=== PATIENT | male | born 1955 | race Caucasian/White ===

== ENCOUNTER → 2017-01-23 | Outpatient (CLI) | payer BC ==
[2017-01-23 20:10] LABS: Basophils # (A) 0.1 k/uL (0-0.2); Basophils % (A) 1 %; CH 29.2; CHCM 31.8; Eosinophils # (A) 0.2 k/uL (0-0.7); Eosinophils % (A) 3 %; HCT 46.1 % (39.0-53.0); HDW 2.75; HGB 14.4 gm/dL (13.0-17.5); Hypochromasia Slight; Luc # (Auto) 0.12; Luc % (Auto) 2; Lymphocytes # (A) 1.3 k/uL (1.0-4.8); Lymphocytes % (A) 25 %; MCH 28.9 pg (25.0-35.0); MCHC 31.3 g/dL (31.0-37.0); MCV 92.4 fL (80.0-100.0); Mean Platelet Volume 8.9; Monocytes # (A) 0.3 k/uL (0-1.0); Monocytes % (A) 5 %; Neutrophils # (A) 3.3 k/uL (1.3-7.7); Neutrophils % (A) 64 %; RBC 4.99 m/uL (4.30-5.90); RDW 15.2 % (11.5-15.5); WBC 5.2 k/uL (3.8-10.6); WBC (Perox) 5.36
[2017-01-23 20:20] LABS: ALT 46 U/L (21-72); AST 63 U/L (17-59); Alkaline Phosphatase 45 U/L (38-126); Anion Gap 12 mmol/L; Blood Urea Nitrogen 22 mg/dL (9-20); Calcium 9.6 mg/dL (8.4-10.2); Carbon Dioxide 24 mmol/L (22-30); Chloride 102 mmol/L (98-107); Cholesterol 174 mg/dL (<200); Glucose 102 mg/dL (74-99); HDL Cholesterol 40 mg/dL (40-60); Non-African American GFR(MDRD) >60 (>60 ml/min/1.73 sqM); Potassium 4.2 mmol/L (3.5-5.1); Sodium 138 mmol/L (137-145); Total Bilirubin 0.8 mg/dL (0.2-1.3); Total Protein 6.3 g/dL (6.3-8.2); Triglycerides 160 mg/dL (<150)
== END ==
LOC: MMGSC 12:10
PROVIDERS: ATTEND Family Medicine
DX: Z00.00 Encounter for general adult medical examination without abnormal findings (principal); I10 Essential (primary) hypertension; Z12.5 Encounter for screening for malignant neoplasm of prostate
CPT/HCPCS: 84439; 80053; 80061; 84443; 85025; 36415; G0103

== ENCOUNTER → 2017-05-15 | Outpatient (CLI) | payer BC ==
[2017-05-15 18:44] LABS: ALT 34 U/L (21-72); AST 29 U/L (17-59); Alkaline Phosphatase 52 U/L (38-126); Anion Gap 7 mmol/L; Blood Urea Nitrogen 12 mg/dL (9-20); Calcium 9.3 mg/dL (8.4-10.2); Carbon Dioxide 29 mmol/L (22-30); Chloride 101 mmol/L (98-107); Glucose 81 mg/dL (74-99); Non-African American GFR(MDRD) >60 (>60 ml/min/1.73 sqM); Potassium 4.7 mmol/L (3.5-5.1); Sodium 137 mmol/L (137-145); Total Bilirubin 0.6 mg/dL (0.2-1.3); Total Protein 6.7 g/dL (6.3-8.2)
[2017-05-15 18:45] LABS: Anisocytosis Slight; Basophils % (A) 1 %; CH 29.2; CHCM 33.9; Eosinophils # (A) 0.2 k/uL (0-0.7); Eosinophils % (A) 5 %; HCT 48.4 % (39.0-53.0); HDW 2.49; HGB 15.8 gm/dL (13.0-17.5); Luc # (Auto) 0.11; Luc % (Auto) 2; Lymphocytes # (A) 1.6 k/uL (1.0-4.8); Lymphocytes % (A) 32 %; MCH 28.3 pg (25.0-35.0); MCHC 32.7 g/dL (31.0-37.0); MCV 86.7 fL (80.0-100.0); Mean Platelet Volume 9.5; Monocytes # (A) 0.4 k/uL (0-1.0); Monocytes % (A) 7 %; Neutrophils # (A) 2.7 k/uL (1.3-7.7); Neutrophils % (A) 53 %; RBC 5.59 m/uL (4.30-5.90); RDW 17.7 % (11.5-15.5); WBC 5.1 k/uL (3.8-10.6); WBC (Perox) 4.81
== END | disposition home or self-care (01) ==
LOC: MMGSC 12:43
PROVIDERS: ATTEND Family Medicine
DX: I48.91 Unspecified atrial fibrillation (principal)
CPT/HCPCS: 36415; 80053; 84439; 84443; 85025

== ENCOUNTER 2017-06-25 11:16 | Emergency (ER) | payer BC ==
[2017-06-25 11:27] VITALS: TEMP 97
[2017-06-25] MEDS ORDERED: SODIUM CHLORIDE 0.9% 1,000 ML IV STA ×3 (13:06→13:29)
--- NOTE | 2017-06-25 13:09 | ED ---
Weakness HPI - General Chief complaint: Weakness Stated complaint: weakness Time Seen by Provider: 06/25/17 12:03 Source: patient, family, RN notes reviewed Mode of arrival: ambulatory Limitations: no limitations, physical limitation - History of Present Illness Initial comments: This is a 61-year-old male with a history of A. fib who presents with complaints of generalized weakness 3 days of a dry cough he also states she's not been sleeping very well he also states he's been using more of his hydrocodone and normal or the past 2 months he states when he tries to cut back he says getting burning pain in his left leg which he has had a period he generally just does not feel well here for evaluation. He denies any overt fever but he states he did have hot and cold flashes the last couple days to his lower extremities. Patient does state that he was recently evaluated by his physician as a prelude to possible cardiac ablation by cardiology. He states this started he knows his lab work was normal. MD Complaint: generalized weakness - Related Data Home Medications Medication Instructions Recorded Confirmed Escitalopram [Lexapro] 20 mg PO DAILY 11/27/14 06/25/17 Multivitamins, Thera [Multivitamin] 1 tab PO DAILY 07/07/16 06/25/17 Acetaminophen Tab [Tylenol Tab] 1,000 mg PO Q6HR PRN 06/25/17 06/25/17 Apixaban [Eliquis] 5 mg PO BID 06/25/17 06/25/17 HYDROcodone/APAP 7.5-325MG [[place] 1 tab PO Q6HR PRN 06/25/17 06/25/17 7.5-325] Metoprolol Tartrate [Lopressor] 25 mg PO BID 06/25/17 06/25/17 Previous Rx's Medication Instructions Recorded Hydrocodone/Acetaminophen [[place] 1 tab PO QID #20 tab 06/25/17 Plus 7.5-325 mg Tablet] Hydrocodone/Acetaminophen [[place] 1 each PO Q6HR PRN #20 tab 06/25/17 5-325] Allergies Allergy/AdvReac Type Severity Reaction Status Date / Time No Known Allergies Allergy Verified 06/25/17 13:46 Review of Systems ROS Statement: Those systems with pertinent positive or pertinent negative responses have been documented in the HPI. ROS Other: All systems not noted in ROS Statement are negative. Past Medical History Past Medical History: Atrial Fibrillation, Hypertension Additional Past Medical History / Comment(s): Chronic back pain History of Any Multi-Drug Resistant Organisms: None Reported Past Surgical History: Appendectomy, Orthopedic Surgery Past Psychological History: No Psychological Hx Reported Smoking Status: Never smoker Past Alcohol Use History: None Reported Past Drug Use History: None Reported General Exam - General Exam Comments Initial Comments: This is a well-developed well-nourished awake alert oriented 3 male Limitations: no limitations, physical limitation General appearance: alert, in no apparent distress Head exam: Present: atraumatic, normocephalic, normal inspection Eye exam: Present: normal appearance, PERRL, EOMI. Absent: scleral icterus, conjunctival injection, periorbital swelling ENT exam: Present: mucous membranes dry Neck exam: Present: normal inspection. Absent: tenderness, meningismus, lymphadenopathy Respiratory exam: Present: normal lung sounds bilaterally. Absent: respiratory distress, wheezes, rales, rhonchi, stridor Cardiovascular Exam: Present: regular rate, normal rhythm, tachycardia, irregular rhythm. Absent: systolic murmur, diastolic murmur, rubs, gallop, clicks GI/Abdominal exam: Present: soft, normal bowel sounds. Absent: distended, tenderness, guarding, rebound, rigid Extremities exam: Present: normal inspection, full ROM, normal capillary refill. Absent: tenderness, pedal edema, joint swelling, calf tenderness Back exam: Present: normal inspection Neurological exam: Present: alert, oriented X3, CN II-XII intact Psychiatric exam: Present: normal affect, normal mood Skin exam: Present: warm, dry, intact, normal color. Absent: rash Course Vital Signs 06/25/17 06/25/17 11:23 14:18 Temperature 97.0 F L Pulse Rate 90 89 Respiratory 18 18 Rate Blood Pressure 138/93 121/66 O2 Sat by Pulse 98 98 Oximetry EKG Findings - EKG Results: EKG: interpreted by KEIKO (Atrial fibrillation rate was 93 QRS 92 QT since QTC of 370/469 st-t wave changes.) Medical Decision Making - Medical Decision Making I did discuss findings with the patient he will be discharged he will be placed on appropriate medication is a follow-up with his doctors as possible the presentation is consistent with withdrawal - Lab Data Result diagrams: 06/25/17 13:26 06/25/17 13:26 Lab Results 06/25/17 06/25/17 06/25/17 Range/Units 13:26 13:26 13:26 WBC 6.9 (3.8-10.6) k/uL RBC 4.98 (4.30-5.90) m/uL Hgb 14.9 (13.0-17.5) gm/dL Hct 44.4 (39.0-53.0) % MCV 89.2 (80.0-100.0) fL MCH 29.8 (25.0-35.0) pg MCHC 33.5 (31.0-37.0) g/dL RDW 15.6 H (11.5-15.5) % Plt Count 197 (150-450) k/uL Neutrophils % 73 % Lymphocytes % 18 % Monocytes % 4 % Eosinophils % 3 % Basophils % 1 % Neutrophils # 5.1 (1.3-7.7) k/uL Lymphocytes # 1.3 (1.0-4.8) k/uL Monocytes # 0.3 (0-1.0) k/uL Eosinophils # 0.2 (0-0.7) k/uL Basophils # 0.0 (0-0.2) k/uL Sodium 138 (137-145) mmol/L Potassium 4.2 (3.5-5.1) mmol/L Chloride 103 (98-107) mmol/L Carbon Dioxide 24 (22-30) mmol/L Anion Gap 11 mmol/L BUN 10 (9-20) mg/dL Creatinine 1.11 (0.66-1.25) mg/dL Est GFR (MDRD) Af Amer >60 (>60 ml/min/1.73 sqM) Est GFR (MDRD) Non-Af >60 (>60 ml/min/1.73 sqM) Glucose 154 H (74-99) mg/dL Calcium 9.1 (8.4-10.2) mg/dL Magnesium 1.9 (1.6-2.3) mg/dL Total Bilirubin 0.4 (0.2-1.3) mg/dL AST 25 (17-59) U/L ALT 24 (21-72) U/L Alkaline Phosphatase 75 (38-126) U/L Total Creatine Kinase 519 H (55-170) U/L CK-MB (CK-2) 1.4 (0.0-2.4) ng/mL CK-MB (CK-2) Rel Index 0.3 Total Protein 6.6 (6.3-8.2) g/dL Albumin 3.6 (3.5-5.0) g/dL TSH 0.592 (0.465-4.680) mIU/L - Radiology Data Radiology results: report reviewed (I did review the imaging and reports no acute findings.), image reviewed Disposition Clinical Impression: Medication withdrawal Disposition: HOME SELF-CARE Condition: Good Instructions: Opioid Withdrawal (ED), Opioid Dependence (ED) Prescriptions: Hydrocodone/Acetaminophen [[place] 5-325] 1 each PO Q6HR PRN #20 tab PRN Reason: Pain Hydrocodone/Acetaminophen [[place] Plus 7.5-325 mg Tablet] 1 tab PO QID #20 tab Referrals: Parisa Lee MD [Primary Care Provider] - 1-2 days
--- NOTE | 2017-06-25 13:52 | XR ---
EXAMINATION TYPE: XR chest 2V DATE OF EXAM: 06/25/2017 HISTORY: cough. REFERENCE: NONE. FINDINGS: Heart is mildly enlarged. The lungs are clear. Pleural space are clear. I suspect a hiatal hernia behind the heart. IMPRESSION: 1. CARDIOMEGALY. 2. I'M SUSPICIOUS FOR A HIATAL HERNIA BEHIND THE HEART.
[2017-06-25 14:05] LABS: Basophils % (A) 1 %; CH 29.4; CHCM 33.1; Eosinophils # (A) 0.2 k/uL (0-0.7); Eosinophils % (A) 3 %; HCT 44.4 % (39.0-53.0); HDW 2.68; HGB 14.9 gm/dL (13.0-17.5); Luc # (Auto) 0.07; Luc % (Auto) 1; Lymphocytes # (A) 1.3 k/uL (1.0-4.8); Lymphocytes % (A) 18 %; MCH 29.8 pg (25.0-35.0); MCHC 33.5 g/dL (31.0-37.0); MCV 89.2 fL (80.0-100.0); Mean Platelet Volume 8.1; Monocytes # (A) 0.3 k/uL (0-1.0); Monocytes % (A) 4 %; Neutrophils # (A) 5.1 k/uL (1.3-7.7); Neutrophils % (A) 73 %; RBC 4.98 m/uL (4.30-5.90); RDW 15.6 % (11.5-15.5); WBC 6.9 k/uL (3.8-10.6); WBC (Perox) 6.23
[2017-06-25 14:15] LABS: ALT 24 U/L (21-72); AST 25 U/L (17-59); Alkaline Phosphatase 75 U/L (38-126); Anion Gap 11 mmol/L; Blood Urea Nitrogen 10 mg/dL (9-20); Calcium 9.1 mg/dL (8.4-10.2); Carbon Dioxide 24 mmol/L (22-30); Chloride 103 mmol/L (98-107); Glucose 154 mg/dL (74-99); Magnesium 1.9 mg/dL (1.6-2.3); Non-African American GFR(MDRD) >60 (>60 ml/min/1.73 sqM); Potassium 4.2 mmol/L (3.5-5.1); Sodium 138 mmol/L (137-145); Total Bilirubin 0.4 mg/dL (0.2-1.3); Total Protein 6.6 g/dL (6.3-8.2)
[2017-06-25 14:34] LABS: Creatine Kinase MB 1.4 ng/mL (0.0-2.4)
[2017-06-25 15:24] VITALS: BP 123/65; PULSE 102; RESP 20
== END 2017-06-25 15:24 | disposition home or self-care (01) ==
LOC: EC 11:16
DX: F19.230 Other psychoactive substance dependence with withdrawal, uncomplicated (principal); R05 Cough; I48.91 Unspecified atrial fibrillation; I10 Essential (primary) hypertension; Z79.01 Long term (current) use of anticoagulants; Z79.899 Other long term (current) drug therapy
CPT/HCPCS: 36415; 71020; 80053; 82550; 82553; 83735; 84443; 85025; 87040; 93005; 96360; 96361; 99285

== ENCOUNTER 2018-06-10 17:45 | Emergency (ER) | payer BC ==
[2018-06-10] MEDS ORDERED: SODIUM CHLORIDE 0.9% 500 ML IV STA (18:23)
[2018-06-10] MEDS ORDERED: MAG HYDROX/AL HYDROX/SIMETH 30 ML, HYOSCYAMINE ELIXIR 10 ML, CIMETIDINE HCL 300 MG, LID... PO STA ×4 (18:24)
--- NOTE | 2018-06-10 18:29 | ED ---
Abdominal Pain HPI - General Chief Complaint: Abdominal Pain Stated Complaint: Abd Pain Time Seen by Provider: 06/10/18 18:14 Source: patient, RN notes reviewed Mode of arrival: ambulatory Limitations: no limitations - History of Present Illness Initial Comments: This is a 62-year-old male who presents to the emergency department with chief complaint of abdominal pain. Patient states since 8 PM last evening he has had constant, burning epigastric pain. He states that he has not eaten anything today because he has also felt nauseous. Denies fevers or chills, vomiting or diarrhea, chest pain or shortness of breath. Patient reports a history of GERD and hiatal hernia. He states he took Pepcid today with minimal relief. - Related Data Home Medications Medication Instructions Recorded Confirmed Escitalopram [Lexapro] 20 mg PO DAILY 11/27/14 06/25/17 Multivitamins, Thera [Multivitamin] 1 tab PO DAILY 07/07/16 06/25/17 Acetaminophen Tab [Tylenol Tab] 1,000 mg PO Q6HR PRN 06/25/17 06/25/17 Apixaban [Eliquis] 5 mg PO BID 06/25/17 06/25/17 Metoprolol Tartrate [Lopressor] 25 mg PO BID 06/25/17 06/25/17 Previous Rx's Medication Instructions Recorded Hydrocodone/Acetaminophen [[place] 1 tab PO QID #20 tab 06/25/17 Plus 7.5-325 mg Tablet] Hydrocodone/Acetaminophen [[place] 1 each PO Q12H PRN #20 tab 06/25/17 5-325] Omeprazole [PriLOSEC] 20 mg PO AC-BRKFST #14 cap 06/10/18 Allergies Allergy/AdvReac Type Severity Reaction Status Date / Time No Known Allergies Allergy Verified 06/10/18 17:54 Review of Systems ROS Statement: Those systems with pertinent positive or pertinent negative responses have been documented in the HPI. ROS Other: All systems not noted in ROS Statement are negative. Past Medical History Past Medical History: Atrial Fibrillation, Hypertension Additional Past Medical History / Comment(s): Chronic back pain History of Any Multi-Drug Resistant Organisms: None Reported Past Surgical History: Appendectomy, Orthopedic Surgery Past Psychological History: No Psychological Hx Reported Smoking Status: Never smoker Past Alcohol Use History: None Reported Past Drug Use History: None Reported General Exam - General Exam Comments Initial Comments: General: Awake and alert, well-developed; in no apparent distress. Sitting comfortably on ED stretcher. Does not appear acutely ill. HEENT: Head atraumatic, normocephalic. Pupils are equal, round and reactive to light. Extraocular movements intact. Oropharynx moist without erythema or exudate. Neck: Supple. Normal ROM. Cardiovascular: Regular rate and rhythm. No murmurs, rubs or gallops. Chest symmetrical. Pedal pulses are 2+ equal and palpable bilaterally. Respiratory: Lungs clear to auscultation bilaterally. No wheezes, rales or rhonchi. Normal respiratory effort with no use of accessory muscles. Abdomen: Soft, non-distended. Mild tenderness on palpation of LUQ and epigastrium with voluntary guarding. No rigidity or rebound. Normal bowel sounds in all 4 quadrants. Musculoskeletal: Normal ROM, no tenderness bilateral upper and lower extremities. Skin: [place], warm and dry without rashes or lesions. Neurological: Alert and oriented x3. CN II-XII grossly intact. Speech is fluent and answers are appropriate. No focal neuro deficits. Psychiatric: Normal mood and affect. No overt signs of depression or anxiety noted. Limitations: no limitations Course Vital Signs 06/10/18 06/10/18 06/10/18 17:51 19:32 20:14 Temperature 97.5 F L Pulse Rate 107 H 81 83 Respiratory 18 18 17 Rate Blood Pressure 131/65 128/76 134/98 O2 Sat by Pulse 98 96 96 Oximetry - Reevaluation(s) Reevaluation #1: At this time, patient is resting comfortably in bed. He reports complete resolution of his symptoms after receiving GI cocktail. Abdomen is soft and non -tender. Case discussed with attending physician, Dr. Maxwell. Patient will be sent for an abdominal x-ray at this time. 06/10/18 19:59 Medical Decision Making - Medical Decision Making This is a 62-year-old male who presents to the emergency department with chief complaint of abdominal pain. Patient reports burning epigastric pain since 8 PM last evening. CBC and CMP reveal no significant abnormalities. Patient was given a GI cocktail while in the emergency department and reports complete resolution of his symptoms. Abdomen is soft and non-tender. X-ray KUB reveals no acute abnormalities. Patient will be started on Prilosec and instructed to follow-up with his primary care provider. Vital signs are stable and patient is in no acute distress. He will be discharged home at this time. He is in agreement and voices understanding. All questions were answered. - Lab Data Result diagrams: 06/10/18 18:25 06/10/18 18:25 Lab Results 06/10/18 06/10/18 06/10/18 Range/Units 18:25 18:25 18:25 WBC 5.7 (3.8-10.6) k/uL RBC 4.98 (4.30-5.90) m/uL Hgb 14.6 (13.0-17.5) gm/dL Hct 42.7 (39.0-53.0) % MCV 85.8 (80.0-100.0) fL MCH 29.4 (25.0-35.0) pg MCHC 34.3 (31.0-37.0) g/dL RDW 14.1 (11.5-15.5) % Plt Count 166 (150-450) k/uL Neutrophils % 76 % Lymphocytes % 16 % Monocytes % 5 % Eosinophils % 2 % Basophils % 0 % Neutrophils # 4.4 (1.3-7.7) k/uL Lymphocytes # 0.9 L (1.0-4.8) k/uL Monocytes # 0.3 (0-1.0) k/uL Eosinophils # 0.1 (0-0.7) k/uL Basophils # 0.0 (0-0.2) k/uL PT 10.8 (9.0-12.0) sec INR 1.1 (<1.2) APTT 29.6 (22.0-30.0) sec Sodium 140 (137-145) mmol/L Potassium 4.9 (3.5-5.1) mmol/L Chloride 104 (98-107) mmol/L Carbon Dioxide 28 (22-30) mmol/L Anion Gap 8 mmol/L BUN 18 (9-20) mg/dL Creatinine 0.92 (0.66-1.25) mg/dL Est GFR (CKD-EPI)AfAm >90 (>60 ml/min/1.73 sqM) Est GFR (CKD-EPI)NonAf 90 (>60 ml/min/1.73 sqM) Glucose 107 H (74-99) mg/dL Calcium 9.6 (8.4-10.2) mg/dL Total Bilirubin 0.6 (0.2-1.3) mg/dL AST 47 (17-59) U/L ALT 31 (21-72) U/L Alkaline Phosphatase 72 (38-126) U/L Total Protein 6.8 (6.3-8.2) g/dL Albumin 3.7 (3.5-5.0) g/dL Amylase 62 (30-110) U/L Lipase 41 (23-300) U/L - EKG Data EKG Comments: DT: 06:44. Atrial fibrillation. Nonspecific T-wave abnormality, prolonged QT. Ventricular rate 85 bpm, QRS duration 96, QT/QTC 388/461 - Radiology Data Radiology results: report reviewed X-ray KUB findings: Bowel gas pattern is normal. There is no sign of intestinal obstruction or pneumoperitoneum. Fecal pattern is normal. There is spurring in the lumbar spine. There are no pathologic calcifications over the kidneys. Impression: Nonacute abdomen. As read by Dr. Mccormick. Disposition Clinical Impression: Dyspepsia Disposition: HOME SELF-CARE Condition: Good Instructions: Indigestion (ED) Additional Instructions: Please take medications as prescribed. Please follow up with primary care provider within 1-2 days. Return to emergency department if symptoms should worsen or any concerns arise. Prescriptions: Omeprazole [PriLOSEC] 20 mg PO AC-BRKFST #14 cap Is patient prescribed a controlled substance at d/c from ED?: No Referrals: None,Stated [Primary Care Provider] - 1-2 days Time of Disposition: 20:22
[2018-06-10 18:35] LABS: Basophils % (A) 0 %; Eosinophils # (A) 0.1 k/uL (0-0.7); Eosinophils % (A) 2 %; HCT 42.7 % (39.0-53.0); HGB 14.6 gm/dL (13.0-17.5); Lymphocytes # (A) 0.9 k/uL (1.0-4.8); Lymphocytes % (A) 16 %; MCH 29.4 pg (25.0-35.0); MCHC 34.3 g/dL (31.0-37.0); MCV 85.8 fL (80.0-100.0); Mean Platelet Volume 7.8; Monocytes # (A) 0.3 k/uL (0-1.0); Monocytes % (A) 5 %; Neutrophils # (A) 4.4 k/uL (1.3-7.7); Neutrophils % (A) 76 %; Platelet Count 166 k/uL (150-450); RBC 4.98 m/uL (4.30-5.90); RDW 14.1 % (11.5-15.5); WBC 5.7 k/uL (3.8-10.6)
[2018-06-10 18:45] LABS: ALT 31 U/L (21-72); AST 47 U/L (17-59); Albumin 3.7 g/dL (3.5-5.0); Alkaline Phosphatase 72 U/L (38-126); Amylase 62 U/L (30-110); Anion Gap 8 mmol/L; Blood Urea Nitrogen 18 mg/dL (9-20); Calcium 9.6 mg/dL (8.4-10.2); Carbon Dioxide 28 mmol/L (22-30); Chloride 104 mmol/L (98-107); Glucose 107 mg/dL (74-99); INR 1.1 (<1.2); Lipase 41 U/L (23-300); Partial Thromboplastin Time 29.6 sec (22.0-30.0); Potassium 4.9 mmol/L (3.5-5.1); Prothrombin Time 10.8 sec (9.0-12.0); Sodium 140 mmol/L (137-145); Total Bilirubin 0.6 mg/dL (0.2-1.3); Total Protein 6.8 g/dL (6.3-8.2)
[2018-06-10 20:16] VITALS: BP 134/98; PULSE 83; RESP 17
--- NOTE | 2018-06-10 20:17 | XR ---
EXAMINATION TYPE: XR KUB DATE OF EXAM: 06/10/2018 COMPARISON: NONE HISTORY: Abdominal pain TECHNIQUE: 2 views upright FINDINGS: Bowel gas pattern is normal. There is no sign of intestinal obstruction or pneumoperitoneum . Fecal pattern is normal. There is spurring in the lumbar spine. There are no pathologic calcificati ons over the kidneys. IMPRESSION: Nonacute abdomen.
[2018-06-10 20:39] VITALS: TEMP 97.3
== END 2018-06-10 20:39 | disposition home or self-care (01) ==
LOC: EC 17:45
DX: R10.13 Epigastric pain (principal); R11.0 Nausea; K21.9 Gastro-esophageal reflux disease without esophagitis; I48.91 Unspecified atrial fibrillation; I10 Essential (primary) hypertension; Z87.19 Personal history of other diseases of the digestive system; Z90.49 Acquired absence of other specified parts of digestive tract; Z79.01 Long term (current) use of anticoagulants; Z79.899 Other long term (current) drug therapy
CPT/HCPCS: 36415; 74018; 80053; 82150; 83690; 85025; 85610; 85730; 93005; 99284

== ENCOUNTER 2018-06-11 10:59 | Emergency (ER) | payer BC ==
[2018-06-11 11:06] VITALS: RESP 18
[2018-06-11] MEDS ORDERED: SODIUM CHLORIDE 0.9% 1,000 ML IV STA (12:21)
[2018-06-11] MEDS ORDERED: PANTOPRAZOLE 40 MG/10 ML VIAL IVP STA (12:21)
[2018-06-11] MEDS ORDERED: LORazepam 2 MG/ML INJ IV STA (12:24)
--- NOTE | 2018-06-11 12:26 | ED ---
General Adult HPI - General Chief complaint: Recheck/Abnormal Lab/Rx Stated complaint: Shakey Time Seen by Provider: 06/11/18 12:00 Source: patient, family, RN notes reviewed Mode of arrival: wheelchair Limitations: no limitations - History of Present Illness Initial comments: Patient is a pleasant [age]-year-old male presenting to the emergency Department with complaints of feeling restless and anxious. Patient does have a history of anxiety. Patient has had several recent change in his anxiety medicine. Patient states he was in the emergency department last night with epigastric discomfort. Patient states he received some medicine that did resolve his symptoms. Patient still has no epigastric discomfort at this time. Patient denies ever having chest discomfort. Patient states he has felt restless since he left. Patient did not have much of an appetite this morning. Patient feels like it is hard to sit still and wants to get up and pace. - Related Data Home Medications Medication Instructions Recorded Confirmed Multivitamins, Thera [Multivitamin] 1 tab PO DAILY 07/07/16 06/11/18 Acetaminophen Tab [Tylenol Tab] 1,000 mg PO Q6HR PRN 06/25/17 06/11/18 Apixaban [Eliquis] 5 mg PO BID 06/25/17 06/11/18 Metoprolol Tartrate [Lopressor] 25 mg PO BID 06/25/17 06/11/18 DULoxetine HCL [Cymbalta] 30 mg PO DAILY 06/11/18 06/11/18 Previous Rx's Medication Instructions Recorded Omeprazole [PriLOSEC] 20 mg PO AC-BRKFST #14 cap 06/10/18 Allergies Allergy/AdvReac Type Severity Reaction Status Date / Time No Known Allergies Allergy Verified 06/11/18 11:52 Review of Systems ROS Statement: Those systems with pertinent positive or pertinent negative responses have been documented in the HPI. ROS Other: All systems not noted in ROS Statement are negative. Constitutional: Denies: fever Eyes: Denies: eye pain ENT: Denies: ear pain Respiratory: Denies: cough, dyspnea Cardiovascular: Denies: chest pain Endocrine: Denies: fatigue Gastrointestinal: Denies: vomiting Genitourinary: Denies: dysuria Musculoskeletal: Denies: back pain Skin: Denies: rash Neurological: Denies: headache Psychiatric: Reports: anxiety Past Medical History Past Medical History: Atrial Fibrillation, Hypertension Additional Past Medical History / Comment(s): Chronic back pain History of Any Multi-Drug Resistant Organisms: None Reported Past Surgical History: Appendectomy, Orthopedic Surgery Past Psychological History: Anxiety Smoking Status: Never smoker Past Alcohol Use History: None Reported Past Drug Use History: None Reported General Exam Limitations: no limitations General appearance: alert, in no apparent distress Head exam: Present: atraumatic Eye exam: Present: normal appearance Neck exam: Present: normal inspection Respiratory exam: Present: normal lung sounds bilaterally Cardiovascular Exam: Present: regular rate, normal rhythm Expanded Peripheral pulses: 2+: Dorsalis Pedis (R), Dorsalis Pedis (L) GI/Abdominal exam: Present: soft, normal bowel sounds. Absent: distended, tenderness, guarding, rebound, rigid, pulsatile mass Extremities exam: Present: normal inspection. Absent: pedal edema, calf tenderness Neurological exam: Present: alert, normal gait Psychiatric exam: Present: anxious Skin exam: Present: normal color Course Vital Signs 06/11/18 06/11/18 11:02 13:28 Temperature 97.6 F Pulse Rate 89 89 Respiratory 18 18 Rate Blood Pressure 124/68 131/78 O2 Sat by Pulse 99 98 Oximetry EKG Findings - EKG Comments: EKG Findings:: A. fib with rate of 87. QRS 100. QT 278. QTC 454. Normal axis. Normal QRS. Nonspecific T waves. Medical Decision Making - Medical Decision Making Patient reexamined and symptoms have resolved. Patient and family updated on results and need for follow-up. Patient does have a psychiatrist that he can follow-up with - Lab Data Result diagrams: 06/11/18 12:56 06/11/18 12:56 Lab Results 06/11/18 06/11/18 06/11/18 Range/Units 12:56 12:56 12:56 WBC 6.6 (3.8-10.6) k/uL RBC 4.98 (4.30-5.90) m/uL Hgb 14.4 (13.0-17.5) gm/dL Hct 42.4 (39.0-53.0) % MCV 85.1 (80.0-100.0) fL MCH 28.9 (25.0-35.0) pg MCHC 33.9 (31.0-37.0) g/dL RDW 14.0 (11.5-15.5) % Plt Count 172 (150-450) k/uL Neutrophils % 76 % Lymphocytes % 17 % Monocytes % 5 % Eosinophils % 1 % Basophils % 0 % Neutrophils # 5.0 (1.3-7.7) k/uL Lymphocytes # 1.1 (1.0-4.8) k/uL Monocytes # 0.3 (0-1.0) k/uL Eosinophils # 0.1 (0-0.7) k/uL Basophils # 0.0 (0-0.2) k/uL PT (9.0-12.0) sec INR (<1.2) APTT (22.0-30.0) sec Sodium 138 (137-145) mmol/L Potassium 4.8 (3.5-5.1) mmol/L Chloride 101 (98-107) mmol/L Carbon Dioxide 28 (22-30) mmol/L Anion Gap 9 mmol/L BUN 16 (9-20) mg/dL Creatinine 0.97 (0.66-1.25) mg/dL Est GFR (CKD-EPI)AfAm >90 (>60 ml/min/1.73 sqM) Est GFR (CKD-EPI)NonAf 85 (>60 ml/min/1.73 sqM) Glucose 105 H (74-99) mg/dL Calcium 9.4 (8.4-10.2) mg/dL Total Bilirubin 0.8 (0.2-1.3) mg/dL AST 52 (17-59) U/L ALT 24 (21-72) U/L Alkaline Phosphatase 63 (38-126) U/L Total Protein 6.8 (6.3-8.2) g/dL Albumin 3.7 (3.5-5.0) g/dL Amylase 72 (30-110) U/L Lipase 75 (23-300) U/L Urine Color Yellow Urine Appearance Clear (Clear) Urine pH 6.0 (5.0-8.0) Ur Specific [place] 1.020 (1.001-1.035) Urine Protein 2+ H (Negative) Urine Glucose (UA) Negative (Negative) Urine Ketones Trace H (Negative) Urine Blood Negative (Negative) Urine Nitrite Negative (Negative) Urine Bilirubin Negative (Negative) Urine Urobilinogen <2.0 (<2.0) mg/dL Ur Leukocyte Esterase Negative (Negative) Urine WBC 1 (0-5) /hpf Urine Mucus Rare H (None) /hpf 06/11/18 Range/Units 12:56 WBC (3.8-10.6) k/uL RBC (4.30-5.90) m/uL Hgb (13.0-17.5) gm/dL Hct (39.0-53.0) % MCV (80.0-100.0) fL MCH (25.0-35.0) pg MCHC (31.0-37.0) g/dL RDW (11.5-15.5) % Plt Count (150-450) k/uL Neutrophils % % Lymphocytes % % Monocytes % % Eosinophils % % Basophils % % Neutrophils # (1.3-7.7) k/uL Lymphocytes # (1.0-4.8) k/uL Monocytes # (0-1.0) k/uL Eosinophils # (0-0.7) k/uL Basophils # (0-0.2) k/uL PT 10.9 (9.0-12.0) sec INR 1.1 (<1.2) APTT 28.3 (22.0-30.0) sec Sodium (137-145) mmol/L Potassium (3.5-5.1) mmol/L Chloride (98-107) mmol/L Carbon Dioxide (22-30) mmol/L Anion Gap mmol/L BUN (9-20) mg/dL Creatinine (0.66-1.25) mg/dL Est GFR (CKD-EPI)AfAm (>60 ml/min/1.73 sqM) Est GFR (CKD-EPI)NonAf (>60 ml/min/1.73 sqM) Glucose (74-99) mg/dL Calcium (8.4-10.2) mg/dL Total Bilirubin (0.2-1.3) mg/dL AST (17-59) U/L ALT (21-72) U/L Alkaline Phosphatase (38-126) U/L Total Protein (6.3-8.2) g/dL Albumin (3.5-5.0) g/dL Amylase (30-110) U/L Lipase (23-300) U/L Urine Color Urine Appearance (Clear) Urine pH (5.0-8.0) Ur Specific [place] (1.001-1.035) Urine Protein (Negative) Urine Glucose (UA) (Negative) Urine Ketones (Negative) Urine Blood (Negative) Urine Nitrite (Negative) Urine Bilirubin (Negative) Urine Urobilinogen (<2.0) mg/dL Ur Leukocyte Esterase (Negative) Urine WBC (0-5) /hpf Urine Mucus (None) /hpf Disposition Clinical Impression: Restlessness Disposition: HOME SELF-CARE Condition: Stable Instructions: Generalized Anxiety Disorder (ED) Additional Instructions: Please follow-up with primary care physician in the next day or 2 for recheck. Please also follow-up with your psychiatrist this week. Return for worsening or changing symptoms or other concerns. Is patient prescribed a controlled substance at d/c from ED?: No Referrals: Robbie Bradford MD [REFERRING] - 1-2 days Manolo Anne III, MD [STAFF PHYSICIAN] - 1-2 days Time of Disposition: 14:05
[2018-06-11 13:27] LABS: Basophils % (A) 0 %; Eosinophils # (A) 0.1 k/uL (0-0.7); Eosinophils % (A) 1 %; HCT 42.4 % (39.0-53.0); HGB 14.4 gm/dL (13.0-17.5); Lymphocytes # (A) 1.1 k/uL (1.0-4.8); Lymphocytes % (A) 17 %; MCH 28.9 pg (25.0-35.0); MCHC 33.9 g/dL (31.0-37.0); MCV 85.1 fL (80.0-100.0); Mean Platelet Volume 7.9; Monocytes # (A) 0.3 k/uL (0-1.0); Monocytes % (A) 5 %; Neutrophils % (A) 76 %; Platelet Count 172 k/uL (150-450); RBC 4.98 m/uL (4.30-5.90); WBC 6.6 k/uL (3.8-10.6)
[2018-06-11 13:37] LABS: Albumin 3.7 g/dL (3.5-5.0); Amylase 72 U/L (30-110); Anion Gap 9 mmol/L; Blood Urea Nitrogen 16 mg/dL (9-20); Calcium 9.4 mg/dL (8.4-10.2); Carbon Dioxide 28 mmol/L (22-30); Chloride 101 mmol/L (98-107); Glucose 105 mg/dL (74-99); Lipase 75 U/L (23-300); Sodium 138 mmol/L (137-145); Total Bilirubin 0.8 mg/dL (0.2-1.3); Total Protein 6.8 g/dL (6.3-8.2)
[2018-06-11 13:38] LABS: INR 1.1 (<1.2); Partial Thromboplastin Time 28.3 sec (22.0-30.0); Prothrombin Time 10.9 sec (9.0-12.0)
[2018-06-11 13:43] LABS: Appearance,Urine Clear (Clear); Bilirubin,Urine Negative (Negative); Blood,Urine Negative (Negative); Color,Urine Yellow; Glucose,Urine (UA) Negative (Negative); Ketones,Urine Trace (Negative); Leukocyte Esterase,Urine Negative (Negative); Mucus,Urine Rare /hpf; Nitrite,Urine Negative (Negative); Protein,Urine 2+ (Negative); Urobilinogen,Urine <2.0 mg/dL (<2.0); WBC,Urine 1 /hpf (0-5)
[2018-06-11 13:47] LABS: ALT 24 U/L (21-72); AST 52 U/L (17-59); Alkaline Phosphatase 63 U/L (38-126); Potassium 4.8 mmol/L (3.5-5.1)
[2018-06-11 14:16] VITALS: BP 144/75; PULSE 84; TEMP 97.8
== END 2018-06-11 14:14 | disposition home or self-care (01) ==
LOC: EC 10:59
DX: R45.1 Restlessness and agitation (principal); F41.9 Anxiety disorder, unspecified; I10 Essential (primary) hypertension; I48.91 Unspecified atrial fibrillation; Z79.01 Long term (current) use of anticoagulants; Z79.899 Other long term (current) drug therapy
CPT/HCPCS: 36415; 93005; 80053; 82150; 83690; 85025; 85610; 85730; 81001; 99283; 96374; 96375; 96361; J2060; C9113

== ENCOUNTER → 2019-06-26 | Outpatient (CLI) | payer BC ==
[2019-06-26 18:47] LABS: T4, Free (Free Thyroxine) 1.1 ng/dL (0.80-1.80)
== END | disposition home or self-care (01) ==
LOC: LABWHC1 12:30
PROVIDERS: ATTEND Physician Assistant
DX: I48.91 Unspecified atrial fibrillation (principal)
CPT/HCPCS: 36415; 84439; 84443; 84481

== ENCOUNTER 2021-03-16 06:06 | Day surgery (SDC) | payer BC ==
[2021-03-16] MEDS ORDERED: SODIUM CHLORIDE 0.9% 500 ML 500 ML IV ONE (06:25)
[2021-03-16 06:42] VITALS: RESP 16; TEMP 98.1
[2021-03-16] MEDS ORDERED: fentaNYL (PF) 50 MCG/ML 2 ML AMP ONE (07:10)
[2021-03-16] MEDS: BENZOCAINE SPRAY 1 CAN MUCOUS MEM ONE ×2 (07:18→07:20)
[2021-03-16] MEDS ORDERED: MIDAZOLAM 2 MG/2 ML VIAL IV ONE ×2 (07:19→07:25)
[2021-03-16] MEDS ORDERED: fentaNYL (PF) 50 MCG/ML 2 ML AMP IV ONE (07:19)
[2021-03-16] MEDS ORDERED: SODIUM CHLORIDE 0.9% 1,000 ML IV SCH (08:00)
--- NOTE | 2021-03-16 08:14 | ECHOT ---
TRANSESOPHAGEAL ECHOCARDIOGRAM PROCEDURE PERFORMED: Transesophageal echocardiogram. INDICATION: Evaluation of mitral valve and aortic valve. PROCEDURE: After explaining the procedure to the patient, its risks and the complications, his blood pressure, heart rate, O2 saturation was monitored. The throat was sprayed with Cetacaine. He received 4 mg intravenous Versed, 50 mcg intravenous fentanyl. The probe was introduced into the esophagus without difficulty. Images were obtained. Following that, the probe was removed. There was no immediate complication. Patient is returned to his room in stable condition. FINDINGS: Left atrial size is dilated. Left atrial appendage is normal. Left ventricular size and systolic function normal. There was no evidence of segmental wall motion abnormality. The aortic valve is a tricuspid valve, fibrocalcific with preserved opening. Mitral valve revealed thickening of the mitral valve leaflet with mild prolapse. The tricuspid valve is normal. Descending thoracic aorta appears to be normal. There was no pericardial effusion. Contrast bubble study revealed no evidence of shunting across the interatrial septum. Doppler pulse wave and color Doppler obtained revealed severe eccentric mitral regurgitation with severe aortic regurgitation and mild to moderate tricuspid regurgitation. There was evidence of vaqu-du-ibraw shunting through a patent foramen ovale. The right ventricular systolic pressure was less than 35 mmHg. CONCLUSION: 1. Dilated left atrium with normal appearance of the left atrial appendage. 2. Normal left ventricular size and systolic function. 3. Severe eccentric mitral regurgitation. 4. Severe aortic regurgitation. 5. Mild to moderate tricuspid regurgitation. 6. Patent foramina ovale with [id number] shunting. 7. No pericardial effusion. MMODL / IJN: [id number] /
[2021-03-16 15:43] VITALS: BP 100/68; PULSE 82
[2021-03-16] MEDS ORDERED: METOPROLOL TARTRATE 25 MG TAB PO SCH (16:00)
[2021-03-16] MEDS ORDERED: LORazepam 1 MG TAB PO SCH (21:00)
[2021-03-16] MEDS ORDERED: APIXABAN 5 MG TAB PO SCH (21:00)
[2021-03-17] MEDS ORDERED: METOPROLOL TARTRATE 50 MG TAB PO SCH (09:00)
[2021-03-17] MEDS ORDERED: MULTIVITAMINS, THERA 1 EACH TAB PO SCH (09:00)
[2021-03-17] MEDS ORDERED: DIGOXIN 125 MCG TAB PO SCH (09:00)
[2021-03-17] MEDS ORDERED: ESCITALOPRAM 20 MG TAB PO SCH (09:00)
== END 2021-03-16 09:05 | disposition home or self-care (01) ==
LOC: CATHCVL 06:06
PROVIDERS: ATTEND Internal Medicine Interventional Cardiology
DX: I08.3 Combined rheumatic disorders of mitral, aortic and tricuspid valves (principal); I48.91 Unspecified atrial fibrillation; Q21.1 Atrial septal defect; Z79.899 Other long term (current) drug therapy; Z72.0 Tobacco use; Z79.01 Long term (current) use of anticoagulants; Z79.891 Long term (current) use of opiate analgesic
CPT/HCPCS: 93312; 93320; 93325; J2250; J3010

== ENCOUNTER → 2021-04-09 | Outpatient (CLI) | payer BC ==
[2021-04-09 16:01] LABS: HGB 8.4 gm/dL (13.0-17.5); Hypochromasia Marked; MCH 25.3 pg (25.0-35.0); MCV 81.5 fL (80.0-100.0); Mean Platelet Volume 9.9; Platelet Count 229 k/uL (150-450); Poikilocytosis Slight; RBC 3.32 m/uL (4.30-5.90); RDW 15.4 % (11.5-15.5); WBC 3.4 k/uL (3.8-10.6)
[2021-04-09 16:14] LABS: African American GFR (CKD) >90 (>60 ml/min/1.73 sqM); Anion Gap 6 mmol/L; Blood Urea Nitrogen 9 mg/dL (9-20); Carbon Dioxide 30 mmol/L (22-30); Chloride 99 mmol/L (98-107); Non-African American GFR(CKD) >90 (>60 ml/min/1.73 sqM); Potassium 4.3 mmol/L (3.5-5.1); Sodium 135 mmol/L (137-145)
== END | disposition home or self-care (01) ==
LOC: LABPAT 15:02
PROVIDERS: ATTEND Internal Medicine Interventional Cardiology
DX: Z01.812 Encounter for preprocedural laboratory examination (principal); I34.0 Nonrheumatic mitral (valve) insufficiency
CPT/HCPCS: 80051; 82565; 84520; 85027

== ENCOUNTER 2021-04-14 06:29 | Day surgery (SDC) | payer BC ==
[2021-04-12 10:15] VITALS: BMI 27.0
[~2021-04-14 06:29] MED LIST: ALPRAZolam 0.25 MG TAB PO PRN; ALPRAZolam 0.5 MG TAB PO PRN; ASPIRIN 325 MG TAB PO STA; HEPARIN SODIUM,PORCINE 10,000 UNIT in SODIUM CHLORIDE 0.9% 1,000 ML IRRIGATION PRN; HEPARIN SODIUM,PORCINE 2,500 UNIT in SODIUM CHLORIDE 0.9% 250 ML IRRIGATION PRN; NITROGLYCERIN SL TABS 0.4 MG TAB SUBLINGUAL PRN; SODIUM CHLORIDE 0.9% 1,000 ML in EMPTY BAG 1 BAG IV ONE
[2021-04-14 07:18] LABS: Basophils # (A) 0.1 k/uL (0-0.2); Basophils % (A) 2 %; Eosinophils # (A) 0.2 k/uL (0-0.7); Eosinophils % (A) 4 %; HCT 28.6 % (39.0-53.0); HGB 8.8 gm/dL (13.0-17.5); Hypochromasia Marked; Lymphocytes % (A) 28 %; MCH 24.6 pg (25.0-35.0); MCHC 30.8 g/dL (31.0-37.0); MCV 79.7 fL (80.0-100.0); Mean Platelet Volume 9.9; Monocytes # (A) 0.3 k/uL (0-1.0); Monocytes % (A) 8 %; Neutrophils % (A) 54 %; Platelet Count 292 k/uL (150-450); Poikilocytosis Slight; RBC 3.58 m/uL (4.30-5.90); RDW 15.4 % (11.5-15.5); WBC 3.7 k/uL (3.8-10.6)
[2021-04-14 07:26] VITALS: RESP 16; TEMP 98.8
[2021-04-14 07:33] LABS: African American GFR (CKD) >90 (>60 ml/min/1.73 sqM); Anion Gap 8 mmol/L; Blood Urea Nitrogen 7 mg/dL (9-20); Carbon Dioxide 30 mmol/L (22-30); Chloride 99 mmol/L (98-107); Glucose 94 mg/dL (74-99); Non-African American GFR(CKD) 88 (>60 ml/min/1.73 sqM); Sodium 137 mmol/L (137-145)
[2021-04-14] MEDS ORDERED: fentaNYL (PF) 50 MCG/ML 2 ML AMP IV ONE (07:41)
[2021-04-14] MEDS ORDERED: LIDOCAINE 1% INJ 10MG/ML (20 ML MDV) SQ ONE (07:50)
[2021-04-14] MEDS: MIDAZOLAM 2 MG/2 ML VIAL IV ONE ×2 (07:51→07:58)
[2021-04-14] MEDS ORDERED: VERAPAMIL SYRINGE (5 MG/10 ML) INTRAARTER ONE (07:57)
[2021-04-14 08:19] LABS: O2 Sat Blood Gas 54.3 %
[2021-04-14] MEDS ORDERED: IOPAMIDOL-370 125ML BTL INJ ONE (08:20)
[2021-04-14 08:23] LABS: O2 Sat Blood Gas 96.2 %
[2021-04-14] MEDS ORDERED: RX INFO: IV CONTRAST WAS GIVEN 1 EACH MISC MISCELLANE PRN (08:33)
[2021-04-14] MEDS ORDERED: SODIUM CHLORIDE 0.9% 1,000 ML IV SCH (08:45)
[2021-04-14] MEDS ORDERED: ESCITALOPRAM 20 MG TAB PO SCH (09:00)
--- NOTE | 2021-04-14 11:43 | CC ---
CARDIAC CATHETERIZATION REPORT Mr. Pace is a 65-year-old male with known history of chronic persistent atrial fibrillation who has a history of aortic and mitral regurgitation, who has been complaining of progressive dyspnea. Has been evaluated and followed by Dr. Gordillo. In view of his symptoms and his findings, recommendations were made regarding cardiac catheterization. The procedure as well as the risks and the complications were discussed with the patient who is in full understanding and agreement. PROCEDURE: Patient was brought to labor mediator in a fasting after receiving fentanyl and Benadryl and achieving moderate conscious sedated state. Using Xylocaine anesthesia and Seldinger technique, a 6-Finnish sheath was introduced in the right radial artery. Subsequently, the intravenous catheter in the basilic vein was exchanged using a guidewire exchange, a 6-Finnish sheath and subsequently selective right heart catheterization was performed using Roann-Riki catheter. Multiple pressures and samples were obtained. Cardiac output by thermodilution was calculated. Following that selective right and left coronary angiography performed using 5-Finnish 3.5 bend right Casey' catheter. Multiple views including hemiaxial views were obtained. The right Casey catheter was used to cross the aortic valve and left ventricular end-diastolic pressure was calculated. Following that, a 6 a 5-Finnish tight pigtail catheter was left in the ascending aorta and MALAYSIAN aortogram was performed. Following that, catheter and sheaths were removed. Hemostasis was obtained with deployment of a TR band, and compression on the basilic vein. The patient received 4000 units of intravenous heparin as well as intra-arterial verapamil. HEMODYNAMICS: Pulmonary artery saturation 54%, right atrial saturation 52%, arterial saturation 96%. Cardiac output by thermodilution 5.8 L/minute with an index of 3.0 L/ minute per M square. Cardiac output by Ramón 6.2 L/minute with an index 3.3 L/minute per M squared. Pulmonary artery systolic pressure of 38 with a diastolic of 16 and a mean of 25 mmHg. Pulmonary capillary wedge pressure V-wave of 30 with a mean of 18 mmHg. Right ventricular systolic pressure of 40 with an end-diastolic of 6 mmHg. Right atrial v wave history of 12 with a mean of 10 mmHg. There was no gradient across the aortic valve. The left ventriclar end-diastolic pressure is 12-16 mmHg. FLUOROSCOPY: There was severe calcification involving all the coronary arteries predominantly on the LAD. LEFT MAIN: This is a large-sized vessel, bifurcating into left circumflex. Left main coronary artery has no evidence of high-grade stenosis. Left anterior descending artery: This is a large-sized vessel reaching to the apex with a wraparound apex segment giving rise to 2 diagonal branch left main this artery has mild intimal disease of 10 to 20% without any evidence of high-grade stenosis. Left circumflex: This is a large nondominant vessel giving rise to 2 obtuse marginal branch the first one is large in caliber. The left circumflex has mild intimal disease of 10 to 20% without any evidence of high-grade stenosis. RCA: This is a large dominant vessel bifurcating into PDA and posterolateral segment and branches the right coronary artery is calcified and has mild intimal disease of 20% to 30% in the mid segment without any evidence of high-grade stenosis. AORTOGRAM: Aortogram was performed in the MALAYSIAN view and revealed 3 to 4+ aortic regurgitation with a tricuspid aortic valve. CONCLUSION: 1. Calcified coronary arteries with mild triple-vessel coronary artery disease. 2. 3 to 4+ aortic regurgitation with a tricuspid aortic valve. RECOMMENDATION: In view of finding anatomy, the patient will be evaluated for the need to undergo aortic and mitral valve surgery. He has elevated V-waves in his pulmonary capillary wedge pressure consistent with mitral regurgitation. Those findings and recommendation were discussed with the patient and his family and they are in full understanding and agreement. MMODL / IJN: [id number] /
[2021-04-14 12:05] VITALS: BP 98/49
[2021-04-14 12:06] VITALS: PULSE 59
[2021-04-14] MEDS ORDERED: METOPROLOL TARTRATE 25 MG TAB PO SCH (16:00)
[2021-04-15] MEDS ORDERED: DIGOXIN 125 MCG TAB PO SCH (09:00)
[2021-04-15] MEDS ORDERED: METOPROLOL TARTRATE 50 MG TAB PO SCH (09:00)
== END 2021-04-14 12:40 | disposition home or self-care (01) ==
LOC: CATHCVL 06:29
PROVIDERS: ATTEND Internal Medicine Interventional Cardiology
DX: I25.10 Atherosclerotic heart disease of native coronary artery without angina pectoris (principal); I25.84 Coronary atherosclerosis due to calcified coronary lesion; I48.19 Other persistent atrial fibrillation; Z79.01 Long term (current) use of anticoagulants; I35.1 Nonrheumatic aortic (valve) insufficiency; Z79.899 Other long term (current) drug therapy; I34.0 Nonrheumatic mitral (valve) insufficiency; Q21.1 Atrial septal defect; F17.210 Nicotine dependence, cigarettes, uncomplicated
CPT/HCPCS: 93460; 80048; 85018; 82810; 85025; C1894; C1751; C1769; J2250; J2001; J3010; J1644; Q9967

== ENCOUNTER → 2021-12-16 | Outpatient (CLI) | payer MEDICARE ==
[2021-12-16 10:29] LABS: INR 1.1 (<1.2); Partial Thromboplastin Time 34.1 sec (22.0-30.0); Prothrombin Time 12.1 sec (9.0-12.0)
--- NOTE | 2021-12-16 12:24 | ECHOF ---
Referral Reason:Aortic Regurg Mitral Regurg A Fib Z01.818 MEASUREMENTS -------- HEIGHT: 172.7 cm WEIGHT: 74.8 kg BP: RVIDd: 3.3 cm (< 3.3) IVSd: 1.4 cm (0.6 - 1.1) LVIDd: 5.7 cm (3.9 - 5.3) LVPWd: 1.0 cm (0.6 - 1.1) IVSs: 1.7 cm LVIDs: 3.7 cm LVPWs: 1.7 cm LA Diam: 6.1 cm (2.7 - 3.8) LAESV Index (A-L): 84.83 ml/m Ao Diam: 3.8 cm (2.0 - 3.7) AV Cusp: 2.2 cm (1.5 - 2.6) LA Diam: 5.6 cm (2.7 - 3.8) MV EXCURSION: 16.462 mm (> 18.000) MV EF SLOPE: 123 mm/s (70 - 150) EPSS: 0.4 cm AV maxP.59 mmHg AV meanP.79 mmHg AR PHT: 793 ms RAP: 5.00 mmHg RVSP: 48.92 mmHg FINDINGS -------- Atrial fibrillation. This was a technically good study. The left ventricular size is normal. There is moderate concentric left ventricular hypertrophy. O verall left ventricular systolic function is low-normal with, an EF between 50 - 55 %. The right ventricle is normal in size. LA is severely dilated >40 ml/m2 The right atrial size is normal. PFO. There is mild aortic valve sclerosis. There is cwmfdltq-dd-vvtxym aortic regurgitation. Consider HARMEET if severe aortic insufficiency or severe mitral regurgitation a concern given very eccentric jets . The mitral valve leaflets are mildly thickened. Xkopvnwg-kg-zgsegk mitral regurgitation is present. Moderate tricuspid regurgitation present. There is mild pulmonary hypertension. The right ventric ular systolic pressure, as measured by Doppler, is 48.92mmHg. There is no pulmonic regurgitation present. There is no pericardial effusion. CONCLUSIONS -------- 1. The left ventricular size is normal. 2. There is moderate concentric left ventricular hypertrophy. 3. Overall left ventricular systolic function is low-normal with, an EF between 50 - 55 %. 4. The right ventricle is normal in size. 5. LA is severely dilated >40 ml/m2 6. The right atrial size is normal. 7. PFO. 8. There is mild aortic valve sclerosis. 9. There is epphbmit-uo-nvexnr aortic regurgitation. 10. Consider HARMEET if severe aortic insufficiency or severe mitral regurgitation a concern given very e ccentric jets. 11. The mitral valve leaflets are mildly thickened. 12. Smvplbav-fr-jpxwct mitral regurgitation is present. 13. Moderate tricuspid regurgitation present. 14. There is mild pulmonary hypertension. 15. The right ventricular systolic pressure, as measured by Doppler, is 48.92mmHg. 16. There is no pulmonic regurgitation present. 17. There is no pericardial effusion. HORSE WRANGLER: Yue Yu RDCS
[2021-12-16 14:31] LABS: HCT 27.9 % (39.6-50.0); HGB 8.1 g/dL (13.0-17.0); MCH 22.5 pg (27.0-32.0); MCV 77.5 fL (80.0-97.0); Mean Platelet Volume 10.4 fL (9.5-12.2); NRBC Per 100 WBC 0 /100 WBCS (0.0-0.0); Platelet Count 163 X 10*3/uL (140-440); RDW 18.9 % (11.5-14.5); WBC 3.24 X 10*3/uL (4.50-10.00)
--- NOTE | 2021-12-16 15:18 | XR ---
EXAMINATION TYPE: XR chest 2V DATE OF EXAM: 12/16/2021 COMPARISON: 10/26/2016 HISTORY: 66-year-old male [id number], presurgical testing. TECHNIQUE: Frontal and lateral views FINDINGS: Patient rotated towards the left. Heart borderline in size. Aorta and pulmonary vasculature within no rmal limits. No consolidation or pleural effusion. IMPRESSION: Borderline cardiomegaly. No acute process seen. Rotated exam.
--- NOTE | 2021-12-16 15:20 | US ---
EXAMINATION TYPE: US carotid duplex BILAT DATE OF EXAM: 12/16/2021 COMPARISON: NONE CLINICAL HISTORY: 66-year-old male OPEN HEART. TECHNIQUE: Carotid duplex ultrasound examination. Indirect Doppler criteria was utilized. FINDINGS: EXAM MEASUREMENTS: RIGHT: Peak Systolic Velocity (PSV) cm/sec ----- Right CCA: 75 ----- Right ICA: 107 ----- Right ECA: 89.5 ICA/CCA ratio: 1.4 RIGHT: End Diastole cm/sec ----- Right CCA: 12.5 ----- Right ICA: 41.6 ----- Right ECA: 0 LEFT: Peak Systolic Velocity (PSV) cm/sec ----- Left CCA: 107.6 ----- Left ICA: 97.9 ----- Left ECA: 189.6 ICA/CCA ratio: 0.9 LEFT: End Diastole cm/sec ----- Left CCA: 17.1 ----- Left ICA: 18.7 ----- Left ECA: 0 VERTEBRALS (direction of flow): Right Vertebral: Antegrade Left Vertebral: Antegrade Rhythm: Normal Waste Machine Tender notes: No significant stenosis seen IMPRESSION: No hemodynamically significant internal carotid artery stenosis on either side. Criteria for Assigning % of Stenosis / Diameter reduction (Estimation based on the indirect measurements of the internal carotid artery velocities (ICA PSV). 1. Normal (no stenosis)=ICA PSV < 125 cm/s: ratio < 2.0: ICA EDV<40 cm/s. 2. Less than 50% stenosis=ICA PSV < 125 cm/s: ratio < 2.0: ICA EDV<40 cm/s. 3. 50 to 69% stenosis=ICA PSV of 125 to 230 cm/s: ration 2.0 ? 4.0: ICA EDV 40-100 cm/s. 4. Greater than 70% stenosis to near occlusion= ICA PSV > 230 cm/s: ratio > 4.0: ICA EDV > 100 cm/s. 5. Near occlusion= ICA PSV velocities may be low or undetectable: variable ratio and ICA EDV. 6. Total occlusion=unable to detect flow.
[2021-12-16 15:38] LABS: ALT 13 U/L (10-49); AST 21 U/L (14-35); African American GFR (CKD) 108.8 (60.0-200.0); Albumin 3.8 g/dL (3.8-4.9); Albumin/Globulin Ratio 1.85 (1.60-3.17); Alkaline Phosphatase 80 U/L (41-126); BUN/Creat Ratio 16.42 Ratio (12.00-20.00); Blood Urea Nitrogen 13.1 mg/dL (9.0-27.0); Carbon Dioxide 27.4 mmol/L (20.0-27.5); Chloride 101 mmol/L (96-109); Globulin 2.1 g/dL (1.6-3.3); Glucose 89 mg/dL (70-110); LDL Cholesterol,Calculated 51.3 mg/dL (0.0-131.0); Magnesium 1.9 mg/dL (1.5-2.4); Non-African American GFR(CKD) 93.8 (60.0-200.0); Potassium 3.8 mmol/L (3.5-5.5); Sodium 140 mmol/L (135-145); Total Bilirubin <0.15 mg/dL (0.30-1.20); Total Protein 5.9 g/dL (6.2-8.2)
[2021-12-16 17:12] LABS: Hepatitis A Antibody IgM Nonreactive (Nonreactive); Hepatitis B Core IgM Nonreactive (Nonreactive); Hepatitis B Surface Antigen Nonreactive (Nonreactive); Hepatitis C IgG Antibody Nonreactive (Nonreactive)
[2021-12-16 19:45] LABS: Appearance,Urine Clear (Clear); Bilirubin,Urine Negative (Negative); Blood,Urine Negative (Negative); Color,Urine Yellow (Yellow); Ketones,Urine Negative (Negative); Nitrite,Urine Negative (Negative); Specific Gravity,Urine 1.022 (1.001-1.030); Urobilinogen,Urine 0.2 (0.2,1.0)
--- NOTE | 2021-12-17 06:46 | US ---
EXAMINATION TYPE: US vein mapping BIL DATE OF EXAM: 12/16/2021 12:21 PM COMPARISON: NONE CLINICAL HISTORY: OPEN HEART. Open heart SIDE PERFORMED: Bilateral TECHNIQUE: Lower extremity saphenous vein is examined and measured utilizing real time linear array sonography. Patient History: Smoker: No Heart Disease: No Previous DVT: No Vascular Surgery: No Discoloration: No Hypertension: No Diabetes: No Paralysis: No Varicosities: No Edema: No DUPLEX FINDINGS: Greater Saphenous: Color flow seen Measurements in mm: Right Greater Saphenous: Groin: 5.1 x 7.4 mm High Thigh: 3.5 x 2.3 mm Mid Thigh: 2.0 x 1.6 mm Above Knee: 1.8 x 1.5 mm Knee: 2.3 x 2.2 mm Below Knee: 1.7 x 1.5 mm Mid Calf: 2.3 x 1.8 mm At Ankle: Not visualized. Left Greater Saphenous: Groin: 4.2 x 4.7 mm High Thigh: 2.6 x 1.6 mm Mid Thigh: 1.5 x 1.6 mm Above Knee: 1.4 x 1.8 mm Knee: 2.0 x 1.1 mm Below Knee: 1.2 x 1.4 mm Mid Calf: 1.9 x 1.8 mm At Ankle: Not visualized. Patient has very small veins vessels dive deep. IMPRESSION: 1. Bilateral GSV measurements listed above. 2. Performing surgeon to determine viability as conduit.
--- NOTE | 2021-12-17 06:57 | US ---
EXAMINATION TYPE: US arterial LE single level DATE OF EXAM: 12/16/2021 1:16 PM CLINICAL HISTORY: OPEN HEART. Pre op open heart. Hx hyperlipidemia. Doppler Waveforms: Right: Multiphasic, dorsalis pedis appears more monophasic. Left: Multiphasic Pressure Gradients: Ankle-Brachial Indices: Right: 1.35 Left: 1.30 Toe Brachial Indices: Right: 1.01 Left: 0.94 IMPRESSION: Normal study.
== END ==
LOC: LABWHC1 09:07
PROVIDERS: ATTEND Thoracic Surgery (Cardiothoracic Vascular Surgery)
DX: Z01.810 Encounter for preprocedural cardiovascular examination (principal); R94.31 Abnormal electrocardiogram [ECG] [EKG]; I48.91 Unspecified atrial fibrillation; I08.3 Combined rheumatic disorders of mitral, aortic and tricuspid valves; I27.20 Pulmonary hypertension, unspecified
CPT/HCPCS: 36415; 71046; 80053; 80061; 80074; 81001; 83036; 83735; 84443; 85027; 85610; 85730; 87070; 87086; 93005; 93306; 93880; 93922; 93970; 94150

== ENCOUNTER → 2021-12-23 | Outpatient (CLI) | payer MEDICARE ==
--- NOTE | 2021-12-23 10:10 | US ---
EXAMINATION TYPE: US abdomen complete DATE OF EXAM: 12/23/2021 COMPARISON: NONE CLINICAL HISTORY: R16.1 SPLENOMEGALY. EXAM MEASUREMENTS: Liver Length: 14.2 cm CBD: 0.6 cm Spleen: 12.0 cm Right Kidney: 10.2 x 6.0 x 6.0 cm Left Kidney: 11.1 x 6.1 x 6.0 cm Pancreas: obscured by overlying midline bowel gas Liver: scanned intercostally, 1.6cm cyst right lobe Gallbladder: surgically absent Evidence for sonographic Wagner's sign: no CBD: visualized portions wnl, limited by overlying bowel gas Spleen: visualized portions wnl, limited by overlying bowel gas and rib shadowing Right Kidney: 2.0cm cystic area lateral inferior pole appears simple Left Kidney: 2 cystic areas lateral mid pole measuring 4.6cm and 3.7cm , some images demonstrate a s imple cystic appearance, image #44 and 41 however shows some questionable low-level internal echoes w hich may be artifactual within the upper pole left kidney. Upper IVC: wnl Abd Aorta: proximal portion obscured by overlying midline bowel gas, mid and distal portions show no aneurysm, atheromatous changes are present The liver is homogenous. The intrahepatic portion of the IVC and proximal abdominal aorta are within normal limits. There is no evidence of cholelithiasis. Common bile duct is unremarkable. The visu alized portions of the pancreas are homogenous. The spleen is unremarkable. Kidneys are symmetric a nd free of hydronephrosis. No renal lesions are seen. IMPRESSION: Right lobe liver cyst appears simple. Somewhat limited exam. Postcholecystectomy change. Poorly characterized upper pole cyst left kidney thought likely to be technical, consider short inter renee follow-up, CT or MRI could BE performed for additional evaluation. Spleen measures 12 cm on today 's exam.
== END | disposition home or self-care (01) ==
LOC: RADUSWWP 08:14
PROVIDERS: ATTEND Internal Medicine Hematology & Oncology
DX: K76.89 Other specified diseases of liver (principal); Z90.49 Acquired absence of other specified parts of digestive tract
CPT/HCPCS: 76700

== ENCOUNTER → 2022-03-23 | Outpatient (CLI) | payer MEDICARE ==
[2022-03-23 12:20] LABS: INR 1.1 (<1.2); Partial Thromboplastin Time 31.1 sec (22.0-30.0); Prothrombin Time 11.7 sec (9.0-12.0)
--- NOTE | 2022-03-23 12:52 | XR ---
EXAMINATION TYPE: XR chest 2V DATE OF EXAM: 03/23/2022 COMPARISON: 12/16/2021 HISTORY: Shortness of breath TECHNIQUE: Frontal and lateral views of the chest are obtained. FINDINGS: Scattered senescent parenchymal changes noted. No evidence for infiltrate. No evidence for atelectasis. Heart size is stable. Mediastinal structures are stable and grossly unremarkable. No evidence for hilar prominence. Degenerative changes dorsal spine. IMPRESSION: 1. No evidence for acute pulmonary disease.
[2022-03-23 19:43] LABS: HCT 36.2 % (39.6-50.0); HGB 11.5 g/dL (13.0-17.0); MCH 27.6 pg (27.0-32.0); MCHC 31.8 g/dL (32.0-37.0); MCV 86.8 fL (80.0-97.0); Mean Platelet Volume 11.2 fL (9.5-12.2); NRBC Per 100 WBC 0 /100 WBCS (0.0-0.0); Platelet Count 119 X 10*3/uL (140-440); RBC 4.17 X 10*6/uL (4.40-5.60); RDW 19.3 % (11.5-14.5); WBC 2.96 X 10*3/uL (4.50-10.00)
[2022-03-23 21:15] LABS: Appearance,Urine Clear (Clear); Bilirubin,Urine Negative (Negative); Blood,Urine Negative (Negative); Color,Urine Yellow (Yellow); Ketones,Urine Negative (Negative); Nitrite,Urine Negative (Negative); PH, Urine 5.5 (5.0-8.0); Specific Gravity,Urine 1.018 (1.001-1.030)
[2022-03-24 02:48] LABS: ALT 17 U/L (10-49); AST 23 U/L (14-35); African American GFR (CKD) 108.6 (60.0-200.0); Albumin 3.6 g/dL (3.8-4.9); Albumin/Globulin Ratio 1.64 (1.60-3.17); Alkaline Phosphatase 84 U/L (41-126); BUN/Creat Ratio 13.75 Ratio (12.00-20.00); Calcium 8.9 mg/dL (8.7-10.3); Carbon Dioxide 27.7 mmol/L (20.0-27.5); Chloride 101 mmol/L (96-109); Chol/HDL Ratio 2.96 Ratio; Globulin 2.2 g/dL (1.6-3.3); Glucose 111 mg/dL (70-110); LDL Cholesterol,Calculated 42.9 mg/dL (0.0-131.0); Magnesium 1.9 mg/dL (1.5-2.4); Non-African American GFR(CKD) 93.7 (60.0-200.0); Sodium 139 mmol/L (135-145); Total Protein 5.8 g/dL (6.2-8.2)
[2022-03-24 03:06] LABS: Hepatitis A Antibody IgM Nonreactive (Nonreactive); Hepatitis B Core IgM Nonreactive (Nonreactive); Hepatitis B Surface Antigen Nonreactive (Nonreactive); Hepatitis C IgG Antibody Nonreactive (Nonreactive)
== END | disposition home or self-care (01) ==
LOC: LABWHC1 11:03
PROVIDERS: ATTEND Thoracic Surgery (Cardiothoracic Vascular Surgery)
DX: I48.91 Unspecified atrial fibrillation (principal); I35.2 Nonrheumatic aortic (valve) stenosis with insufficiency; R06.02 Shortness of breath; R94.31 Abnormal electrocardiogram [ECG] [EKG]
CPT/HCPCS: 36415; 71046; 80053; 80061; 80074; 81003; 83036; 83735; 84443; 85027; 85610; 85730; 87070; 87086; 93005

== ENCOUNTER 2022-03-25 08:00 | Inpatient (IN) | payer MEDICARE ==
[2022-03-29] MEDS ORDERED: TRANEXAMIC ACID 2,000 MG in SODIUM CHLORIDE 0.9% 80 ML IV ONE (05:00)
[2022-03-29] MEDS ORDERED: MAGNESIUM SULFATE 16.24 MEQ in EMPTY SYRINGE 1 SYR IV ONE (05:00)
[2022-03-29] MEDS ORDERED: CALCIUM CHLORIDE 100 MG/ML 10 ML SYRINGE IV ONE (05:00)
[2022-03-29] MEDS ORDERED: ALBUMIN HUMAN 5% 500 ML IVPB ONE (05:00)
[2022-03-29] MEDS ORDERED: LACTATED RINGERS 1,000 ML IV ONE ×2 (05:00→06:33)
[2022-03-29] MEDS ORDERED: propofoL 1,000 MG/100 ML VIAL IV ONE (05:00)
[2022-03-29] MEDS ORDERED: ALBUMIN HUMAN 25% 50 ML IV ONE (05:00)
[2022-03-29] MEDS ORDERED: ELECTROLYTE-A SOLUTION 1,000 ML with POTASSIUM CHLORIDE 40 MEQ, MAGNESIUM SULFATE 16 ME... IV ONE ×5 (05:00)
[2022-03-29] MEDS ORDERED: HEPARIN SODIUM 1,000 UN/ML (10ML VL) IV ONE (05:00)
[2022-03-29] MEDS ORDERED: INSULIN REGULAR 100 UNIT in SODIUM CHLORIDE 0.9% 100 ML IV ONE (05:00)
[2022-03-29] MEDS ORDERED: ASPIRIN 325 MG TAB PO ONE ×2 (05:00→06:43)
[2022-03-29] MEDS ORDERED: ceFAZolin 1,000 MG in SODIUM CHLORIDE 0.9% IRRIGATIO 1,000 ML IRRIGATION ONE (05:00)
[2022-03-29] MEDS ORDERED: ELECTROLYTE-A SOLUTION 1,000 ML with POTASSIUM CHLORIDE 100 MEQ, MAGNESIUM SULFATE 16 M... IV ONE ×5 (05:00)
[2022-03-29] MEDS ORDERED: NITROGLYCERIN SL TABS 0.4 MG TAB SUBLINGUAL ONE (05:00)
[2022-03-29] MEDS ORDERED: PROTAMINE SULFATE 10 MG/ML 25 ML VIAL IV ONE ×2 (05:00→07:40)
[2022-03-29] MEDS ORDERED: NITROGLYCERIN-D5W PMX 50 MG in DEXTROSE/WATER 1 250ML.BAG IV ONE (05:00)
[2022-03-29] MEDS ORDERED: MANNITOL 25% 12.5 GM/50 ML VIAL IV ONE (05:00)
[2022-03-29] MEDS ORDERED: PHENYLEPHRINE 10 MG/ML VIAL IV ONE (05:00)
[2022-03-29] MEDS ORDERED: SODIUM BICARB 8.4% 50 ML SYR (1 MEQ/ML) IV ONE (05:00)
[2022-03-29] MEDS ORDERED: CLEVIDIPINE BUTYRATE 25 MG in EMPTY BAG 1 BAG IV ONE (05:00)
[2022-03-29] MEDS ORDERED: PROTAMINE SULFATE 250 MG in EMPTY BAG 1 BAG IV ONE (05:00)
[2022-03-29] MEDS ORDERED: NITROGLYCERIN-D5W PMX 25 MG/250 ML BTL IV ONE (05:00)
[2022-03-29] MEDS ORDERED: HEPARIN SODIUM,PORCINE 5,000 UNIT in SODIUM CHLORIDE 0.9% 500 ML 500 ML IV ONE (05:00)
[2022-03-29] MEDS ORDERED: NOREPINEPHRINE 4 MG in SODIUM CHLORIDE 0.9% 250 ML IV ONE (05:00)
[2022-03-29] MEDS ORDERED: PHENYLEPHRINE 40 MG in SODIUM CHLORIDE 0.9% 250 ML IV ONE (05:00)
[2022-03-29] MEDS ORDERED: METOPROLOL TARTRATE 12.5 MG TAB PO ONE (05:00)
[2022-03-29] MEDS ORDERED: SODIUM CHLORIDE 0.9% 1,000 ML IV ONE (05:00)
[2022-03-29] MEDS ORDERED: CHLORHEXIDINE GLUCONATE 15 ML CUP MUCOUS MEM ONE (05:00)
[2022-03-29] MEDS ORDERED: ATORVASTATIN 10 MG TAB PO ONE (05:00)
[2022-03-29] MEDS ORDERED: POTASSIUM CHLORIDE 20 MEQ in WATER FOR INJECTION 1 100ML.BAG IVPB STA ×2 (06:30→14:57)
[2022-03-29 06:31] LABS: Glucose,Whole Blood 92 mg/dL (70-110)
[2022-03-29] MEDS ORDERED: METOPROLOL TARTRATE 50 MG TAB PO ONE (06:43)
[2022-03-29] MEDS ORDERED: ATORVASTATIN 80 MG TAB PO ONE (06:43)
[2022-03-29] MEDS ORDERED: PROPOFOL 10 MG/ML 20 ML VIAL IV ONE (07:40)
[2022-03-29] MEDS ORDERED: SODIUM CHLORIDE 0.9% IRRIG 1,000 ML BTL IRRIGATION ONE (07:40)
[2022-03-29] MEDS ORDERED: MIDAZOLAM HCL 10 MG/10 ML VIAL ONE (07:40)
[2022-03-29] MEDS ORDERED: ELECTROLYTE-R (PH 7.4) 1,000 ML IV.SOLN IV ONE (07:40)
[2022-03-29] MEDS ORDERED: GLYCOPYRROLATE 0.2 MG/ML 2 ML VIAL ONE (07:40)
[2022-03-29] MEDS ORDERED: TRANEXAMIC ACID IN NACL,ISO-OS 1,000 MG/100 ML BAG ONE (07:40)
[2022-03-29] MEDS ORDERED: NITROGLYCERIN-D5W PMX 50 MG/250 ML BOTTLE IV ONE (07:40)
[2022-03-29] MEDS ORDERED: MAGNESIUM SULFATE 4 MEQ/ML 10ML VIAL ONE (07:40)
[2022-03-29] MEDS ORDERED: HEPARIN SODIUM,PORCINE 10,000 UNIT/ML 1 ML VIAL ONE (07:40)
[2022-03-29] MEDS ORDERED: fentaNYL (PF) 50 MCG/ML 50 ML VIAL ONE (07:40)
[2022-03-29] MEDS ORDERED: LIDOCAINE 2% SYG (PF) 100 MG/5 ML ONE (07:40)
[2022-03-29] MEDS ORDERED: CALCIUM CHLORIDE 100 MG/ML 10 ML SYRINGE ONE (07:40)
[2022-03-29] MEDS ORDERED: ALBUMIN HUMAN 5% (25gm) 500 ML VIAL IVPB ONE (07:40)
[2022-03-29] MEDS ORDERED: ePHEDrine 50 MG/ML 1 ML VIAL ONE (07:40)
[2022-03-29] MEDS ORDERED: VECURONIUM 10 MG VIAL IV ONE (07:40)
[2022-03-29] MEDS ORDERED: SODIUM CHLORIDE 0.9% 100 ML BAG ONE (07:40)
[2022-03-29] MEDS ORDERED: POTASSIUM CHLORIDE OPEN HEART 20 MEQ/50 ML BAG IVPB ONE (07:40)
[2022-03-29] MEDS ORDERED: INSULIN REGULAR 100 UNIT/ML VIAL (IV) ONE (07:40)
[2022-03-29] MEDS ORDERED: ceFAZolin 1,000 MG VIAL ONE (07:40)
[2022-03-29 08:32] LABS: ABG Base Excess 7.1 mmol/L; ABG Glucose Whole Blood 87 mg/dL (75-99); ABG HCO3 31 mmol/L (21-25); ABG Hematocrit 32 % (34.0-46.0); ABG Ionized Calcium 4.7 mg/dL (4.5-5.3); ABG Lactic Acid Whole Blood 0.4 mmol/L (0.5-1.6); ABG Oxygen Saturation 99.6 % (94-97); ABG PCO2 43 mmHg (35-45); ABG PH 7.48 (7.35-7.45); ABG PO2 199 mmHg (83-108); ABG Potassium Whole Blood 3.6 mmol/L (3.4-4.5); ABG Sodium Whole Blood 139 mmol/L (135-146); ABG TCO2 33 mmol/L (19-24)
[2022-03-29 09:04] LABS: ABG Base Excess 6.8 mmol/L; ABG Glucose Whole Blood 109 mg/dL (75-99); ABG HCO3 31 mmol/L (21-25); ABG Hematocrit 31 % (34.0-46.0); ABG Ionized Calcium 4.7 mg/dL (4.5-5.3); ABG Lactic Acid Whole Blood 0.7 mmol/L (0.5-1.6); ABG Oxygen Saturation 99.2 % (94-97); ABG PCO2 44 mmHg (35-45); ABG PH 7.46 (7.35-7.45); ABG PO2 145 mmHg (83-108); ABG Potassium Whole Blood 3.4 mmol/L (3.4-4.5); ABG Sodium Whole Blood 138 mmol/L (135-146); ABG TCO2 33 mmol/L (19-24)
[2022-03-29 10:25] LABS: ABG Base Excess 5.2 mmol/L; ABG Glucose Whole Blood 143 mg/dL (75-99); ABG HCO3 29 mmol/L (21-25); ABG Hematocrit 25 % (34.0-46.0); ABG Lactic Acid Whole Blood 1.2 mmol/L (0.5-1.6); ABG PCO2 37 mmHg (35-45); ABG PO2 313 mmHg (83-108); ABG Sodium Whole Blood 135 mmol/L (135-146); ABG TCO2 30 mmol/L (19-24)
[2022-03-29 10:56] LABS: ABG Base Excess 5.2 mmol/L; ABG Glucose Whole Blood 134 mg/dL (75-99); ABG HCO3 31 mmol/L (21-25); ABG Ionized Calcium 4.3 mg/dL (4.5-5.3); ABG Lactic Acid Whole Blood 1.1 mmol/L (0.5-1.6); ABG PCO2 50 mmHg (35-45); ABG PO2 325 mmHg (83-108); ABG Potassium Whole Blood 4.1 mmol/L (3.4-4.5); ABG Sodium Whole Blood 137 mmol/L (135-146); ABG TCO2 32 mmol/L (19-24)
[2022-03-29 11:28] LABS: ABG Base Excess 6.4 mmol/L; ABG Glucose Whole Blood 150 mg/dL (75-99); ABG HCO3 30 mmol/L (21-25); ABG Ionized Calcium 4.2 mg/dL (4.5-5.3); ABG Lactic Acid Whole Blood 1.1 mmol/L (0.5-1.6); ABG PCO2 36 mmHg (35-45); ABG PH 7.52 (7.35-7.45); ABG PO2 294 mmHg (83-108); ABG Sodium Whole Blood 137 mmol/L (135-146); ABG TCO2 31 mmol/L (19-24)
--- NOTE | 2022-03-29 11:47 | P.ANPRN ---
Procedure Note - Anesthesia - Invasive Line Left Arterial Line Time Out Performed: Yes Date of Procedure: 03/29/22 Time of Procedure: 07:15 (see chart) Location of Patient: PreOp Preparation: Sterile Prep, Sterile Dressing Arterial Line Location: Radial Ultrasound Used: No Needle Guage: 20 Narrative: left radial line placed by SURGERY TECHNICIAN under sterile conditions Right Central Line Time Out Performed: Yes Date of Procedure: 03/29/22 Time of Procedure: 07:30 Location of Patient: PreOp Preparation: Sterile Prep, Sterile Dressing Ultrasound Used: Yes Purpose - Visualization and Identification of Vasculature: Yes Needle Guage: 18 Image Stored and Saved: Yes Narrative: Central line placement per sterile protocol utilized. 9 F cordis using Seldinger technique Right [place] Riki Time Out Performed: Yes Date of Procedure: 03/29/22 Time of Procedure: 07:37 Location of Patient: PreOp Preparation: Sterile Prep, Sterile Dressing Narrative: SWAN had balloon tested and ports flushed. Catheter advanced until PA waveform achieved. Line secured at 43 cm. Good position in main PA on HARMEET
[2022-03-29 12:43] LABS: ABG Base Excess 3.6 mmol/L; ABG Glucose Whole Blood 147 mg/dL (75-99); ABG HCO3 28 mmol/L (21-25); ABG Ionized Calcium 4.8 mg/dL (4.5-5.3); ABG Lactic Acid Whole Blood 1.9 mmol/L (0.5-1.6); ABG Oxygen Saturation 98.4 % (94-97); ABG PCO2 43 mmHg (35-45); ABG PH 7.43 (7.35-7.45); ABG PO2 110 mmHg (83-108); ABG Potassium Whole Blood 3.3 mmol/L (3.4-4.5); ABG Sodium Whole Blood 137 mmol/L (135-146); ABG TCO2 30 mmol/L (19-24)
[2022-03-29 12:52] LABS: ABG Hematocrit 24 % (34.0-46.0)
[2022-03-29 12:53] LABS: ABG Hematocrit 24 % (34.0-46.0)
[2022-03-29 12:54] LABS: ABG Hematocrit 24 % (34.0-46.0)
[2022-03-29] MEDS ORDERED: ALBUMIN HUMAN 5% 250 ML IVPB ONE (13:24)
[2022-03-29] MEDS ORDERED: Magnesium Replacement Protocol 1 EACH MISC MISCELLANE PRN (13:39)
[2022-03-29] MEDS ORDERED: BENZOCAINE/MENTHOL LOZENG 1 EACH LOZENGE MUCOUS MEM PRN (13:39)
[2022-03-29] MEDS ORDERED: ONDANSETRON 4 MG/2 ML VIAL IVP PRN (13:39)
[2022-03-29] MEDS ORDERED: CALCIUM GLUCONATE IN NACL 2 GM in SALINE 1 100ML.BAG IVPB PRN (13:39)
[2022-03-29] MEDS ORDERED: DEXTROSE 5% IN WATER 100 ML with AMIODARONE 150 MG IV PRN (13:39)
[2022-03-29] MEDS ORDERED: IPRATROPIUM-ALBUTEROL 3 ML NEB INHALATION PRN (13:39)
[2022-03-29] MEDS ORDERED: Potassium Replacement Protocol 1 EACH MISC MISCELLANE PRN (13:39)
[2022-03-29] MEDS ORDERED: hydrALAZINE HCL 20 MG/ML 1 ML VIAL IVP PRN (13:39)
[2022-03-29 13:52] LABS: Glucose,Whole Blood 125 mg/dL (70-110)
[2022-03-29] MEDS ORDERED: INSULIN REGULAR 100 UNIT in SODIUM CHLORIDE 0.9% 100 ML IV SCH (14:00)
[2022-03-29 14:01] LABS: Glucose,Whole Blood 138 mg/dL (70-110)
[2022-03-29] MEDS: LACTATED RINGERS 1,000 ML IV SCH (14:08)
[2022-03-29 14:14] LABS: Anisocytosis Slight; Basophils % (A) 0 %; Eosinophils % (A) 1 %; HGB 7.7 gm/dL (13.0-17.5); Lymphocytes # (A) 0.6 k/uL (1.0-4.8); Lymphocytes % (A) 15 %; MCH 29.4 pg (25.0-35.0); MCHC 33.6 g/dL (31.0-37.0); MCV 87.3 fL (80.0-100.0); Mean Platelet Volume 9.4; Microcytosis Slight; Monocytes # (A) 0.3 k/uL (0-1.0); Monocytes % (A) 7 %; Neutrophils # (A) 2.8 k/uL (1.3-7.7); Neutrophils % (A) 76 %; RBC 2.64 m/uL (4.30-5.90); RDW 18.2 % (11.5-15.5); WBC 3.7 k/uL (3.8-10.6)
[2022-03-29 14:20] LABS: Ionized Calcium 4.6 mg/dL (4.5-5.3)
[2022-03-29 14:23] LABS: ABG Base Excess 3.5 mmol/L; ABG HCO3 27 mmol/L (21-25); ABG PCO2 38 mmHg (35-45); ABG PH 7.47 (7.35-7.45); ABG PO2 133 mmHg (83-108); ABG TCO2 28 mmol/L (19-24); Allen Test Performed? Yes
--- NOTE | 2022-03-29 14:28 | XR ---
EXAMINATION TYPE: XR chest 1V portable DATE OF EXAM: 03/29/2022 COMPARISON: 03/23/2022 HISTORY: Postop TECHNIQUE: Single frontal view of the chest is obtained. FINDINGS: ET tube approximately 5.8 cm above liz. NG tube appears in good position. Bilateral oysef st tube and mediastinal drain seen with no sizable pneumothorax. Bibasilar consolidation. Tiny bilate ral effusion. Interstitial changes could be associated with mild CHF. Question epicardial lead and pr osthetic heart valve. Surgical clips right upper quadrant. [place]-Riki catheter seen with the tip overl simone the proximal pulmonary outflow tract. IMPRESSION: Postsurgical change with no sizable pneumothorax. Correlate for mild venous congestion w ith bilateral infiltrate or atelectasis and small pleural effusion.
[2022-03-29 14:34] LABS: INR 1.3 (<1.2); Partial Thromboplastin Time 34.9 sec (22.0-30.0); Prothrombin Time 13.5 sec (9.0-12.0)
[2022-03-29 14:54] LABS: ALT 16 U/L (4-49); African American GFR (CKD) >90 (>60 ml/min/1.73 sqM); Albumin 2.5 g/dL (3.5-5.0); Alkaline Phosphatase 41 U/L (38-126); Anion Gap 2 mmol/L; Blood Urea Nitrogen 7 mg/dL (9-20); Calcium 8.2 mg/dL (8.4-10.2); Carbon Dioxide 27 mmol/L (22-30); Chloride 107 mmol/L (98-107); Glucose 120 mg/dL (74-99); Magnesium 2.2 mg/dL (1.6-2.3); Non-African American GFR(CKD) >90 (>60 ml/min/1.73 sqM); Potassium 3.7 mmol/L (3.5-5.1); Sodium 136 mmol/L (137-145); Total Bilirubin 0.4 mg/dL (0.2-1.3); Total Protein 4.3 g/dL (6.3-8.2)
[2022-03-29 14:55] LABS: AST 97 U/L (17-59)
[2022-03-29] MEDS: IPRATROPIUM-ALBUTEROL 3 ML NEB INHALATION SCH ×2 (14:58→19:21)
[2022-03-29 15:15] LABS: Glucose,Whole Blood 167 mg/dL (70-110)
[2022-03-29] MEDS: AMIODARONE 450 MG in DEXTROSE 5% IN WATER 250 ML IV SCH ×2 (15:23)
[2022-03-29 15:43] LABS: Platelet Count 80 k/uL (150-450)
[2022-03-29] MEDS ORDERED: [UNRECOGNIZED DRUG - OTHER] SUBLINGUAL SCH ×2 (16:00→17:00)
[2022-03-29] MEDS ORDERED: BUPRENORPHINE HCL SUBLINGUAL SCH ×2 (16:00→17:00)
[2022-03-29] MEDS ORDERED: NON FORMULARY DRUG (Buprenorphine Hcl/Naloxone Hcl [Suboxone 8 Mg-2 Mg Sl Film] 1 EACH Fil SUBLINGUAL SCH (16:00)
[2022-03-29] MEDS ORDERED: NALOXONE HCL SUBLINGUAL SCH ×2 (16:00→17:00)
[2022-03-29 16:07] LABS: Glucose,Whole Blood 183 mg/dL (70-110)
[2022-03-29] MEDS: DEXMEDETOMIDINE/0.9% NACL(PMX) 400 MCG in EMPTY BAG 1 BAG IV SCH ×2 (16:07→21:19)
--- NOTE | 2022-03-29 16:13 | P.ANPRN ---
Procedure Note - Anesthesia - HARMEET Intraop Pre Bypass HARMEET Intraop - Anesthesia Indication: AI and MR, PFO Date of Procedure: 03/29/22 Pre-operative Diagnosis: AI, MR, and PFO Post-operative Diagnosis: Same Surgeon: Paxton Spain Left Ventricle: EF 50% Ejection Fraction: Normal Regional Wall Motion Abnormalities: None Left Ventricle Hypertrophy: No R. Ventricle Function: Normal Aortic Valve: Eccentric jet directed to anterior mitral leaflet Anatomy: Trileaflet Aortic Stenosis: None Aortic Regurgitation: Moderate Mitral Valve: multiple jets, central and posterior Mitral Stenosis: None Mitral Regurgitation: Moderate Tricuspid Stenosis: None Tricuspid Regurgitation: Trace Pulmonic Stenosis: None Pulmonic Regurgitation: None R. Atrial Dilation: No R. Atrial PFO: Yes (2 mm) L. Atrial Dilation: Yes Aortic Dissection: No Aortic Calcification: None Plural Effusion: None - HARMEET Intraop Post Bypass HARMEET Intraop Post Bypass Procedure Performed: AVR, MVr, LA appendage ligation, PFO closure Left Ventricle: EF 50% Ejection Fraction: Normal Regional Wall Motion Abnormalities: None R. Ventricle Function: Normal Aortic Valve: Bioprosthetic w/ gradient 19 peak /8 mean mmH2O Mitral Valve: annuloplasty ring 32 mm. Small jet posteriorly outside the ring. Tricuspid: Unchanged Pulmonic: Unchanged Aortic Dissection: No
[2022-03-29 16:31] LABS: Anisocytosis Slight; Basophils % (A) 0 %; Eosinophils % (A) 0 %; HCT 24.8 % (39.0-53.0); HGB 8.3 gm/dL (13.0-17.5); Lymphocytes # (A) 0.4 k/uL (1.0-4.8); Lymphocytes % (A) 9 %; MCH 29.2 pg (25.0-35.0); MCHC 33.4 g/dL (31.0-37.0); MCV 87.5 fL (80.0-100.0); Mean Platelet Volume 9.6; Microcytosis Slight; Monocytes # (A) 0.4 k/uL (0-1.0); Monocytes % (A) 7 %; Neutrophils # (A) 4.3 k/uL (1.3-7.7); Neutrophils % (A) 84 %; RBC 2.84 m/uL (4.30-5.90); RDW 18.2 % (11.5-15.5); WBC 5.1 k/uL (3.8-10.6)
[2022-03-29 16:38] LABS: Platelet Count 96 k/uL (150-450)
[2022-03-29] MEDS: fentaNYL (PF) 50 MCG/ML 2 ML AMP IVP PRN (17:10)
[2022-03-29] MEDS: CLEVIDIPINE BUTYRATE 25 MG in EMPTY BAG 1 BAG IV SCH (17:13)
--- NOTE | 2022-03-29 17:25 | P.CONS ---
History of Present Illness - Reason for Consult Consult date: 03/29/22 - Chief Complaint Medical management - History of Present Illness 66-year-old man with medical history of hypertension, hyperlipidemia, paroxysmal atrial fibrillation, aortic insufficiency, PFO, mitral regurgitation, opioid dependence presented for elective valve repair and PFO closure. Medicine consulted by cardiac surgery team for medical management. Patient is intubated at the time of my evaluation, however, he is able to follow commands and is moving all his extremities. The procedure well without complications. My evaluation, patient is afebrile, 117/54, PA pressures are 30/11, cardiac output is 4.8, cardiac index is 2.6, heart rate is 62, he saturating 100% on mechanical ventilation with FiO2 50%. CBC is significant for anemia to 8.3 and thrombocytopenia to 96; anemia as baseline, thrombo- cytopenia is new. Chemistries are unremarkable. Liver function tests demonstrate an a student ALT ratio of greater than 4 to 1 with an AST of 97 and an ALT of 16; total protein is 4.3, albumin is 2.5. Most recent ABG demonstrates a pH of 7.47, pCO2 of 38, pO2 of 133. Chest x-ray shows postsurgical changes without pneumothorax as well as some mild venous congestion with bilateral pleural effusions that are small. Review of systems could not be done due to patient's intubation. Gen: in no apparent distress, resting comfortably in bed Eyes: PERRL, no scleral injection or icterus HENT: normocephalic, atraumatic, good hearing acuity, moist mucous membranes Neck: no tracheal deviation, full range of motion Resp: Good air exchange, intubated, ventilated CVS: good distal perfusion x 4, no pitting edema GI: soft, NTTP, ND, no hepatosplenomegaly : no suprapubic tenderness, no CVAT, cain catheter is present MSK: no clubbing, no cyanosis, no noted contractures of extremities Skin: no noted rashes, petechiae; temperature of skin is appropriate Neuro: moving all extremities without signs of weakness, CN II-XII intact Lines: Cain catheter, right Leiter-Riki, 2 pleural drains, one mediastinal drain, arterial line Labs and imaging as above Assessment/plan: Anemia Thrombocytopenia Elevated AST -Suspect EtOH abuse -Monitor for EtOH withdrawal -Daily CBC Opiate dependence -Once patient is extubated, can hold off on home Suboxone until pain is better controlled from surgery Paroxysmal atrial fibrillation Hypertension Hyperlipidemia History of aortic insufficiency History of mitral regurgitation Status post aortic valve replacement Status post PFO closure Status post mitral valve repair -Care per primary team Patient is full code Past Medical History Past Medical History: Atrial Fibrillation, Hypertension, Pneumonia Additional Past Medical History / Comment(s): Chronic back pain., pneumonia s everal years ago, recent dx. of low iron, had 3 iron infusions, SOB w/exertion History of Any Multi-Drug Resistant Organisms: None Reported Past Surgical History: Appendectomy, Cholecystectomy, Heart Catheterization, Orthopedic Surgery Additional Past Surgical History / Comment(s): Right bicep tendon repair. Past Anesthesia/Blood Transfusion Reactions: No Reported Reaction Smoking Status: Former smoker - Past Family History Mother Family Medical History: No Reported History Medications and Allergies Home Medications Medication Instructions Recorded Confirmed Type Apixaban [Eliquis] 5 mg PO BID 06/25/17 03/29/22 History Buprenorphine HCl/Naloxone HCl 0.5 each SL QAM 03/12/21 03/29/22 History [Suboxone 8 mg-2 mg Sl Film] Buprenorphine HCl/Naloxone HCl 1 each SL 1600 03/12/21 03/29/22 History [Suboxone 8 mg-2 mg Sl Film] Digoxin [Lanoxin] 125 mcg PO QAM 03/12/21 03/29/22 History Escitalopram Oxalate [Lexapro] 20 mg PO QAM 03/12/21 03/29/22 History LORazepam [Ativan] 0.5 mg PO BID 03/12/21 03/29/22 History Metoprolol Tartrate [Lopressor] 100 mg PO QAM 12/16/21 03/29/22 History Rosuvastatin [Crestor] 10 mg PO DAILY 12/16/21 03/29/22 History Metoprolol Tartrate [Lopressor] 50 mg PO HS 03/23/22 03/29/22 History Mupirocin [Mupirocin 2%] 1 applic NASAL BID #1 tub 03/25/22 03/29/22 Rx Allergies Allergy/AdvReac Type Severity Reaction Status Date / Time No Known Allergies Allergy Verified 03/29/22 06:33 Physical Exam Osteopathic Statement: *. No significant issues noted on an osteopathic structural exam other than those noted in the History and Physical/Consult. Vitals: Vital Signs Temp Pulse Pulse Resp BP BP BP 03/29/22 16:00 97.5 F L 62 14 03/29/22 15:45 61 17 03/29/22 15:30 61 11 L 03/29/22 15:15 61 12 03/29/22 15:12 67 03/29/22 15:01 03/29/22 15:00 61 12 125/79 03/29/22 14:45 61 21 03/29/22 14:40 03/29/22 14:35 03/29/22 14:30 61 21 03/29/22 14:15 61 20 03/29/22 14:00 61 20 03/29/22 13:50 03/29/22 06:11 98.4 F 66 16 123/75 120/69 Pulse Ox FiO2 03/29/22 16:00 100 50 03/29/22 15:45 100 03/29/22 15:30 100 03/29/22 15:15 92 L 03/29/22 15:12 03/29/22 15:01 50 03/29/22 15:00 99 03/29/22 14:45 100 03/29/22 14:40 50 03/29/22 14:35 50 03/29/22 14:30 100 03/29/22 14:15 100 03/29/22 14:00 99 03/29/22 13:50 60 03/29/22 06:11 96 Intake and Output 03/29/22 03/29/22 03/29/22 06:59 14:59 22:59 Intake Total 200 913 292.233 Output Total 3142 328 Balance 200 -2229 -35.767 Intake: IV 200 131 258 CO/CI 20 40 Lactated Ringers 1,000 ml 50 100 @ 50 mls/hr IV .Q20H EVELYN Rx#:[id number] Potassium Chloride 20 meq 100 In Water For Injection 1 100ml.bag @ 50 mls/hr IVPB ONCE STA Rx#: [id number] Pressure 9 18 Intake, IV Titration 34.233 Amount Dexmedetomidine/0.9% NaCl 1.607 (Pmx) 400 mcg In Empty Bag 1 bag @ Titrate IV . Q0M EVELYN Rx#:[id number] Insulin Regular 100 unit 2.862 In Sodium Chloride 0.9% 100 ml @ Per Protocol IV .Q0M EVELYN Rx#:[id number] propofoL 1,000 mg In 29.764 Empty Bag 1 bag @ Titrate IV .Q0M [facility] Rx#: [id number] Blood Product 782 Ffp 24 Pher Acda Unit 215 [id number] Ffp 24 Pher Acda Cnt1 224 Unit [id number] Platelet Pheresis Pas 343 Psoralen Unit [id number] Output: Chest Tube Drainage 232 198 LP/RP 147 93 MS 85 105 Urine 910 130 Estimated Blood Loss 1999 Other: Voiding Method Indwelling Catheter Indwelling Catheter Weight 77.111 kg ABP, PAP, CO, CI - Last 8 Hours Arterial Blood Pressure 117/54 Arterial Blood Pressure 118/56 Arterial Blood Pressure 121/57 Arterial Blood Pressure 127/60 Arterial Blood Pressure 127/62 Arterial Blood Pressure 138/69 Arterial Blood Pressure 138/70 Arterial Blood Pressure 137/69 Arterial Blood Pressure 133/67 Pulmonary Artery Pressure 30/11 Pulmonary Artery Pressure 29/12 Pulmonary Artery Pressure 29/11 Pulmonary Artery Pressure 31/12 Pulmonary Artery Pressure 35/15 Pulmonary Artery Pressure 28/14 Pulmonary Artery Pressure 34/22 Pulmonary Artery Pressure 32/18 Pulmonary Artery Pressure 37/19 Cardiac Output 4.8 Cardiac Output 5 Cardiac Output 5 Cardiac Output 5 Cardiac Output 5.0 Cardiac Output 4.8 Cardiac Output 4.8 Cardiac Output 4.8 Cardiac Output 4.8 Cardiac Index 2.6 Cardiac Index 2.7 Cardiac Index 2.7 Cardiac Index 2.7 Cardiac Index 2.7 Cardiac Index 2.6 Cardiac Index 2.6 Cardiac Index 2.6 Cardiac Index 2.6 Results CBC & Chem 7: 03/29/22 16:00 03/29/22 13:59 Labs: Abnormal Lab Results - Last 24 Hours (Table) 03/23/22 03/29/22 03/29/22 Range/Units 11:30 08:34 09:06 WBC (3.8-10.6) k/uL RBC (4.30-5.90) m/uL Hgb (13.0-17.5) gm/dL Hct (39.0-53.0) % RDW (11.5-15.5) % Plt Count (150-450) k/uL Lymphocytes # (1.0-4.8) k/uL PT (9.0-12.0) sec INR (<1.2) APTT (22.0-30.0) sec ABG pH 7.48 H 7.46 H (7.35-7.45) ABG pCO2 (35-45) mmHg ABG pO2 199 H 145 H (83-108) mmHg ABG HCO3 31 H 31 H (21-25) mmol/L ABG Total CO2 33 H 33 H (19-24) mmol/L ABG O2 Saturation 99.6 H 99.2 H (94-97) % ABG Hematocrit 32 L 31 L (34.0-46.0) % ABG Potassium (3.4-4.5) mmol/L ABG Ionized Calcium (4.5-5.3) mg/dL ABG Glucose 109 H (75-99) mg/dL ABG Lactic Acid 0.4 L (0.5-1.6) mmol/L Hemoglobin 10.4 L 10.2 L (13.0-17.5) gm/dL Sodium (137-145) mmol/L BUN (9-20) mg/dL Creatinine (0.66-1.25) mg/dL Glucose (74-99) mg/dL POC Glucose (mg/dL) (70-110) mg/dL Calcium (8.4-10.2) mg/dL AST (17-59) U/L Total Protein (6.3-8.2) g/dL Albumin (3.5-5.0) g/dL Arterial Blood Potassium (3.4-4.5) mmol/L Arterial Blood Glucose 109 H (75-99) mg/dL Crossmatch See Detail 03/29/22 03/29/22 03/29/22 Range/Units 10:26 10:58 11:30 WBC (3.8-10.6) k/uL RBC (4.30-5.90) m/uL Hgb (13.0-17.5) gm/dL Hct (39.0-53.0) % RDW (11.5-15.5) % Plt Count (150-450) k/uL Lymphocytes # (1.0-4.8) k/uL PT (9.0-12.0) sec INR (<1.2) APTT (22.0-30.0) sec ABG pH 7.50 H 7.52 H (7.35-7.45) ABG pCO2 50 H (35-45) mmHg ABG pO2 313 H 325 H 294 H (83-108) mmHg ABG HCO3 29 H 31 H 30 H (21-25) mmol/L ABG Total CO2 30 H 32 H 31 H (19-24) mmol/L ABG O2 Saturation 100.0 H 100.0 H 100.0 H (94-97) % ABG Hematocrit 25 L 24 L 24 L (34.0-46.0) % ABG Potassium (3.4-4.5) mmol/L ABG Ionized Calcium 4.0 L 4.3 L 4.2 L (4.5-5.3) mg/dL ABG Glucose 143 H 134 H 150 H (75-99) mg/dL ABG Lactic Acid (0.5-1.6) mmol/L Hemoglobin 8.1 L 7.9 L 7.7 L (13.0-17.5) gm/dL Sodium (137-145) mmol/L BUN (9-20) mg/dL Creatinine (0.66-1.25) mg/dL Glucose (74-99) mg/dL POC Glucose (mg/dL) (70-110) mg/dL Calcium (8.4-10.2) mg/dL AST (17-59) U/L Total Protein (6.3-8.2) g/dL Albumin (3.5-5.0) g/dL Arterial Blood Potassium (3.4-4.5) mmol/L Arterial Blood Glucose 143 H 134 H 150 H (75-99) mg/dL Crossmatch 03/29/22 03/29/22 03/29/22 Range/Units 12:44 13:51 13:59 WBC 3.7 L (3.8-10.6) k/uL RBC 2.64 L (4.30-5.90) m/uL Hgb 7.7 L (13.0-17.5) gm/dL Hct 23.0 L (39.0-53.0) % RDW 18.2 H (11.5-15.5) % Plt Count 80 L (150-450) k/uL Lymphocytes # 0.6 L (1.0-4.8) k/uL PT (9.0-12.0) sec INR (<1.2) APTT (22.0-30.0) sec ABG pH (7.35-7.45) ABG pCO2 (35-45) mmHg ABG pO2 110 H (83-108) mmHg ABG HCO3 28 H (21-25) mmol/L ABG Total CO2 30 H (19-24) mmol/L ABG O2 Saturation 98.4 H (94-97) % ABG Hematocrit 24 L (34.0-46.0) % ABG Potassium 3.3 L (3.4-4.5) mmol/L ABG Ionized Calcium (4.5-5.3) mg/dL ABG Glucose 147 H (75-99) mg/dL ABG Lactic Acid 1.9 H (0.5-1.6) mmol/L Hemoglobin 7.9 L (13.0-17.5) gm/dL Sodium (137-145) mmol/L BUN (9-20) mg/dL Creatinine (0.66-1.25) mg/dL Glucose (74-99) mg/dL POC Glucose (mg/dL) 125 H (70-110) mg/dL Calcium (8.4-10.2) mg/dL AST (17-59) U/L Total Protein (6.3-8.2) g/dL Albumin (3.5-5.0) g/dL Arterial Blood Potassium 3.3 L (3.4-4.5) mmol/L Arterial Blood Glucose 147 H (75-99) mg/dL Crossmatch 03/29/22 03/29/22 03/29/22 Range/Units 13:59 13:59 14:00 WBC (3.8-10.6) k/uL RBC (4.30-5.90) m/uL Hgb (13.0-17.5) gm/dL Hct (39.0-53.0) % RDW (11.5-15.5) % Plt Count (150-450) k/uL Lymphocytes # (1.0-4.8) k/uL PT 13.5 H (9.0-12.0) sec INR 1.3 H (<1.2) APTT 34.9 H (22.0-30.0) sec ABG pH (7.35-7.45) ABG pCO2 (35-45) mmHg ABG pO2 (83-108) mmHg ABG HCO3 (21-25) mmol/L ABG Total CO2 (19-24) mmol/L ABG O2 Saturation (94-97) % ABG Hematocrit (34.0-46.0) % ABG Potassium (3.4-4.5) mmol/L ABG Ionized Calcium (4.5-5.3) mg/dL ABG Glucose (75-99) mg/dL ABG Lactic Acid (0.5-1.6) mmol/L Hemoglobin (13.0-17.5) gm/dL Sodium 136 L (137-145) mmol/L BUN 7 L (9-20) mg/dL Creatinine 0.55 L (0.66-1.25) mg/dL Glucose 120 H (74-99) mg/dL POC Glucose (mg/dL) 138 H (70-110) mg/dL Calcium 8.2 L (8.4-10.2) mg/dL AST 97 H (17-59) U/L Total Protein 4.3 L (6.3-8.2) g/dL Albumin 2.5 L (3.5-5.0) g/dL Arterial Blood Potassium (3.4-4.5) mmol/L Arterial Blood Glucose (75-99) mg/dL Crossmatch 03/29/22 03/29/22 03/29/22 Range/Units 14:21 15:13 16:00 WBC (3.8-10.6) k/uL RBC 2.84 L (4.30-5.90) m/uL Hgb 8.3 L (13.0-17.5) gm/dL Hct 24.8 L (39.0-53.0) % RDW 18.2 H (11.5-15.5) % Plt Count 96 L (150-450) k/uL Lymphocytes # 0.4 L (1.0-4.8) k/uL PT (9.0-12.0) sec INR (<1.2) APTT (22.0-30.0) sec ABG pH 7.47 H (7.35-7.45) ABG pCO2 (35-45) mmHg ABG pO2 133 H (83-108) mmHg ABG HCO3 27 H (21-25) mmol/L ABG Total CO2 28 H (19-24) mmol/L ABG O2 Saturation 99.0 H (94-97) % ABG Hematocrit (34.0-46.0) % ABG Potassium (3.4-4.5) mmol/L ABG Ionized Calcium (4.5-5.3) mg/dL ABG Glucose (75-99) mg/dL ABG Lactic Acid (0.5-1.6) mmol/L Hemoglobin (13.0-17.5) gm/dL Sodium (137-145) mmol/L BUN (9-20) mg/dL Creatinine (0.66-1.25) mg/dL Glucose (74-99) mg/dL POC Glucose (mg/dL) 167 H (70-110) mg/dL Calcium (8.4-10.2) mg/dL AST (17-59) U/L Total Protein (6.3-8.2) g/dL Albumin (3.5-5.0) g/dL Arterial Blood Potassium (3.4-4.5) mmol/L Arterial Blood Glucose (75-99) mg/dL Crossmatch 03/29/22 Range/Units 16:05 WBC (3.8-10.6) k/uL RBC (4.30-5.90) m/uL Hgb (13.0-17.5) gm/dL Hct (39.0-53.0) % RDW (11.5-15.5) % Plt Count (150-450) k/uL Lymphocytes # (1.0-4.8) k/uL PT (9.0-12.0) sec INR (<1.2) APTT (22.0-30.0) sec ABG pH (7.35-7.45) ABG pCO2 (35-45) mmHg ABG pO2 (83-108) mmHg ABG HCO3 (21-25) mmol/L ABG Total CO2 (19-24) mmol/L ABG O2 Saturation (94-97) % ABG Hematocrit (34.0-46.0) % ABG Potassium (3.4-4.5) mmol/L ABG Ionized Calcium (4.5-5.3) mg/dL ABG Glucose (75-99) mg/dL ABG Lactic Acid (0.5-1.6) mmol/L Hemoglobin (13.0-17.5) gm/dL Sodium (137-145) mmol/L BUN (9-20) mg/dL Creatinine (0.66-1.25) mg/dL Glucose (74-99) mg/dL POC Glucose (mg/dL) 183 H (70-110) mg/dL Calcium (8.4-10.2) mg/dL AST (17-59) U/L Total Protein (6.3-8.2) g/dL Albumin (3.5-5.0) g/dL Arterial Blood Potassium (3.4-4.5) mmol/L Arterial Blood Glucose (75-99) mg/dL Crossmatch
[2022-03-29 17:59] LABS: Glucose,Whole Blood 179 mg/dL (70-110)
[2022-03-29] MEDS: HEPARIN SODIUM,PORCINE/PF 5,000 UNIT/0.5 ML SYRINGE SQ SCH (18:04)
[2022-03-29] MEDS: ACETAMINOPHEN IV (For NPO) 1,000 MG in EMPTY BAG 1 BAG IVPB SCH (18:47)
[2022-03-29] MEDS ORDERED: MUPIROCIN 2% OINT 22 GM TUBE NASAL ONE (19:00)
[2022-03-29 19:16] LABS: Glucose,Whole Blood 159 mg/dL (70-110)
[2022-03-29] MEDS: ALBUMIN HUMAN 5% 250 ML in EMPTY BAG 1 BAG IVPB PRN ×2 (19:35→20:02)
[2022-03-29 19:47] LABS: Glucose,Whole Blood 143 mg/dL (70-110)
[2022-03-29 20:09] LABS: Anisocytosis Slight; Basophils % (A) 0 %; Eosinophils % (A) 0 %; HCT 24.9 % (39.0-53.0); HGB 8.3 gm/dL (13.0-17.5); Lymphocytes # (A) 0.3 k/uL (1.0-4.8); Lymphocytes % (A) 7 %; MCH 29.5 pg (25.0-35.0); MCHC 33.4 g/dL (31.0-37.0); MCV 88.2 fL (80.0-100.0); Mean Platelet Volume 9.2; Monocytes # (A) 0.3 k/uL (0-1.0); Monocytes % (A) 7 %; Neutrophils # (A) 4.2 k/uL (1.3-7.7); Neutrophils % (A) 85 %; Platelet Count 92 k/uL (150-450); RBC 2.82 m/uL (4.30-5.90); RDW 18.2 % (11.5-15.5); WBC 4.9 k/uL (3.8-10.6)
[2022-03-29 20:19] LABS: ABG Base Excess -0.1 mmol/L; ABG HCO3 25 mmol/L (21-25); ABG Oxygen Saturation 99.2 % (94-97); ABG PCO2 42 mmHg (35-45); ABG PH 7.39 (7.35-7.45); ABG PO2 137 mmHg (83-108); ABG TCO2 26 mmol/L (19-24); Allen Test Performed? Yes
[2022-03-29] MEDS: MUPIROCIN 2% OINT 22 GM TUBE NASAL SCH (20:51)
[2022-03-29 20:58] LABS: Glucose,Whole Blood 137 mg/dL (70-110)
--- NOTE | 2022-03-29 21:00 | OP ---
OPERATIVE REPORT DATE OF OPERATION: 03/29/2022 ATTENDING SURGEON: Dr. Paxton Spain. ASSISTANTS: 1. Dr. Jay Johnson. 2. Niels Kaplan NP. 3. KYM Batres. PREOPERATIVE DIAGNOSIS: 1. Severe aortic insufficiency. 2. Severe mitral regurgitation. 3. Patent foramen ovale. 4. Persistent atrial fibrillation. POSTOPERATIVE DIAGNOSIS: 1. Severe aortic insufficiency. 2. Severe mitral regurgitation. 3. Patent foramen ovale. 4. Persistent atrial fibrillation. PROCEDURE: 1. Aortic valve replacement with a #25 mm Medtronic Avalus bioprosthetic aortic valve. 2. Mitral valve repair with a #30 mm [employer] AnnuloFlex band. 3. Closure of patent foramen ovale. 4. Complete left-sided Maze using radiofrequency and Cryo energy sources. 5. Clip ligation of the left atrial appendage with a 35 mm AtriClip. 6. Intraoperative transesophageal echocardiogram. ANESTHESIA: General. BLOOD LOSS: 500 mL. SUMMARY: Patient was brought to the operating room, placed in supine position. Following administration of a general endotracheal anesthetic, placement of a [place]-Riki catheter arterial line, adequate IV access, Poe catheter, the patient was carefully prepped and draped in normal sterile fashion using chlorhexidine paint and sterile towels. A midline incision in the chest was made and sternum divided. Pericardium was opened. The heart size was mildly enlarged. The aorta was soft. The patient was heparinized with an ACT of greater than 480. The aorta and two single-stage venous cannulas were placed. Antegrade and retrograde cardioplegia catheters were positioned in the ascending aorta and the coronary sinus. The patient was placed on bypass, crossclamp was placed, heart arrested with one liter of antegrade followed by 500 mL retrograde cardioplegia. Retrograde cardioplegia was delivered 300 to 500 mL at the end of each 20- minute interval. First the right and left inferior and superior pulmonary veins were isolated and encircled, and using the AtriCure radiofrequency ablation clamp, three sets of ablation lines were created across the pulmonary veins bilaterally, encompassing a cuff of left atrial tissue. Next, the base of the left atrial appendage was measured. A 35 mm AtriClip was secured at the base, officially obliterating the left atrial appendage. Next the left atrium was entered at the junction of the right superior pulmonary vein. Handheld retractor was placed. First, three roof-connecting lesions between the right and left were performed using radiofrequency, and then the three floor lesions were created using the radiofrequency clamp. At this point, the cryoprobe was brought into the field and the connecting Cryo lesion between the right box lesion and the mitral anulus was created for 120 seconds and then externally epicardially a coronary sinus lesion was created using the cryoprobe for 120 seconds. At this point the mitral anulus was identified. The subvalvular apparatus was within normal limits. The anulus sized to a 30 mm [email or web address] AnnuloFlex band. Two-0 Tycron non-pledgeted sutures were placed from trigone to trigone along the posterior anulus and then passed through the 30 mm band. The band was seated, all sutures secured, tied and cut using the CorKnot ligature system device. It was tested with a handheld kaycee and tested well. The left atrium was then closed in a double-layered pledgeted 4-0 Prolene vertical mattress followed by an [id number] stitch from both sides. Please note: While the left atrium was opened, using a 5-0 Prolene running suture, the patent foramen ovale was closed from inside the left atrial cavity. At this point, a transverse aortotomy incision was made 2 cm distal to the takeoff of the right coronary artery. A handheld retractor was placed. The aortic valve was trileaflet and there were some calcifications present. The leaflets were excised, the anulus debrided, and it was irrigated out with cold saline. It sized to a 25 mm Medtronic Avalus bioprosthetic aortic valve. Two-0 Tycron pledgeted sutures were placed ventricularly based circumferentially. These were then passed through the sewing cuff of the valve, which was seated and seated well. All sutures were then secured, tied and cut using the CorKnot ligature system device. The aortotomy incision was then closed in a double- layered pledgeted 4-0 Prolene vertical mattress followed by an [id number] stitch from both sides. The patient was placed head down. Complete de-airing maneuvers were performed 3 times. One liter of warm blood retrograde cardioplegia was run. Crossclamp was then removed. The patient was reperfused for a period of time, and once beating in a normal sinus rhythm, the patient was ventilated and brought off bypass. He came off bypass uneventfully with good hemodynamics. Protamine was delivered, patient decannulated. Atrial ventricular pacing wires were placed. Mediastinal left and right pleural chest tubes were placed. At this point, the sternum was closed with four #6 sternal wires and two [id number] [place] sternal cable closure devices. Skin and subcutaneous tissue and fascia were closed in 3 layers. No complications. Patient tolerated the procedure well. Postoperative HARMEET showed just a small trace of mitral regurgitation. The aortic valve looks good with no perivalvular leak. The patient was transported to the cardiovascular intensive care unit in critical but stable condition. MMODL / IJN: [id number] /
[2022-03-29 21:57] LABS: Glucose,Whole Blood 138 mg/dL (70-110)
[2022-03-29 22:56] LABS: Glucose,Whole Blood 143 mg/dL (70-110)
[2022-03-29 23:56] LABS: Glucose,Whole Blood 130 mg/dL (70-110)
[2022-03-30] MEDS: HEPARIN SODIUM,PORCINE/PF 5,000 UNIT/0.5 ML SYRINGE SQ SCH ×4 (00:01→23:20)
[2022-03-30] MEDS: ACETAMINOPHEN IV (For NPO) 1,000 MG in EMPTY BAG 1 BAG IVPB SCH (00:06)
[2022-03-30] MEDS ORDERED: HYDROcodone/APAP 5-325MG 1 EACH TAB PO PRN ×2 (00:31)
[2022-03-30 01:10] LABS: Glucose,Whole Blood 123 mg/dL (70-110)
[2022-03-30 02:13] LABS: Glucose,Whole Blood 123 mg/dL (70-110)
[2022-03-30 03:07] LABS: Glucose,Whole Blood 123 mg/dL (70-110)
[2022-03-30 03:55] LABS: Glucose,Whole Blood 116 mg/dL (70-110)
[2022-03-30 04:19] LABS: Anisocytosis Slight; Basophils % (A) 0 %; Eosinophils % (A) 0 %; HCT 22.9 % (39.0-53.0); HGB 7.6 gm/dL (13.0-17.5); Lymphocytes # (A) 0.4 k/uL (1.0-4.8); Lymphocytes % (A) 7 %; MCH 29.2 pg (25.0-35.0); MCHC 33.3 g/dL (31.0-37.0); MCV 87.7 fL (80.0-100.0); Mean Platelet Volume 9.8; Microcytosis Slight; Monocytes # (A) 0.4 k/uL (0-1.0); Monocytes % (A) 8 %; Neutrophils # (A) 4.5 k/uL (1.3-7.7); Neutrophils % (A) 84 %; RBC 2.61 m/uL (4.30-5.90); RDW 18.2 % (11.5-15.5); WBC 5.3 k/uL (3.8-10.6)
[2022-03-30] MEDS: AMIODARONE 450 MG in DEXTROSE 5% IN WATER 250 ML IV SCH ×2 (04:22)
[2022-03-30] MEDS: HYDROcodone/APAP 10-325MG 1 EACH TAB PO PRN ×6 (04:27→23:08)
[2022-03-30 04:30] LABS: Platelet Count 85 k/uL (150-450)
[2022-03-30 04:33] LABS: Ionized Calcium 4.8 mg/dL (4.5-5.3)
[2022-03-30 05:02] LABS: ALT 17 U/L (4-49); AST 106 U/L (17-59); African American GFR (CKD) >90 (>60 ml/min/1.73 sqM); Albumin 2.9 g/dL (3.5-5.0); Alkaline Phosphatase 41 U/L (38-126); Anion Gap 3 mmol/L; Blood Urea Nitrogen 11 mg/dL (9-20); Calcium 8.1 mg/dL (8.4-10.2); Carbon Dioxide 29 mmol/L (22-30); Chloride 103 mmol/L (98-107); Glucose 103 mg/dL (74-99); Non-African American GFR(CKD) >90 (>60 ml/min/1.73 sqM); Sodium 135 mmol/L (137-145); Total Bilirubin 0.3 mg/dL (0.2-1.3); Total Protein 4.7 g/dL (6.3-8.2)
[2022-03-30 05:04] LABS: Glucose,Whole Blood 116 mg/dL (70-110)
[2022-03-30] MEDS: ALBUMIN HUMAN 5% 250 ML in EMPTY BAG 1 BAG IVPB PRN ×5 (05:07→15:49)
[2022-03-30] MEDS: fentaNYL (PF) 50 MCG/ML 2 ML AMP IVP PRN ×4 (05:36→19:55)
[2022-03-30 05:59] LABS: Glucose,Whole Blood 115 mg/dL (70-110)
[2022-03-30] MEDS: LORazepam 0.5 MG TAB PO SCH ×3 (06:51→22:47)
[2022-03-30 06:56] LABS: Glucose,Whole Blood 118 mg/dL (70-110)
[2022-03-30] MEDS: IPRATROPIUM-ALBUTEROL 3 ML NEB INHALATION SCH ×4 (08:18→21:10)
[2022-03-30 08:58] LABS: Glucose,Whole Blood 113 mg/dL (70-110)
[2022-03-30] MEDS ORDERED: NALOXONE HCL SUBLINGUAL SCH ×2 (09:00)
[2022-03-30] MEDS ORDERED: BUPRENORPHINE HCL SUBLINGUAL SCH ×2 (09:00)
[2022-03-30] MEDS ORDERED: MAGNESIUM HYDROXIDE 2,400 MG/10 ML CUP PO PRN (09:00)
[2022-03-30] MEDS ORDERED: NON FORMULARY DRUG (Buprenorphine Hcl/Naloxone Hcl [Suboxone 8 Mg-2 Mg Sl Film] 1 EACH Fil SUBLINGUAL SCH (09:00)
[2022-03-30] MEDS ORDERED: bisacodyL 10 MG SUPP RECTAL PRN (09:00)
[2022-03-30] MEDS ORDERED: PANTOPRAZOLE 40 MG/10 ML VIAL IVP SCH (09:00)
[2022-03-30 09:07] LABS: Glucose,Whole Blood 113 mg/dL (70-110)
[2022-03-30] MEDS: ESCITALOPRAM 20 MG TAB PO SCH (10:00)
[2022-03-30] MEDS: METOPROLOL TARTRATE 12.5 MG TAB PO SCH ×2 (10:01→20:23)
[2022-03-30] MEDS: METOCLOPRAMIDE 5 MG/ML 2 ML VIAL IVP PRN (10:01)
[2022-03-30] MEDS: ASPIRIN 325 MG TAB PO SCH (10:02)
[2022-03-30] MEDS: ATORVASTATIN 20 MG TAB PO SCH (10:02)
[2022-03-30 10:19] LABS: Glucose,Whole Blood 137 mg/dL (70-110)
[2022-03-30] MEDS: MUPIROCIN 2% OINT 22 GM TUBE NASAL SCH ×2 (10:21→20:23)
--- NOTE | 2022-03-30 10:48 | P.CRDCN ---
History of Present Illness Consult date: 03/30/22 History of present illness: Patient is postop day #1 for a aortic valve replacement with [employer] Avalus valve, mitral valve repair, and closure of patent foramen ovale. She has a known history of severe aortic insufficiency, severe mitral regurgitation, patent foramen ovale, and persistent atrial fibrillation, hypertension hyperlipidemia, previous tobacco dependence, opioid dependence on Suboxone outpatient, and preoperative myeloproliferative disorder with chronic leukopenia, anemia, and thrombocytopenia . Patient follows with Dr. Hampton office. Chest x-ray showed postsurgical changes with no feasible pneumothorax. Correlated for mild venous congestion wi th bilateral infiltrates or atelectasis and small pleural effusion. He did have an episode of atrial fibrillation patient was started on amiodarone drip. He is seen today in the ICU extubated sitting comfortably in the chair. He denies increased shortness of breath or chest pain. He does report some sternal surgical pain. Amiodarone drip can tenuous, he is also on an insulin drip. 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 Patient is on aspirin atorvastatin metoprolol. Plan is to remove [place] catheter today. Review of Systems REVIEW OF SYSTEMS At the time of my exam: CONSTITUTIONAL: Denies fever or chills. EYES: Negative for vision changes ENT: Negative for hearing loss CARDIOVASCULAR: Denies chest pain, shortness of breath, diaphoresis, orthopnea, PND or palpitations. Sternal surgical pain VASCULAR: Denies edema RESPIRATORY: Denies cough. GASTROINTESTINAL: Denies abdominal pain, diarrhea, constipation, nausea or vomiting. MUSCULOSKELETAL: Denies myalgias. NEUROLOGIC: Denies numbness, tingling, headache or weakness. ENDOCRINE: Denies fatigue, weight change, polydipsia or polyurina. GENITOURINARY: Denies burning, hematuria or urgency with micturation. HEMATOLOGIC: Denies history of anemia or bleeding. DERMATOLOGY: Denies rash or skin sores PSYCH: Negative for depression or hallucinations. Past Medical History Past Medical History: Atrial Fibrillation, Hypertension, Pneumonia Additional Past Medical History / Comment(s): Chronic back pain., pneumonia several years ago, recent dx. of low iron, had 3 iron infusions, SOB w/exertion History of Any Multi-Drug Resistant Organisms: None Reported Past Surgical History: Appendectomy, Cholecystectomy, Heart Catheterization, Orthopedic Surgery Additional Past Surgical History / Comment(s): Right bicep tendon repair. Past Anesthesia/Blood Transfusion Reactions: No Reported Reaction Smoking Status: Former smoker - Past Family History Mother Family Medical History: No Reported History Medications and Allergies Home Medications Medication Instructions Recorded Confirmed Type Apixaban [Eliquis] 5 mg PO BID 06/25/17 03/29/22 History Buprenorphine HCl/Naloxone HCl 0.5 each SL QAM 03/12/21 03/29/22 History [Suboxone 8 mg-2 mg Sl Film] Buprenorphine HCl/Naloxone HCl 1 each SL 1600 03/12/21 03/29/22 History [Suboxone 8 mg-2 mg Sl Film] Digoxin [Lanoxin] 125 mcg PO QAM 03/12/21 03/29/22 History Escitalopram Oxalate [Lexapro] 20 mg PO QAM 03/12/21 03/29/22 History LORazepam [Ativan] 0.5 mg PO BID 03/12/21 03/29/22 History Metoprolol Tartrate [Lopressor] 100 mg PO QAM 12/16/21 03/29/22 History Rosuvastatin [Crestor] 10 mg PO DAILY 12/16/21 03/29/22 History Metoprolol Tartrate [Lopressor] 50 mg PO HS 03/23/22 03/29/22 History Mupirocin [Mupirocin 2%] 1 applic NASAL BID #1 tub 03/25/22 03/29/22 Rx Allergies Allergy/AdvReac Type Severity Reaction Status Date / Time No Known Allergies Allergy Verified 03/29/22 06:33 Physical Exam Vitals: Vital Signs Temp Pulse Resp BP Pulse Ox FiO2 03/30/22 07:00 80 17 99 03/30/22 06:30 78 22 98 03/30/22 06:00 80 31 H 92 L 03/30/22 05:30 80 26 H 98 03/30/22 05:00 80 20 91/56 98 03/30/22 04:30 80 12 97 03/30/22 04:00 99.3 F 80 11 L 96 03/30/22 03:30 80 13 96 03/30/22 03:00 80 10 L 95 03/30/22 02:30 80 18 95 03/30/22 02:00 80 11 L 95 03/30/22 01:30 80 13 95 03/30/22 01:15 80 11 L 95 03/30/22 01:00 80 11 L 97 03/30/22 00:45 80 14 82/59 97 03/30/22 00:30 80 20 94 L 03/30/22 00:15 80 25 H 94 L 03/30/22 00:00 99.3 F 79 17 96 03/29/22 23:45 79 12 98 03/29/22 23:30 77 12 95 03/29/22 23:15 80 14 96 03/29/22 23:00 79 14 97 03/29/22 22:45 80 13 96 03/29/22 22:30 80 13 94 L 03/29/22 22:15 81 14 95 03/29/22 22:00 80 14 96 03/29/22 21:45 80 13 95 03/29/22 21:30 80 12 96 03/29/22 21:15 79 15 95 03/29/22 21:00 79 13 99 03/29/22 20:45 68 17 97 03/29/22 20:37 100 03/29/22 20:30 80 14 100 50 03/29/22 20:28 80 03/29/22 20:22 81 03/29/22 20:15 62 14 99 50 03/29/22 20:00 99.3 F 62 14 78/51 99 50 03/29/22 19:45 62 25 H 100 50 03/29/22 19:39 50 03/29/22 19:30 60 14 100 50 03/29/22 19:15 64 21 100 50 03/29/22 19:00 65 22 100 03/29/22 18:45 66 22 100 03/29/22 18:30 65 24 100 03/29/22 18:15 67 26 H 100 03/29/22 18:00 66 22 100 03/29/22 17:45 66 31 H 100 03/29/22 17:30 66 25 H 100 03/29/22 17:15 63 23 100 03/29/22 17:00 62 20 92 L 03/29/22 16:45 64 22 95 03/29/22 16:30 72 16 98 03/29/22 16:15 64 23 92 L 03/29/22 16:00 97.5 F L 62 14 100 50 03/29/22 15:45 61 17 100 0726/22 15:30 61 11 L 100 03/29/22 15:15 61 12 92 L 03/29/22 15:12 67 03/29/22 15:01 50 03/29/22 15:00 61 12 125/79 99 03/29/22 14:45 61 21 100 03/29/22 14:40 50 03/29/22 14:35 50 03/29/22 14:30 61 21 100 03/29/22 14:15 61 20 100 03/29/22 14:00 61 20 99 03/29/22 13:50 60 Intake and Output 03/29/22 03/30/22 03/30/22 22:59 06:59 14:59 Intake Total 886.893 778.432 257.905 Output Total 833 350 86 Balance 53.893 428.432 171.905 Intake: IV 761 553 238 CO/CI 130 90 20 Lactated Ringers 1,000 ml 450 400 100 @ 50 mls/hr IV .Q20H [facility] [place] Rx#:[id number] Potassium Chloride 20 meq 100 In Water For Injection 1 100ml.bag @ 50 mls/hr IVPB ONCE STA Rx#: [id number] Pressure 81 63 18 ceFAZolin 2 gm In Sodium 100 Chloride 0.9% 50 ml @ 100 mls/hr IVPB Q8HR [facility] [place] Rx# :[id number] Intake, IV Titration 125.893 225.432 19.905 Amount Amiodarone 450 mg In 216.393 Dextrose 5% in Water 250 ml @ 0.5 MG/MIN 16.667 mls/hr IV .Q15H [facility] [place] Rx#: [id number] Dexmedetomidine/0.9% NaCl 70.559 (Pmx) 400 mcg In Empty Bag 1 bag @ Titrate IV . Q0M [facility] Rx#:[id number] Insulin Regular 100 unit 25.570 9.039 19.905 In Sodium Chloride 0.9% 100 ml @ Per Protocol IV .Q0M [facility] [place] Rx#:[id number] propofoL 1,000 mg In 29.764 Empty Bag 1 bag @ Titrate IV .Q0M [facility] Rx#: [id number] Output: Chest Tube Drainage 448 90 11 LP/RP 243 40 11 MS 205 50 0 Urine 385 260 75 Other: Voiding Method Indwelling Catheter Indwelling Catheter Weight 71.1 kg ABP, PAP, CO, CI - Last 8 Hours Arterial Blood Pressure 123/56 Arterial Blood Pressure 114/56 Arterial Blood Pressure 106/52 Arterial Blood Pressure 110/56 Arterial Blood Pressure 101/49 Arterial Blood Pressure 96/51 Arterial Blood Pressure 103/53 Arterial Blood Pressure 99/53 Arterial Blood Pressure 99/52 Arterial Blood Pressure 99/51 Pulmonary Artery Pressure 27/10 Pulmonary Artery Pressure 29/13 Pulmonary Artery Pressure 34/13 Pulmonary Artery Pressure 27/15 Pulmonary Artery Pressure 27/11 Pulmonary Artery Pressure 30/17 Pulmonary Artery Pressure 27/16 Pulmonary Artery Pressure 27/17 Pulmonary Artery Pressure 28/17 Pulmonary Artery Pressure 27/17 Cardiac Output 5.6 Cardiac Output 4.8 Cardiac Output 4.4 Cardiac Index 3.0 Cardiac Index 2.6 Cardiac Index 2.3 PHYSICAL EXAMINATION General: The patient is awake and alert, in no distress, and does not appear acutely ill. Skin: Skin is warm and dry and no rashes or lesions are noted. Eye: Pupils are equal, round and reactive to light, extra-ocular movements are intact; there is normal conjunctiva bilaterally. Ears, nose, mouth and throat: There are moist mucous membranes and no oral lesions. Neck: The neck is supple, there is no tenderness or JVD. Cardiovascular: A paced. No murmur, rub or gallop is appreciated. Respiratory: Lungs are clear to auscultation, respirations are non-labored, breath sounds are equal. Gastrointestinal: Soft, non-distended, non-tender abdomen without masses or organomegaly noted. There is no rebound or guarding present. Bowel sounds are unremarkable. Back: There is no tenderness to palpation in the midline. There is no obvious deformity. Musculoskeletal: Normal ROM, no tenderness, There is no pedal edema. There is no calf tenderness or swelling. Extremities: Mild bilateral pitting edema Vascular: Femoral pulse is normal. Posterior tibial pulses are normal .Dorsalis pedis is palpable. Neurological: CN II-XII intact. There are no obvious motor or sensory deficits. Speech is normal. Psychiatric: Cooperative, appropriate mood & affect, normal judgment Results 03/31/22 05:18 03/31/22 04:25 Cardiac Enzymes 03/29/22 03/30/22 Range/Units 13:59 03:50 AST 97 H 106 H (17-59) U/L Coagulation 03/29/22 Range/Units 13:59 PT 13.5 H (9.0-12.0) sec APTT 34.9 H (22.0-30.0) sec CBC 03/29/22 03/29/22 03/29/22 Range/Units 13:59 16:00 20:03 WBC 3.7 L 5.1 4.9 (3.8-10.6) k/uL RBC 2.64 L 2.84 L 2.82 L (4.30-5.90) m/uL Hgb 7.7 L 8.3 L 8.3 L (13.0-17.5) gm/dL Hct 23.0 L 24.8 L 24.9 L (39.0-53.0) % Plt Count 80 L 96 L 92 L (150-450) k/uL 03/30/22 Range/Units 03:50 WBC 5.3 (3.8-10.6) k/uL RBC 2.61 L (4.30-5.90) m/uL Hgb 7.6 L (13.0-17.5) gm/dL Hct 22.9 L (39.0-53.0) % Plt Count 85 L (150-450) k/uL Comprehensive Metabolic Panel 03/29/22 03/30/22 Range/Units 13:59 03:50 Sodium 136 L 135 L (137-145) mmol/L Potassium 3.7 4.0 (3.5-5.1) mmol/L Chloride 107 103 (98-107) mmol/L Carbon Dioxide 27 29 (22-30) mmol/L BUN 7 L 11 (9-20) mg/dL Creatinine 0.55 L 0.56 L (0.66-1.25) mg/dL Glucose 120 H 103 H (74-99) mg/dL Calcium 8.2 L 8.1 L (8.4-10.2) mg/dL AST 97 H 106 H (17-59) U/L ALT 16 17 (4-49) U/L Alkaline Phosphatase 41 41 (38-126) U/L Total Protein 4.3 L 4.7 L (6.3-8.2) g/dL Albumin 2.5 L 2.9 L (3.5-5.0) g/dL Current Medications Generic Name Dose Route Start Last Admin Trade Name Freq PRN Reason Stop Dose Admin Hydrocodone Bitart/Acetaminophen 1 each 03/30/22 00:31 Hydrocodone/Apap 10-325mg 1 Each Tab PO Q4HR PRN Pain Hydrocodone Bitart/Acetaminophen 2 each 03/30/22 00:31 03/30/22 08:38 Hydrocodone/Apap 10-325mg 1 Each Tab PO 2 each Q4HR PRN Administration Pain Albuterol/Ipratropium 3 ml 03/29/22 13:39 Ipratropium-Albuterol 3 Ml Neb INHALATION RT-Q2H PRN Shortness Of Breath Or Wheezing Albuterol/Ipratropium 3 ml 03/30/22 08:00 03/30/22 08:18 Ipratropium-Albuterol 3 Ml Neb INHALATION Not Given RT-QID [facility] Aspirin 325 mg 03/30/22 09:00 03/30/22 10:02 Aspirin 325 Mg Tab PO 325 mg DAILY [facility] Administration Atorvastatin Calcium 20 mg 03/30/22 09:00 03/30/22 10:02 Atorvastatin 20 Mg Tab PO 20 mg DAILY [facility] Administration Benzocaine/Menthol 1 each 03/29/22 13:39 Benzocaine/Menthol Lozeng 1 Each Lozenge MUCOUS MEM Q2H PRN Sore Throat Bisacodyl 10 mg 03/30/22 09:00 Bisacodyl 10 Mg Supp RECTAL DAILY PRN Constipation Escitalopram Oxalate 20 mg 03/30/22 09:00 03/30/22 10:00 Escitalopram 20 Mg Tab PO 20 mg QAM [facility] Administration Fentanyl Citrate 50 mcg 03/29/22 15:41 03/30/22 10:03 Fentanyl (Pf) 50 Mcg/Ml 2 Ml Amp IVP 50 mcg Q4HR PRN Administration Severe Pain Heparin Sodium (Porcine) 5,000 unit 03/29/22 16:00 03/30/22 10:00 Heparin Sodium,Porcine/Pf 5,000 Unit/0.5 Ml Syringe SQ Not Given Q8HR [facility] Hydralazine HCl 10 mg 03/29/22 13:39 Hydralazine Hcl 20 Mg/Ml 1 Ml Vial IVP Q1H PRN Blood Pressure - High Clevidipine 25 mg/ IV Solution 50 mls @ 2 mls/hr 03/29/22 13:39 03/29/22 17:13 IV Not Given .Q24H [facility] Protocol 1 MG/HR Amiodarone HCl 150 mg/ 103 mls @ 618 mls/hr 03/29/22 13:39 Dextrose/Water IV .Q10M PRN A.FIB/FLUTTER Albumin Human 250 ml/ IV 250 mls @ 250 mls/hr 03/29/22 13:39 03/30/22 05:07 Solution IVPB 03/31/22 13:40 250 mls/hr Q1HR PRN Administration For Volume Protocol Lactated Ringer's 1,000 mls @ 50 mls/hr 03/29/22 13:39 03/29/22 14:08 Lactated Ringers IV 50 mls/hr .Q20H [facility] Administration Calcium Gluconate/Sodium 100 mls @ 100 mls/hr 03/29/22 13:39 Chloride 2 gm/ IV Solution IVPB 03/30/22 23:00 ONCE PRN Ionized Calcium less than 4.4 Insulin Human Regular 100 unit 101 mls @ 0 mls/hr 03/29/22 14:00 03/30/22 09:06 / Sodium Chloride IV 0 units/hr .Q0M [facility] 0 mls/hr Titration Protocol Per Protocol Lorazepam 0.5 mg 03/29/22 21:00 03/30/22 06:51 Lorazepam 0.5 Mg Tab PO 0.5 mg BID [facility] Administration Magnesium Hydroxide 2,400 mg 03/30/22 09:00 Magnesium Hydroxide 2,400 Mg/10 Ml Cup PO BID PRN Constipation Metoclopramide HCl 10 mg 03/29/22 13:39 03/30/22 10:01 Metoclopramide 5 Mg/Ml 2 Ml Vial IVP 10 mg Q4H PRN Administration Nausea And Vomiting Metoprolol Tartrate 12.5 mg 03/30/22 09:00 03/30/22 10:01 Metoprolol Tartrate 12.5 Mg Tab PO 12.5 mg BID [facility] Administration Miscellaneous Information 1 each 03/29/22 13:39 Magnesium Replacement Protocol 1 Each Misc MISCELLANE DAILY PRN Per Protocol Protocol Miscellaneous Information 1 each 03/29/22 13:39 Potassium Replacement Protocol 1 Each Misc MISCELLANE DAILY PRN Per Protocol Protocol Mupirocin 1 applic 03/29/22 21:00 03/29/22 20:51 Mupirocin 2% Oint 22 Gm Tube NASAL 1 applic BID [facility] Administration Non-Formulary Medication 1 each 03/30/22 09:00 03/30/22 10:03 Buprenorphine Hcl/Naloxone Hcl [Suboxone 8 Mg-2 Mg Sl Film] SUBLINGUAL 1 each QAM [facility] Administration Non-Formulary Medication 0.5 each 03/29/22 17:00 03/29/22 16:49 Buprenorphine Hcl/Naloxone Hcl [Suboxone 8 Mg-2 Mg Sl Film] SUBLINGUAL 0.5 each 1600 [facility] Administration Ondansetron HCl 4 mg 03/29/22 13:39 Ondansetron 4 Mg/2 Ml Vial IVP Q6HR PRN Nausea And Vomiting Pantoprazole Sodium 40 mg 03/30/22 09:00 03/30/22 10:00 Pantoprazole 40 Mg/10 Ml Vial IVP 40 mg DAILY [facility] Administration Senna/Docusate Sodium 2 each 03/30/22 21:00 Sennosides-Docusate Sodium 1 Each Tab PO HS [facility] Sodium Chloride 10 ml 03/29/22 21:00 03/29/22 20:51 Sodium Chloride 0.9% Flush 10 Ml Syringe IV 10 ml BID [facility] Administration Intake and Output 03/29/22 03/30/22 03/30/22 22:59 06:59 14:59 Intake Total 886.893 778.432 257.905 Output Total 833 350 86 Balance 53.893 428.432 171.905 Intake: IV 761 553 238 CO/CI 130 90 20 Lactated Ringers 1,000 ml 450 400 100 @ 50 mls/hr IV .Q20H [facility] Rx#:[id number] Potassium Chloride 20 meq 100 In Water For Injection 1 100ml.bag @ 50 mls/hr IVPB ONCE [facility] Rx#: [id number] Pressure 81 63 18 ceFAZolin 2 gm In Sodium 100 Chloride 0.9% 50 ml @ 100 mls/hr IVPB Q8HR [facility] Rx# :[id number] Intake, IV Titration 125.893 225.432 19.905 Amount Amiodarone 450 mg In 216.393 Dextrose 5% in Water 250 ml @ 0.5 MG/MIN 16.667 mls/hr IV .Q15H [facility] Rx#: [id number] Dexmedetomidine/0.9% NaCl 70.559 (Pmx) 400 mcg In Empty Bag 1 bag @ Titrate IV . Q0M [facility] Rx#:[id number] Insulin Regular 100 unit 25.570 9.039 19.905 In Sodium Chloride 0.9% 100 ml @ Per Protocol IV .Q0M [facility] Rx#:[id number] propofoL 1,000 mg In 29.764 Empty Bag 1 bag @ Titrate IV .Q0M [facility] Rx#: [id number] Output: Chest Tube Drainage 448 90 11 LP/RP 243 40 11 MS 205 50 0 Urine 385 260 75 Other: Voiding Method Indwelling Catheter Indwelling Catheter Weight 71.1 kg 03/30/22 03:50 03/30/22 03:50 Assessment and Plan Assessment: Severe aortic insufficiency status post aortic valve replacement Severe mitral regurgitation status post atrial valve repair PFO status post closure device Persistent atrial fibrillation Hypertension. Plan: Continue with all current cardiac medications Continue with telemetry monitoring Tenuous strict I's and O's and daily weights Continue to increase activity as tolerated Further recommendations based on clinical course The above impression and plan of care have been discussed and directed by the signing physician. Vicky Busch, nurse practitioner, acting as scribe for signing physician.
[2022-03-30 10:55] LABS: Glucose,Whole Blood 132 mg/dL (70-110)
[2022-03-30] MEDS: AMIODARONE 200 MG TAB PO SCH ×2 (11:51→20:23)
[2022-03-30 12:01] LABS: Glucose,Whole Blood 125 mg/dL (70-110)
[2022-03-30] MEDS: LACTATED RINGERS 1,000 ML IV SCH (12:03)
[2022-03-30] MEDS: CLEVIDIPINE BUTYRATE 25 MG in EMPTY BAG 1 BAG IV SCH (12:05)
--- NOTE | 2022-03-30 12:07 | P.PN ---
Subjective Progress Note Date: 03/30/22 Pt is s/p extubation and doing well on 2L NC. Only complaint is severe postop pain at incision site. Has been getting home suboxone and additional doses of fentanyl and norco. Denies hx of ETOH abuse. Gen: in no apparent distress, resting comfortably in bed Eyes: PERRL, no scleral injection or icterus HENT: normocephalic, atraumatic, good hearing acuity, moist mucous membranes Neck: no tracheal deviation, full range of motion Resp: Good air exchange, no accessory muscle use CVS: good distal perfusion x 4, no pitting edema GI: soft, NTTP, ND, no hepatosplenomegaly : no suprapubic tenderness, no CVAT, cain catheter is present MSK: no clubbing, no cyanosis, no noted contractures of extremities Skin: no noted rashes, petechiae; temperature of skin is appropriate Neuro: moving all extremities without signs of weakness, CN II-XII intact Lines: Cain catheter, right [place], 2 pleural drains, one mediastinal drain, arterial line Assessment/plan: Anemia Thrombocytopenia Elevated AST -Daily CBC -improving with transfusions 2U PRBC, 1U FFP Opiate dependence with Acute Post-operative Pain -Hold suboxone until pain better controlled -norco PRN, fentanyl PRN Paroxysmal atrial fibrillation Hypertension Hyperlipidemia History of aortic insufficiency History of mitral regurgitation Status post aortic valve replacement Status post PFO closure Status post mitral valve repair -Care per primary team Patient is full code Objective - Vital Signs Vital signs: Vital Signs Temp 99.3 F 03/30/22 04:00 Pulse 68 03/30/22 11:30 Resp 12 03/30/22 11:30 BP 102/66 03/30/22 10:00 Pulse Ox 99 03/30/22 11:30 FiO2 50 03/29/22 20:30 Intake & Output 03/29/22 03/30/22 03/30/22 18:59 06:59 18:59 Intake Total 6942.076 8668.010 366.903 Output Total 3700 625 146 Balance -2290.685 544.010 220.903 Weight 71.1 kg Intake: IV 547 898 343 CO/CI 100 140 20 Lactated Ringers 1,000 ml 250 650 190 @ 50 mls/hr IV .Q20H [facility] Rx#:[id number] Potassium Chloride 20 meq 100 In Water For Injection 1 100ml.bag @ 50 mls/hr IVPB ONCE [facility]A Rx#: [id number] Pressure 45 108 33 ceFAZolin 2 gm In Sodium 100 Chloride 0.9% 50 ml @ 100 mls/hr IVPB Q8HR [facility] Rx# :[id number] Intake, IV Titration 80.315 271.010 23.903 Amount Amiodarone 450 mg In 216.393 Dextrose 5% in Water 250 ml @ 0.5 MG/MIN 16.667 mls/hr IV .Q15H [facility] Rx#: [id number] Dexmedetomidine/0.9% NaCl 41.898 28.661 (Pmx) 400 mcg In Empty Bag 1 bag @ Titrate IV . Q0M [facility] Rx#:[id number] Insulin Regular 100 unit 8.653 25.956 23.903 In Sodium Chloride 0.9% 100 ml @ Per Protocol IV .Q0M [facility] Rx#:[id number] propofoL 1,000 mg In 29.764 Empty Bag 1 bag @ Titrate IV .Q0M [facility] Rx#: [id number] Blood Product 782 Ffp 24 Pher Acda Unit 215 [id number] Ffp 24 Pher Acda Cnt1 224 Unit [id number] Platelet Pheresis Pas 343 Psoralen Unit [id number] Output: Chest Tube Drainage 570 200 11 LP/RP 320 110 11 MS 250 90 0 Urine 1130 425 135 Estimated Blood Loss 1999 Other: Voiding Method Indwelling Catheter Indwelling Catheter Indwelling Catheter ABP, PAP, CO, CI - Last Documented Arterial Blood Pressure 105/50 Pulmonary Artery Pressure 32/9 Cardiac Output 5.1 Cardiac Index 2.7 - Labs CBC & Chem 7: 03/30/22 03:50 03/30/22 03:50 Labs: Abnormal Lab Results - Last 24 Hours (Table) 03/23/22 03/29/22 03/29/22 Range/Units 11:30 08:34 09:06 WBC (3.8-10.6) k/uL RBC (4.30-5.90) m/uL Hgb (13.0-17.5) gm/dL Hct (39.0-53.0) % RDW (11.5-15.5) % Plt Count (150-450) k/uL Lymphocytes # (1.0-4.8) k/uL PT (9.0-12.0) sec INR (<1.2) APTT (22.0-30.0) sec ABG pH 7.48 H 7.46 H (7.35-7.45) ABG pCO2 (35-45) mmHg ABG pO2 199 H 145 H (83-108) mmHg ABG HCO3 31 H 31 H (21-25) mmol/L ABG Total CO2 33 H 33 H (19-24) mmol/L ABG O2 Saturation 99.6 H 99.2 H (94-97) % ABG Hematocrit 32 L 31 L (34.0-46.0) % ABG Potassium (3.4-4.5) mmol/L ABG Ionized Calcium (4.5-5.3) mg/dL ABG Glucose 109 H (75-99) mg/dL ABG Lactic Acid 0.4 L (0.5-1.6) mmol/L Hemoglobin 10.4 L 10.2 L (13.0-17.5) gm/dL Sodium (137-145) mmol/L BUN (9-20) mg/dL Creatinine (0.66-1.25) mg/dL Glucose (74-99) mg/dL POC Glucose (mg/dL) (70-110) mg/dL Calcium (8.4-10.2) mg/dL AST (17-59) U/L Total Protein (6.3-8.2) g/dL Albumin (3.5-5.0) g/dL Arterial Blood Potassium (3.4-4.5) mmol/L Arterial Blood Glucose 109 H (75-99) mg/dL Crossmatch See Detail 03/29/22 03/29/22 03/29/22 Range/Units 10:26 10:58 11:30 WBC (3.8-10.6) k/uL RBC (4.30-5.90) m/uL Hgb (13.0-17.5) gm/dL Hct (39.0-53.0) % RDW (11.5-15.5) % Plt Count (150-450) k/uL Lymphocytes # (1.0-4.8) k/uL PT (9.0-12.0) sec INR (<1.2) APTT (22.0-30.0) sec ABG pH 7.50 H 7.52 H (7.35-7.45) ABG pCO2 50 H (35-45) mmHg ABG pO2 313 H 325 H 294 H (83-108) mmHg ABG HCO3 29 H 31 H 30 H (21-25) mmol/L ABG Total CO2 30 H 32 H 31 H (19-24) mmol/L ABG O2 Saturation 100.0 H 100.0 H 100.0 H (94-97) % ABG Hematocrit 25 L 24 L 24 L (34.0-46.0) % ABG Potassium (3.4-4.5) mmol/L ABG Ionized Calcium 4.0 L 4.3 L 4.2 L (4.5-5.3) mg/dL ABG Glucose 143 H 134 H 150 H (75-99) mg/dL ABG Lactic Acid (0.5-1.6) mmol/L Hemoglobin 8.1 L 7.9 L 7.7 L (13.0-17.5) gm/dL Sodium (137-145) mmol/L BUN (9-20) mg/dL Creatinine (0.66-1.25) mg/dL Glucose (74-99) mg/dL POC Glucose (mg/dL) (70-110) mg/dL Calcium (8.4-10.2) mg/dL AST (17-59) U/L Total Protein (6.3-8.2) g/dL Albumin (3.5-5.0) g/dL Arterial Blood Potassium (3.4-4.5) mmol/L Arterial Blood Glucose 143 H 134 H 150 H (75-99) mg/dL Crossmatch 03/29/22 03/29/22 03/29/22 Range/Units 12:44 13:51 13:59 WBC 3.7 L (3.8-10.6) k/uL RBC 2.64 L (4.30-5.90) m/uL Hgb 7.7 L (13.0-17.5) gm/dL Hct 23.0 L (39.0-53.0) % RDW 18.2 H (11.5-15.5) % Plt Count 80 L (150-450) k/uL Lymphocytes # 0.6 L (1.0-4.8) k/uL PT (9.0-12.0) sec INR (<1.2) APTT (22.0-30.0) sec ABG pH (7.35-7.45) ABG pCO2 (35-45) mmHg ABG pO2 110 H (83-108) mmHg ABG HCO3 28 H (21-25) mmol/L ABG Total CO2 30 H (19-24) mmol/L ABG O2 Saturation 98.4 H (94-97) % ABG Hematocrit 24 L (34.0-46.0) % ABG Potassium 3.3 L (3.4-4.5) mmol/L ABG Ionized Calcium (4.5-5.3) mg/dL ABG Glucose 147 H (75-99) mg/dL ABG Lactic Acid 1.9 H (0.5-1.6) mmol/L Hemoglobin 7.9 L (13.0-17.5) gm/dL Sodium (137-145) mmol/L BUN (9-20) mg/dL Creatinine (0.66-1.25) mg/dL Glucose (74-99) mg/dL POC Glucose (mg/dL) 125 H (70-110) mg/dL Calcium (8.4-10.2) mg/dL AST (17-59) U/L Total Protein (6.3-8.2) g/dL Albumin (3.5-5.0) g/dL Arterial Blood Potassium 3.3 L (3.4-4.5) mmol/L Arterial Blood Glucose 147 H (75-99) mg/dL Crossmatch 03/29/22 03/29/22 03/29/22 Range/Units 13:59 13:59 14:00 WBC (3.8-10.6) k/uL RBC (4.30-5.90) m/uL Hgb (13.0-17.5) gm/dL Hct (39.0-53.0) % RDW (11.5-15.5) % Plt Count (150-450) k/uL Lymphocytes # (1.0-4.8) k/uL PT 13.5 H (9.0-12.0) sec INR 1.3 H (<1.2) APTT 34.9 H (22.0-30.0) sec ABG pH (7.35-7.45) ABG pCO2 (35-45) mmHg ABG pO2 (83-108) mmHg ABG HCO3 (21-25) mmol/L ABG Total CO2 (19-24) mmol/L ABG O2 Saturation (94-97) % ABG Hematocrit (34.0-46.0) % ABG Potassium (3.4-4.5) mmol/L ABG Ionized Calcium (4.5-5.3) mg/dL ABG Glucose (75-99) mg/dL ABG Lactic Acid (0.5-1.6) mmol/L Hemoglobin (13.0-17.5) gm/dL Sodium 136 L (137-145) mmol/L BUN 7 L (9-20) mg/dL Creatinine 0.55 L (0.66-1.25) mg/dL Glucose 120 H (74-99) mg/dL POC Glucose (mg/dL) 138 H (70-110) mg/dL Calcium 8.2 L (8.4-10.2) mg/dL AST 97 H (17-59) U/L Total Protein 4.3 L (6.3-8.2) g/dL Albumin 2.5 L (3.5-5.0) g/dL Arterial Blood Potassium (3.4-4.5) mmol/L Arterial Blood Glucose (75-99) mg/dL Crossmatch 03/29/22 03/29/22 03/29/22 Range/Units 14:21 15:13 16:00 WBC (3.8-10.6) k/uL RBC 2.84 L (4.30-5.90) m/uL Hgb 8.3 L (13.0-17.5) gm/dL Hct 24.8 L (39.0-53.0) % RDW 18.2 H (11.5-15.5) % Plt Count 96 L (150-450) k/uL Lymphocytes # 0.4 L (1.0-4.8) k/uL PT (9.0-12.0) sec INR (<1.2) APTT (22.0-30.0) sec ABG pH 7.47 H (7.35-7.45) ABG pCO2 (35-45) mmHg ABG pO2 133 H (83-108) mmHg ABG HCO3 27 H (21-25) mmol/L ABG Total CO2 28 H (19-24) mmol/L ABG O2 Saturation 99.0 H (94-97) % ABG Hematocrit (34.0-46.0) % ABG Potassium (3.4-4.5) mmol/L ABG Ionized Calcium (4.5-5.3) mg/dL ABG Glucose (75-99) mg/dL ABG Lactic Acid (0.5-1.6) mmol/L Hemoglobin (13.0-17.5) gm/dL Sodium (137-145) mmol/L BUN (9-20) mg/dL Creatinine (0.66-1.25) mg/dL Glucose (74-99) mg/dL POC Glucose (mg/dL) 167 H (70-110) mg/dL Calcium (8.4-10.2) mg/dL AST (17-59) U/L Total Protein (6.3-8.2) g/dL Albumin (3.5-5.0) g/dL Arterial Blood Potassium (3.4-4.5) mmol/L Arterial Blood Glucose (75-99) mg/dL Crossmatch 03/29/22 03/29/22 03/29/22 Range/Units 16:05 17:56 19:09 WBC (3.8-10.6) k/uL RBC (4.30-5.90) m/uL Hgb (13.0-17.5) gm/dL Hct (39.0-53.0) % RDW (11.5-15.5) % Plt Count (150-450) k/uL Lymphocytes # (1.0-4.8) k/uL PT (9.0-12.0) sec INR (<1.2) APTT (22.0-30.0) sec ABG pH (7.35-7.45) ABG pCO2 (35-45) mmHg ABG pO2 (83-108) mmHg ABG HCO3 (21-25) mmol/L ABG Total CO2 (19-24) mmol/L ABG O2 Saturation (94-97) % ABG Hematocrit (34.0-46.0) % ABG Potassium (3.4-4.5) mmol/L ABG Ionized Calcium (4.5-5.3) mg/dL ABG Glucose (75-99) mg/dL ABG Lactic Acid (0.5-1.6) mmol/L Hemoglobin (13.0-17.5) gm/dL Sodium (137-145) mmol/L BUN (9-20) mg/dL Creatinine (0.66-1.25) mg/dL Glucose (74-99) mg/dL POC Glucose (mg/dL) 183 H 179 H 159 H (70-110) mg/dL Calcium (8.4-10.2) mg/dL AST (17-59) U/L Total Protein (6.3-8.2) g/dL Albumin (3.5-5.0) g/dL Arterial Blood Potassium (3.4-4.5) mmol/L Arterial Blood Glucose (75-99) mg/dL Crossmatch 03/29/22 03/29/22 03/29/22 Range/Units 19:46 20:03 20:17 WBC (3.8-10.6) k/uL RBC 2.82 L (4.30-5.90) m/uL Hgb 8.3 L (13.0-17.5) gm/dL Hct 24.9 L (39.0-53.0) % RDW 18.2 H (11.5-15.5) % Plt Count 92 L (150-450) k/uL Lymphocytes # 0.3 L (1.0-4.8) k/uL PT (9.0-12.0) sec INR (<1.2) APTT (22.0-30.0) sec ABG pH (7.35-7.45) ABG pCO2 (35-45) mmHg ABG pO2 137 H (83-108) mmHg ABG HCO3 (21-25) mmol/L ABG Total CO2 26 H (19-24) mmol/L ABG O2 Saturation 99.2 H (94-97) % ABG Hematocrit (34.0-46.0) % ABG Potassium (3.4-4.5) mmol/L ABG Ionized Calcium (4.5-5.3) mg/dL ABG Glucose (75-99) mg/dL ABG Lactic Acid (0.5-1.6) mmol/L Hemoglobin (13.0-17.5) gm/dL Sodium (137-145) mmol/L BUN (9-20) mg/dL Creatinine (0.66-1.25) mg/dL Glucose (74-99) mg/dL POC Glucose (mg/dL) 143 H (70-110) mg/dL Calcium (8.4-10.2) mg/dL AST (17-59) U/L Total Protein (6.3-8.2) g/dL Albumin (3.5-5.0) g/dL Arterial Blood Potassium (3.4-4.5) mmol/L Arterial Blood Glucose (75-99) mg/dL Crossmatch 03/29/22 03/29/22 03/29/22 Range/Units 20:56 21:55 22:54 WBC (3.8-10.6) k/uL RBC (4.30-5.90) m/uL Hgb (13.0-17.5) gm/dL Hct (39.0-53.0) % RDW (11.5-15.5) % Plt Count (150-450) k/uL Lymphocytes # (1.0-4.8) k/uL PT (9.0-12.0) sec INR (<1.2) APTT (22.0-30.0) sec ABG pH (7.35-7.45) ABG pCO2 (35-45) mmHg ABG pO2 (83-108) mmHg ABG HCO3 (21-25) mmol/L ABG Total CO2 (19-24) mmol/L ABG O2 Saturation (94-97) % ABG Hematocrit (34.0-46.0) % ABG Potassium (3.4-4.5) mmol/L ABG Ionized Calcium (4.5-5.3) mg/dL ABG Glucose (75-99) mg/dL ABG Lactic Acid (0.5-1.6) mmol/L Hemoglobin (13.0-17.5) gm/dL Sodium (137-145) mmol/L BUN (9-20) mg/dL Creatinine (0.66-1.25) mg/dL Glucose (74-99) mg/dL POC Glucose (mg/dL) 137 H 138 H 143 H (70-110) mg/dL Calcium (8.4-10.2) mg/dL AST (17-59) U/L Total Protein (6.3-8.2) g/dL Albumin (3.5-5.0) g/dL Arterial Blood Potassium (3.4-4.5) mmol/L Arterial Blood Glucose (75-99) mg/dL Crossmatch 03/29/22 03/30/22 03/30/22 Range/Units 23:55 01:09 02:11 WBC (3.8-10.6) k/uL RBC (4.30-5.90) m/uL Hgb (13.0-17.5) gm/dL Hct (39.0-53.0) % RDW (11.5-15.5) % Plt Count (150-450) k/uL Lymphocytes # (1.0-4.8) k/uL PT (9.0-12.0) sec INR (<1.2) APTT (22.0-30.0) sec ABG pH (7.35-7.45) ABG pCO2 (35-45) mmHg ABG pO2 (83-108) mmHg ABG HCO3 (21-25) mmol/L ABG Total CO2 (19-24) mmol/L ABG O2 Saturation (94-97) % ABG Hematocrit (34.0-46.0) % ABG Potassium (3.4-4.5) mmol/L ABG Ionized Calcium (4.5-5.3) mg/dL ABG Glucose (75-99) mg/dL ABG Lactic Acid (0.5-1.6) mmol/L Hemoglobin (13.0-17.5) gm/dL Sodium (137-145) mmol/L BUN (9-20) mg/dL Creatinine (0.66-1.25) mg/dL Glucose (74-99) mg/dL POC Glucose (mg/dL) 130 H 123 H 123 H (70-110) mg/dL Calcium (8.4-10.2) mg/dL AST (17-59) U/L Total Protein (6.3-8.2) g/dL Albumin (3.5-5.0) g/dL Arterial Blood Potassium (3.4-4.5) mmol/L Arterial Blood Glucose (75-99) mg/dL Crossmatch 03/30/22 03/30/22 03/30/22 Range/Units 03:05 03:50 03:50 WBC (3.8-10.6) k/uL RBC 2.61 L (4.30-5.90) m/uL Hgb 7.6 L (13.0-17.5) gm/dL Hct 22.9 L (39.0-53.0) % RDW 18.2 H (11.5-15.5) % Plt Count 85 L (150-450) k/uL Lymphocytes # 0.4 L (1.0-4.8) k/uL PT (9.0-12.0) sec INR (<1.2) APTT (22.0-30.0) sec ABG pH (7.35-7.45) ABG pCO2 (35-45) mmHg ABG pO2 (83-108) mmHg ABG HCO3 (21-25) mmol/L ABG Total CO2 (19-24) mmol/L ABG O2 Saturation (94-97) % ABG Hematocrit (34.0-46.0) % ABG Potassium (3.4-4.5) mmol/L ABG Ionized Calcium (4.5-5.3) mg/dL ABG Glucose (75-99) mg/dL ABG Lactic Acid (0.5-1.6) mmol/L Hemoglobin (13.0-17.5) gm/dL Sodium 135 L (137-145) mmol/L BUN (9-20) mg/dL Creatinine 0.56 L (0.66-1.25) mg/dL Glucose 103 H (74-99) mg/dL POC Glucose (mg/dL) 123 H (70-110) mg/dL Calcium 8.1 L (8.4-10.2) mg/dL AST 106 H (17-59) U/L Total Protein 4.7 L (6.3-8.2) g/dL Albumin 2.9 L (3.5-5.0) g/dL Arterial Blood Potassium (3.4-4.5) mmol/L Arterial Blood Glucose (75-99) mg/dL Crossmatch 03/30/22 03/30/22 03/30/22 Range/Units 03:53 05:03 05:57 WBC (3.8-10.6) k/uL RBC (4.30-5.90) m/uL Hgb (13.0-17.5) gm/dL Hct (39.0-53.0) % RDW (11.5-15.5) % Plt Count (150-450) k/uL Lymphocytes # (1.0-4.8) k/uL PT (9.0-12.0) sec INR (<1.2) APTT (22.0-30.0) sec ABG pH (7.35-7.45) ABG pCO2 (35-45) mmHg ABG pO2 (83-108) mmHg ABG HCO3 (21-25) mmol/L ABG Total CO2 (19-24) mmol/L ABG O2 Saturation (94-97) % ABG Hematocrit (34.0-46.0) % ABG Potassium (3.4-4.5) mmol/L ABG Ionized Calcium (4.5-5.3) mg/dL ABG Glucose (75-99) mg/dL ABG Lactic Acid (0.5-1.6) mmol/L Hemoglobin (13.0-17.5) gm/dL Sodium (137-145) mmol/L BUN (9-20) mg/dL Creatinine (0.66-1.25) mg/dL Glucose (74-99) mg/dL POC Glucose (mg/dL) 116 H 116 H 115 H (70-110) mg/dL Calcium (8.4-10.2) mg/dL AST (17-59) U/L Total Protein (6.3-8.2) g/dL Albumin (3.5-5.0) g/dL Arterial Blood Potassium (3.4-4.5) mmol/L Arterial Blood Glucose (75-99) mg/dL Crossmatch 03/30/22 03/30/22 03/30/22 Range/Units 06:55 08:56 09:06 WBC (3.8-10.6) k/uL RBC (4.30-5.90) m/uL Hgb (13.0-17.5) gm/dL Hct (39.0-53.0) % RDW (11.5-15.5) % Plt Count (150-450) k/uL Lymphocytes # (1.0-4.8) k/uL PT (9.0-12.0) sec INR (<1.2) APTT (22.0-30.0) sec ABG pH (7.35-7.45) ABG pCO2 (35-45) mmHg ABG pO2 (83-108) mmHg ABG HCO3 (21-25) mmol/L ABG Total CO2 (19-24) mmol/L ABG O2 Saturation (94-97) % ABG Hematocrit (34.0-46.0) % ABG Potassium (3.4-4.5) mmol/L ABG Ionized Calcium (4.5-5.3) mg/dL ABG Glucose (75-99) mg/dL ABG Lactic Acid (0.5-1.6) mmol/L Hemoglobin (13.0-17.5) gm/dL Sodium (137-145) mmol/L BUN (9-20) mg/dL Creatinine (0.66-1.25) mg/dL Glucose (74-99) mg/dL POC Glucose (mg/dL) 118 H 113 H 113 H (70-110) mg/dL Calcium (8.4-10.2) mg/dL AST (17-59) U/L Total Protein (6.3-8.2) g/dL Albumin (3.5-5.0) g/dL Arterial Blood Potassium (3.4-4.5) mmol/L Arterial Blood Glucose (75-99) mg/dL Crossmatch 03/30/22 03/30/22 03/30/22 Range/Units 10:18 10:54 12:00 WBC (3.8-10.6) k/uL RBC (4.30-5.90) m/uL Hgb (13.0-17.5) gm/dL Hct (39.0-53.0) % RDW (11.5-15.5) % Plt Count (150-450) k/uL Lymphocytes # (1.0-4.8) k/uL PT (9.0-12.0) sec INR (<1.2) APTT (22.0-30.0) sec ABG pH (7.35-7.45) ABG pCO2 (35-45) mmHg ABG pO2 (83-108) mmHg ABG HCO3 (21-25) mmol/L ABG Total CO2 (19-24) mmol/L ABG O2 Saturation (94-97) % ABG Hematocrit (34.0-46.0) % ABG Potassium (3.4-4.5) mmol/L ABG Ionized Calcium (4.5-5.3) mg/dL ABG Glucose (75-99) mg/dL ABG Lactic Acid (0.5-1.6) mmol/L Hemoglobin (13.0-17.5) gm/dL Sodium (137-145) mmol/L BUN (9-20) mg/dL Creatinine (0.66-1.25) mg/dL Glucose (74-99) mg/dL POC Glucose (mg/dL) 137 H 132 H 125 H (70-110) mg/dL Calcium (8.4-10.2) mg/dL AST (17-59) U/L Total Protein (6.3-8.2) g/dL Albumin (3.5-5.0) g/dL Arterial Blood Potassium (3.4-4.5) mmol/L Arterial Blood Glucose (75-99) mg/dL Crossmatch
[2022-03-30 12:31] VITALS: BMI 23.8
--- NOTE | 2022-03-30 12:50 | P.PN ---
Subjective Progress Note Date: 03/30/22 Principal diagnosis: Severe aortic insufficiency, severe mitral regurgitation, patent foramen ovale, persistent atrial fibrillation. Previous medical history of hypertension, hype rlipidemia, previous tobacco dependence, opioid dependence on Suboxone outpatient, and preoperative myeloproliferative disorder with chronic leukopenia, anemia, and thrombocytopenia POD#1 aortic valve replacement with a #25 mm Medtronic Avalus bioprosthetic aortic valve, mitral valve repair with a #30 mm CarboMedics AnnuloFlex band, closure of patent foramen ovale, complete left-sided maze using radiofrequency and cryo energy sources, clip ligation of the left atrial appendage with a 35 mm AtriClip, intraoperative transesophageal echocardiogram Postoperative acute blood loss anemia and thrombocytopenia expected given hemodilution, cardiopulmonary bypass pump, and preoperative anemia The patient was seen and examined this morning sitting up in a recliner in the intensive care unit in no acute distress. He was successfully extubated last night at 20:31. Currently atrially paced at 70 bpm, underlying rhythm sinus in the 60s with occasional PACs. Hemodynamically stable on no inotropes or pressors. All patient's only complaint is post surgical pain which we knew ahead of time was going to be difficult to control considering his chronic Suboxone usage. Right internal jugular Lawn/Cordis, left radial arterial line, mediastinal/left/right pleural chest tubes all remaining present. No other new concerns. Objective - Vital Signs Vital signs: Vital Signs Temp 99.3 F 03/30/22 04:00 Pulse 80 03/30/22 07:00 Resp 17 03/30/22 07:00 BP 91/56 03/30/22 05:00 Pulse Ox 99 03/30/22 07:00 FiO2 50 03/29/22 20:30 Intake & Output 03/29/22 03/30/22 03/30/22 18:59 06:59 18:59 Intake Total 2116.187 7647.010 Output Total 3700 625 Balance -2290.685 544.010 Weight 71.1 kg Intake: IV 547 898 CO/CI 100 140 Lactated Ringers 1,000 ml 250 650 @ 50 mls/hr IV .Q20H EVELYN Rx#:[id number] Potassium Chloride 20 meq 100 In Water For Injection 1 100ml.bag @ 50 mls/hr IVPB ONCE STA Rx#: [id number] Pressure 45 108 Intake, IV Titration 80.315 271.010 Amount Amiodarone 450 mg In 216.393 Dextrose 5% in Water 250 ml @ 0.5 MG/MIN 16.667 mls/hr IV .Q15H EVELYN Rx#: [id number] Dexmedetomidine/0.9% NaCl 41.898 28.661 (Pmx) 400 mcg In Empty Bag 1 bag @ Titrate IV . Q0M EVELYN Rx#:[id number] Insulin Regular 100 unit 8.653 25.956 In Sodium Chloride 0.9% 100 ml @ Per Protocol IV .Q0M [facility]ELYN Rx#:[id number] propofoL 1,000 mg In 29.764 Empty Bag 1 bag @ Titrate IV .Q0M EVELYN Rx#: [id number] Blood Product 782 Ffp 24 Pher Acda Unit 215 [id number] Ffp 24 Pher Acda Cnt1 224 Unit [id number] Platelet Pheresis Pas 343 Psoralen Unit [id number] Output: Chest Tube Drainage 570 200 LP/RP 320 110 MS 250 90 Urine 1130 425 Estimated Blood Loss 1999 Other: Voiding Method Indwelling Catheter Indwelling Catheter ABP, PAP, CO, CI - Last Documented Arterial Blood Pressure 123/56 Pulmonary Artery Pressure 27/10 Cardiac Output 5.6 Cardiac Index 3.0 - Exam CONSTITUTIONAL: Appears comfortable, cooperative, no acute distress RESPIRATORY: Lungs sounds diminished bilaterally. Respirations even, nonlabo red. Currently on 2 L nasal cannula with oxygen saturation 97%. Able to achieve 750 mL on incentive spirometry. Strong cough. CARDIOVASCULAR: S1, S2 present. Regular rate and rhythm, sinus rhythm on telemetry. Sternum stable. Palpable peripheral pulses bilaterally. No edema present. No calf pain or tenderness noted. Heart hugger in place with patient demonstrating appropriate use. Antiembolism stockings, SCDs present. GASTROINTESTINAL: Abdomen soft, nontender, nondistended. Hypoactive bowel sounds present 4 quadrants. Tolerating diet. Denies flatus GENITOURINARY: Cain present draining clear, yellow urine. Output overnight 15-45 mL per hour INTEGUMENTARY: Skin is warm and dry with evidence of good perfusion. Anterior chest incision well approximated and covered with dry intact dressing NEUROLOGIC: Cranial nerves II through XII intact MUSKULOSKELETAL: Able to move all extremities, strength equal bilaterally, gait normal PSYCHIATRIC: Alert and oriented to person place and time, appropriate affect, intact judgment and insight INVASIVE LINES AND TUBES: Mediastinal/left/right pleural chest tubes present and connected to wall suction, no air leaks present. Mediastinal tube with 40 mL serosanguineous drainage overnight, 300 mL since surgery. Left/right pleural chest tubes with 45 mL serosanguineous drainage overnight, 420 mL since surgery. A/V epicardial pacemaker wires present, connected to generator, AAI mode with rate 70 bpm. Right internal jugular Lawn/Cordis, left radial arterial line present. Last CO/CI 5.6/3.0, PA 31/07, CVP 6. - Allied health notes Allied health notes reviewed: nursing - Labs CBC & Chem 7: 03/30/22 03:50 03/30/22 03:50 Labs: Abnormal Lab Results - Last 24 Hours (Table) 03/23/22 03/29/22 03/29/22 Range/Units 11:30 08:34 09:06 WBC (3.8-10.6) k/uL RBC (4.30-5.90) m/uL Hgb (13.0-17.5) gm/dL Hct (39.0-53.0) % RDW (11.5-15.5) % Plt Count (150-450) k/uL Lymphocytes # (1.0-4.8) k/uL PT (9.0-12.0) sec INR (<1.2) APTT (22.0-30.0) sec ABG pH 7.48 H 7.46 H (7.35-7.45) ABG pCO2 (35-45) mmHg ABG pO2 199 H 145 H (83-108) mmHg ABG HCO3 31 H 31 H (21-25) mmol/L ABG Total CO2 33 H 33 H (19-24) mmol/L ABG O2 Saturation 99.6 H 99.2 H (94-97) % ABG Hematocrit 32 L 31 L (34.0-46.0) % ABG Potassium (3.4-4.5) mmol/L ABG Ionized Calcium (4.5-5.3) mg/dL ABG Glucose 109 H (75-99) mg/dL ABG Lactic Acid 0.4 L (0.5-1.6) mmol/L Hemoglobin 10.4 L 10.2 L (13.0-17.5) gm/dL Sodium (137-145) mmol/L BUN (9-20) mg/dL Creatinine (0.66-1.25) mg/dL Glucose (74-99) mg/dL POC Glucose (mg/dL) (70-110) mg/dL Calcium (8.4-10.2) mg/dL AST (17-59) U/L Total Protein (6.3-8.2) g/dL Albumin (3.5-5.0) g/dL Arterial Blood Potassium (3.4-4.5) mmol/L Arterial Blood Glucose 109 H (75-99) mg/dL Crossmatch See Detail 03/29/22 03/29/22 03/29/22 Range/Units 10:26 10:58 11:30 WBC (3.8-10.6) k/uL RBC (4.30-5.90) m/uL Hgb (13.0-17.5) gm/dL Hct (39.0-53.0) % RDW (11.5-15.5) % Plt Count (150-450) k/uL Lymphocytes # (1.0-4.8) k/uL PT (9.0-12.0) sec INR (<1.2) APTT (22.0-30.0) sec ABG pH 7.50 H 7.52 H (7.35-7.45) ABG pCO2 50 H (35-45) mmHg ABG pO2 313 H 325 H 294 H (83-108) mmHg ABG HCO3 29 H 31 H 30 H (21-25) mmol/L ABG Total CO2 30 H 32 H 31 H (19-24) mmol/L ABG O2 Saturation 100.0 H 100.0 H 100.0 H (94-97) % ABG Hematocrit 25 L 24 L 24 L (34.0-46.0) % ABG Potassium (3.4-4.5) mmol/L ABG Ionized Calcium 4.0 L 4.3 L 4.2 L (4.5-5.3) mg/dL ABG Glucose 143 H 134 H 150 H (75-99) mg/dL ABG Lactic Acid (0.5-1.6) mmol/L Hemoglobin 8.1 L 7.9 L 7.7 L (13.0-17.5) gm/dL Sodium (137-145) mmol/L BUN (9-20) mg/dL Creatinine (0.66-1.25) mg/dL Glucose (74-99) mg/dL POC Glucose (mg/dL) (70-110) mg/dL Calcium (8.4-10.2) mg/dL AST (17-59) U/L Total Protein (6.3-8.2) g/dL Albumin (3.5-5.0) g/dL Arterial Blood Potassium (3.4-4.5) mmol/L Arterial Blood Glucose 143 H 134 H 150 H (75-99) mg/dL Crossmatch 03/29/22 03/29/22 03/29/22 Range/Units 12:44 13:51 13:59 WBC 3.7 L (3.8-10.6) k/uL RBC 2.64 L (4.30-5.90) m/uL Hgb 7.7 L (13.0-17.5) gm/dL Hct 23.0 L (39.0-53.0) % RDW 18.2 H (11.5-15.5) % Plt Count 80 L (150-450) k/uL Lymphocytes # 0.6 L (1.0-4.8) k/uL PT (9.0-12.0) sec INR (<1.2) APTT (22.0-30.0) sec ABG pH (7.35-7.45) ABG pCO2 (35-45) mmHg ABG pO2 110 H (83-108) mmHg ABG HCO3 28 H (21-25) mmol/L ABG Total CO2 30 H (19-24) mmol/L ABG O2 Saturation 98.4 H (94-97) % ABG Hematocrit 24 L (34.0-46.0) % ABG Potassium 3.3 L (3.4-4.5) mmol/L ABG Ionized Calcium (4.5-5.3) mg/dL ABG Glucose 147 H (75-99) mg/dL ABG Lactic Acid 1.9 H (0.5-1.6) mmol/L Hemoglobin 7.9 L (13.0-17.5) gm/dL Sodium (137-145) mmol/L BUN (9-20) mg/dL Creatinine (0.66-1.25) mg/dL Glucose (74-99) mg/dL POC Glucose (mg/dL) 125 H (70-110) mg/dL Calcium (8.4-10.2) mg/dL AST (17-59) U/L Total Protein (6.3-8.2) g/dL Albumin (3.5-5.0) g/dL Arterial Blood Potassium 3.3 L (3.4-4.5) mmol/L Arterial Blood Glucose 147 H (75-99) mg/dL Crossmatch 03/29/22 03/29/22 03/29/22 Range/Units 13:59 13:59 14:00 WBC (3.8-10.6) k/uL RBC (4.30-5.90) m/uL Hgb (13.0-17.5) gm/dL Hct (39.0-53.0) % RDW (11.5-15.5) % Plt Count (150-450) k/uL Lymphocytes # (1.0-4.8) k/uL PT 13.5 H (9.0-12.0) sec INR 1.3 H (<1.2) APTT 34.9 H (22.0-30.0) sec ABG pH (7.35-7.45) ABG pCO2 (35-45) mmHg ABG pO2 (83-108) mmHg ABG HCO3 (21-25) mmol/L ABG Total CO2 (19-24) mmol/L ABG O2 Saturation (94-97) % ABG Hematocrit (34.0-46.0) % ABG Potassium (3.4-4.5) mmol/L ABG Ionized Calcium (4.5-5.3) mg/dL ABG Glucose (75-99) mg/dL ABG Lactic Acid (0.5-1.6) mmol/L Hemoglobin (13.0-17.5) gm/dL Sodium 136 L (137-145) mmol/L BUN 7 L (9-20) mg/dL Creatinine 0.55 L (0.66-1.25) mg/dL Glucose 120 H (74-99) mg/dL POC Glucose (mg/dL) 138 H (70-110) mg/dL Calcium 8.2 L (8.4-10.2) mg/dL AST 97 H (17-59) U/L Total Protein 4.3 L (6.3-8.2) g/dL Albumin 2.5 L (3.5-5.0) g/dL Arterial Blood Potassium (3.4-4.5) mmol/L Arterial Blood Glucose (75-99) mg/dL Crossmatch 03/29/22 03/29/22 03/29/22 Range/Units 14:21 15:13 16:00 WBC (3.8-10.6) k/uL RBC 2.84 L (4.30-5.90) m/uL Hgb 8.3 L (13.0-17.5) gm/dL Hct 24.8 L (39.0-53.0) % RDW 18.2 H (11.5-15.5) % Plt Count 96 L (150-450) k/uL Lymphocytes # 0.4 L (1.0-4.8) k/uL PT (9.0-12.0) sec INR (<1.2) APTT (22.0-30.0) sec ABG pH 7.47 H (7.35-7.45) ABG pCO2 (35-45) mmHg ABG pO2 133 H (83-108) mmHg ABG HCO3 27 H (21-25) mmol/L ABG Total CO2 28 H (19-24) mmol/L ABG O2 Saturation 99.0 H (94-97) % ABG Hematocrit (34.0-46.0) % ABG Potassium (3.4-4.5) mmol/L ABG Ionized Calcium (4.5-5.3) mg/dL ABG Glucose (75-99) mg/dL ABG Lactic Acid (0.5-1.6) mmol/L Hemoglobin (13.0-17.5) gm/dL Sodium (137-145) mmol/L BUN (9-20) mg/dL Creatinine (0.66-1.25) mg/dL Glucose (74-99) mg/dL POC Glucose (mg/dL) 167 H (70-110) mg/dL Calcium (8.4-10.2) mg/dL AST (17-59) U/L Total Protein (6.3-8.2) g/dL Albumin (3.5-5.0) g/dL Arterial Blood Potassium (3.4-4.5) mmol/L Arterial Blood Glucose (75-99) mg/dL Crossmatch 03/29/22 03/29/22 03/29/22 Range/Units 16:05 17:56 19:09 WBC (3.8-10.6) k/uL RBC (4.30-5.90) m/uL Hgb (13.0-17.5) gm/dL Hct (39.0-53.0) % RDW (11.5-15.5) % Plt Count (150-450) k/uL Lymphocytes # (1.0-4.8) k/uL PT (9.0-12.0) sec INR (<1.2) APTT (22.0-30.0) sec ABG pH (7.35-7.45) ABG pCO2 (35-45) mmHg ABG pO2 (83-108) mmHg ABG HCO3 (21-25) mmol/L ABG Total CO2 (19-24) mmol/L ABG O2 Saturation (94-97) % ABG Hematocrit (34.0-46.0) % ABG Potassium (3.4-4.5) mmol/L ABG Ionized Calcium (4.5-5.3) mg/dL ABG Glucose (75-99) mg/dL ABG Lactic Acid (0.5-1.6) mmol/L Hemoglobin (13.0-17.5) gm/dL Sodium (137-145) mmol/L BUN (9-20) mg/dL Creatinine (0.66-1.25) mg/dL Glucose (74-99) mg/dL POC Glucose (mg/dL) 183 H 179 H 159 H (70-110) mg/dL Calcium (8.4-10.2) mg/dL AST (17-59) U/L Total Protein (6.3-8.2) g/dL Albumin (3.5-5.0) g/dL Arterial Blood Potassium (3.4-4.5) mmol/L Arterial Blood Glucose (75-99) mg/dL Crossmatch 03/29/22 03/29/22 03/29/22 Range/Units 19:46 20:03 20:17 WBC (3.8-10.6) k/uL RBC 2.82 L (4.30-5.90) m/uL Hgb 8.3 L (13.0-17.5) gm/dL Hct 24.9 L (39.0-53.0) % RDW 18.2 H (11.5-15.5) % Plt Count 92 L (150-450) k/uL Lymphocytes # 0.3 L (1.0-4.8) k/uL PT (9.0-12.0) sec INR (<1.2) APTT (22.0-30.0) sec ABG pH (7.35-7.45) ABG pCO2 (35-45) mmHg ABG pO2 137 H (83-108) mmHg ABG HCO3 (21-25) mmol/L ABG Total CO2 26 H (19-24) mmol/L ABG O2 Saturation 99.2 H (94-97) % ABG Hematocrit (34.0-46.0) % ABG Potassium (3.4-4.5) mmol/L ABG Ionized Calcium (4.5-5.3) mg/dL ABG Glucose (75-99) mg/dL ABG Lactic Acid (0.5-1.6) mmol/L Hemoglobin (13.0-17.5) gm/dL Sodium (137-145) mmol/L BUN (9-20) mg/dL Creatinine (0.66-1.25) mg/dL Glucose (74-99) mg/dL POC Glucose (mg/dL) 143 H (70-110) mg/dL Calcium (8.4-10.2) mg/dL AST (17-59) U/L Total Protein (6.3-8.2) g/dL Albumin (3.5-5.0) g/dL Arterial Blood Potassium (3.4-4.5) mmol/L Arterial Blood Glucose (75-99) mg/dL Crossmatch 03/29/22 03/29/22 03/29/22 Range/Units 20:56 21:55 22:54 WBC (3.8-10.6) k/uL RBC (4.30-5.90) m/uL Hgb (13.0-17.5) gm/dL Hct (39.0-53.0) % RDW (11.5-15.5) % Plt Count (150-450) k/uL Lymphocytes # (1.0-4.8) k/uL PT (9.0-12.0) sec INR (<1.2) APTT (22.0-30.0) sec ABG pH (7.35-7.45) ABG pCO2 (35-45) mmHg ABG pO2 (83-108) mmHg ABG HCO3 (21-25) mmol/L ABG Total CO2 (19-24) mmol/L ABG O2 Saturation (94-97) % ABG Hematocrit (34.0-46.0) % ABG Potassium (3.4-4.5) mmol/L ABG Ionized Calcium (4.5-5.3) mg/dL ABG Glucose (75-99) mg/dL ABG Lactic Acid (0.5-1.6) mmol/L Hemoglobin (13.0-17.5) gm/dL Sodium (137-145) mmol/L BUN (9-20) mg/dL Creatinine (0.66-1.25) mg/dL Glucose (74-99) mg/dL POC Glucose (mg/dL) 137 H 138 H 143 H (70-110) mg/dL Calcium (8.4-10.2) mg/dL AST (17-59) U/L Total Protein (6.3-8.2) g/dL Albumin (3.5-5.0) g/dL Arterial Blood Potassium (3.4-4.5) mmol/L Arterial Blood Glucose (75-99) mg/dL Crossmatch 03/29/22 03/30/22 03/30/22 Range/Units 23:55 01:09 02:11 WBC (3.8-10.6) k/uL RBC (4.30-5.90) m/uL Hgb (13.0-17.5) gm/dL Hct (39.0-53.0) % RDW (11.5-15.5) % Plt Count (150-450) k/uL Lymphocytes # (1.0-4.8) k/uL PT (9.0-12.0) sec INR (<1.2) APTT (22.0-30.0) sec ABG pH (7.35-7.45) ABG pCO2 (35-45) mmHg ABG pO2 (83-108) mmHg ABG HCO3 (21-25) mmol/L ABG Total CO2 (19-24) mmol/L ABG O2 Saturation (94-97) % ABG Hematocrit (34.0-46.0) % ABG Potassium (3.4-4.5) mmol/L ABG Ionized Calcium (4.5-5.3) mg/dL ABG Glucose (75-99) mg/dL ABG Lactic Acid (0.5-1.6) mmol/L Hemoglobin (13.0-17.5) gm/dL Sodium (137-145) mmol/L BUN (9-20) mg/dL Creatinine (0.66-1.25) mg/dL Glucose (74-99) mg/dL POC Glucose (mg/dL) 130 H 123 H 123 H (70-110) mg/dL Calcium (8.4-10.2) mg/dL AST (17-59) U/L Total Protein (6.3-8.2) g/dL Albumin (3.5-5.0) g/dL Arterial Blood Potassium (3.4-4.5) mmol/L Arterial Blood Glucose (75-99) mg/dL Crossmatch 03/30/22 03/30/22 03/30/22 Range/Units 03:05 03:50 03:50 WBC (3.8-10.6) k/uL RBC 2.61 L (4.30-5.90) m/uL Hgb 7.6 L (13.0-17.5) gm/dL Hct 22.9 L (39.0-53.0) % RDW 18.2 H (11.5-15.5) % Plt Count 85 L (150-450) k/uL Lymphocytes # 0.4 L (1.0-4.8) k/uL PT (9.0-12.0) sec INR (<1.2) APTT (22.0-30.0) sec ABG pH (7.35-7.45) ABG pCO2 (35-45) mmHg ABG pO2 (83-108) mmHg ABG HCO3 (21-25) mmol/L ABG Total CO2 (19-24) mmol/L ABG O2 Saturation (94-97) % ABG Hematocrit (34.0-46.0) % ABG Potassium (3.4-4.5) mmol/L ABG Ionized Calcium (4.5-5.3) mg/dL ABG Glucose (75-99) mg/dL ABG Lactic Acid (0.5-1.6) mmol/L Hemoglobin (13.0-17.5) gm/dL Sodium 135 L (137-145) mmol/L BUN (9-20) mg/dL Creatinine 0.56 L (0.66-1.25) mg/dL Glucose 103 H (74-99) mg/dL POC Glucose (mg/dL) 123 H (70-110) mg/dL Calcium 8.1 L (8.4-10.2) mg/dL AST 106 H (17-59) U/L Total Protein 4.7 L (6.3-8.2) g/dL Albumin 2.9 L (3.5-5.0) g/dL Arterial Blood Potassium (3.4-4.5) mmol/L Arterial Blood Glucose (75-99) mg/dL Crossmatch 03/30/22 03/30/22 03/30/22 Range/Units 03:53 05:03 05:57 WBC (3.8-10.6) k/uL RBC (4.30-5.90) m/uL Hgb (13.0-17.5) gm/dL Hct (39.0-53.0) % RDW (11.5-15.5) % Plt Count (150-450) k/uL Lymphocytes # (1.0-4.8) k/uL PT (9.0-12.0) sec INR (<1.2) APTT (22.0-30.0) sec ABG pH (7.35-7.45) ABG pCO2 (35-45) mmHg ABG pO2 (83-108) mmHg ABG HCO3 (21-25) mmol/L ABG Total CO2 (19-24) mmol/L ABG O2 Saturation (94-97) % ABG Hematocrit (34.0-46.0) % ABG Potassium (3.4-4.5) mmol/L ABG Ionized Calcium (4.5-5.3) mg/dL ABG Glucose (75-99) mg/dL ABG Lactic Acid (0.5-1.6) mmol/L Hemoglobin (13.0-17.5) gm/dL Sodium (137-145) mmol/L BUN (9-20) mg/dL Creatinine (0.66-1.25) mg/dL Glucose (74-99) mg/dL POC Glucose (mg/dL) 116 H 116 H 115 H (70-110) mg/dL Calcium (8.4-10.2) mg/dL AST (17-59) U/L Total Protein (6.3-8.2) g/dL Albumin (3.5-5.0) g/dL Arterial Blood Potassium (3.4-4.5) mmol/L Arterial Blood Glucose (75-99) mg/dL Crossmatch 03/30/22 Range/Units 06:55 WBC (3.8-10.6) k/uL RBC (4.30-5.90) m/uL Hgb (13.0-17.5) gm/dL Hct (39.0-53.0) % RDW (11.5-15.5) % Plt Count (150-450) k/uL Lymphocytes # (1.0-4.8) k/uL PT (9.0-12.0) sec INR (<1.2) APTT (22.0-30.0) sec ABG pH (7.35-7.45) ABG pCO2 (35-45) mmHg ABG pO2 (83-108) mmHg ABG HCO3 (21-25) mmol/L ABG Total CO2 (19-24) mmol/L ABG O2 Saturation (94-97) % ABG Hematocrit (34.0-46.0) % ABG Potassium (3.4-4.5) mmol/L ABG Ionized Calcium (4.5-5.3) mg/dL ABG Glucose (75-99) mg/dL ABG Lactic Acid (0.5-1.6) mmol/L Hemoglobin (13.0-17.5) gm/dL Sodium (137-145) mmol/L BUN (9-20) mg/dL Creatinine (0.66-1.25) mg/dL Glucose (74-99) mg/dL POC Glucose (mg/dL) 118 H (70-110) mg/dL Calcium (8.4-10.2) mg/dL AST (17-59) U/L Total Protein (6.3-8.2) g/dL Albumin (3.5-5.0) g/dL Arterial Blood Potassium (3.4-4.5) mmol/L Arterial Blood Glucose (75-99) mg/dL Crossmatch - Imaging and Cardiology Chest x-ray: report reviewed, image reviewed Assessment and Plan Assessment: 1. Severe aortic insufficiency, status post aortic valve replacement 2. Severe mitral regurgitation, status post mitral valve repair 3. Patent foramen ovale, status post closure 4. Persistent atrial fibrillation, status post complete left-sided maze using radiofrequency and cryo energy sources, clip ligation of the left atrial appendage 5. History of hypertension 6. History of hyperlipidemia, treated, cholesterol 120, LDL 43 7. Previous tobacco dependence, preoperative FEV1 70% of predicted 8. Opioid dependence on Suboxone outpatient 9. Preoperative myeloproliferative disorder with chronic leukopenia, anemia, and thrombocytopenia 10. Postoperative acute blood loss anemia and thrombocytopenia Plan: 1. Continue to maximize medical therapy with full strength aspirin, statin, beta ralph therapy. Increase beta ralph therapy as tolerated 2. Continue amiodarone for A. fib prophylaxis, will transition to oral 3. Wean O2 as tolerated. Encourage incentive spirometry 10 times every hour while awake. Bronchodilators per pulmonology 4. Increase activity, ambulate as tolerated. PT/OT/cardiac rehab consulted 5. Will monitor daily labs and CXR. Electrolyte replacement per protocol 6. Pain control with current medication regimen. Patient to continue Suboxone as per his home dose with added pain medication which will be titrated acco rdingly 7. Insulin management per internal medicine. Patient is not diabetic, preoperative hemaglobin A1c 5.5% 8. Discontinue swan, bebeto cordis to continuous CVP monitoring 9. Continue chest tubes for another 24 hours 10. Continue cain for another 24 hours for strict accurate intake and output. Daily weights 11. More recommendations to follow
[2022-03-30 13:56] LABS: Glucose,Whole Blood 90 mg/dL (70-110)
--- NOTE | 2022-03-30 14:15 | P.CNPUL ---
History of Present Illness Consult date: 03/30/22 Reason for consult: other (Postoperative ICU management) Chief complaint: Status post aortic valve replacement and mitral valve repair History of present illness: POD#1 aortic valve replacement with a #25 mm Medtronic Avalus bioprosthetic aortic valve, mitral valve repair with a #30 mm [employer] AnnuloFlex band, closure of patent foramen ovale, complete left-sided maze using radiofrequency and cryo energy sources, clip ligation of the left atrial appendage with a 35 mm AtriClip, intraoperative transesophageal echocardiogram. Patient underwent surgery yesterday, and postoperatively I was made aware of the patient at night, reviewed his ventilator settings, his vent settings were adjusted accordingly to the ABG, and few hours later I was notified about the patient on CPAP, I extubated the patient uneventfully. Patient was evaluated today, he is sitting at a bedside chair, not in any distress. Patient was extubated at 20:31, he is now paced at 70 bpm, has atrial pacing. He is hemodynamically stable, not requiring any pressors. On 2 L nasal cannula with O2 saturation 97%. He is on amiodarone at 0.5 mg/m. Chest x-ray showed minimal left basilar atelectasis. PA pressure is 27/8 CVP is 4, continues to have chest tubes in place Review of Systems CONSTITUTIONAL: Negative EYES: Negative ENT: Negative CARDIOVASCULAR: Dyspnea on exertion VASCULAR: Negative RESPIRATORY: Dyspnea on exertion GASTROINTESTINAL: Negative MUSCULOSKELETAL: Negative. NEUROLOGIC: Negative ENDOCRINE: Negative GENITOURINARY: Negative HEMATOLOGIC: Negative DERMATOLOGY: Negative PSYCH: Negative. Past Medical History Past Medical History: Atrial Fibrillation, Hypertension, Pneumonia Additional Past Medical History / Comment(s): Chronic back pain., pneumonia several years ago, recent dx. of low iron, had 3 iron infusions, SOB w/exertion History of Any Multi-Drug Resistant Organisms: None Reported Past Surgical History: Appendectomy, Cholecystectomy, Heart Catheterization, O rthopedic Surgery Additional Past Surgical History / Comment(s): Right bicep tendon repair. Past Anesthesia/Blood Transfusion Reactions: No Reported Reaction Smoking Status: Former smoker - Past Family History Mother Family Medical History: No Reported History Medications and Allergies Home Medications Medication Instructions Recorded Confirmed Type Apixaban [Eliquis] 5 mg PO BID 06/25/17 03/29/22 History Buprenorphine HCl/Naloxone HCl 0.5 each SL QAM 03/12/21 03/29/22 History [Suboxone 8 mg-2 mg Sl Film] Buprenorphine HCl/Naloxone HCl 1 each SL 1600 03/12/21 03/29/22 History [Suboxone 8 mg-2 mg Sl Film] Digoxin [Lanoxin] 125 mcg PO QAM 03/12/21 03/29/22 History Escitalopram Oxalate [Lexapro] 20 mg PO QAM 03/12/21 03/29/22 History LORazepam [Ativan] 0.5 mg PO BID 03/12/21 03/29/22 History Metoprolol Tartrate [Lopressor] 100 mg PO QAM 12/16/21 03/29/22 History Rosuvastatin [Crestor] 10 mg PO DAILY 12/16/21 03/29/22 History Metoprolol Tartrate [Lopressor] 50 mg PO HS 03/23/22 03/29/22 History Mupirocin [Mupirocin 2%] 1 applic NASAL BID #1 tub 03/25/22 03/29/22 Rx Allergies Allergy/AdvReac Type Severity Reaction Status Date / Time No Known Allergies Allergy Verified 03/29/22 06:33 Physical Exam Vitals: Vital Signs Temp Pulse Resp BP Pulse Ox FiO2 03/30/22 11:30 68 12 99 03/30/22 11:27 63 03/30/22 11:17 69 03/30/22 11:04 69 27 H 97 03/30/22 10:30 68 13 97 03/30/22 10:00 70 19 102/66 98 03/30/22 09:30 69 19 97 03/30/22 09:00 70 18 98 03/30/22 08:30 70 16 98 03/30/22 08:00 79 19 94/62 97 03/30/22 07:30 84 14 98 03/30/22 07:00 80 17 99 03/30/22 06:30 78 22 98 03/30/22 06:00 80 31 H 92 L 03/30/22 05:30 80 26 H 98 03/30/22 05:00 80 20 91/56 98 03/30/22 04:30 80 12 97 03/30/22 04:00 99.3 F 80 11 L 96 03/30/22 03:30 80 13 96 03/30/22 03:00 80 10 L 95 03/30/22 02:30 80 18 95 03/30/22 02:00 80 11 L 95 03/30/22 01:30 80 13 95 03/30/22 01:15 80 11 L 95 03/30/22 01:00 80 11 L 97 03/30/22 00:45 80 14 82/59 97 03/30/22 00:30 80 20 94 L 03/30/22 00:15 80 25 H 94 L 03/30/22 00:00 99.3 F 79 17 96 03/29/22 23:45 79 12 98 03/29/22 23:30 77 12 95 03/29/22 23:15 80 14 96 03/29/22 23:00 79 14 97 03/29/22 22:45 80 13 96 03/29/22 22:30 80 13 94 L 03/29/22 22:15 81 14 95 03/29/22 22:00 80 14 96 03/29/22 21:45 80 13 95 03/29/22 21:30 80 12 96 03/29/22 21:15 79 15 95 03/29/22 21:00 79 13 99 03/29/22 20:45 68 17 97 03/29/22 20:37 100 03/29/22 20:30 80 14 100 50 03/29/22 20:28 80 03/29/22 20:22 81 03/29/22 20:15 62 14 99 50 03/29/22 20:00 99.3 F 62 14 78/51 99 50 03/29/22 19:45 62 25 H 100 50 03/29/22 19:39 50 03/29/22 19:30 60 14 100 50 03/29/22 19:15 64 21 100 50 03/29/22 19:00 65 22 100 03/29/22 18:45 66 22 100 03/29/22 18:30 65 24 100 03/29/22 18:15 67 26 H 100 03/29/22 18:00 66 22 100 03/29/22 17:45 66 31 H 100 03/29/22 17:30 66 25 H 100 03/29/22 17:15 63 23 100 03/29/22 17:00 62 20 92 L 03/29/22 16:45 64 22 95 03/29/22 16:30 72 16 98 03/29/22 16:15 64 23 92 L 03/29/22 16:00 97.5 F L 62 14 100 50 03/29/22 15:45 61 17 100 03/29/22 15:30 61 11 L 100 03/29/22 15:15 61 12 92 L 03/29/22 15:12 67 03/29/22 15:01 50 03/29/22 15:00 61 12 125/79 99 03/29/22 14:45 61 21 100 03/29/22 14:40 50 03/29/22 14:35 50 03/29/22 14:30 61 21 100 03/29/22 14:15 61 20 100 Intake and Output 03/29/22 03/30/22 03/30/22 22:59 06:59 14:59 Intake Total 886.893 778.432 371.827 Output Total 833 350 146 Balance 53.893 428.432 225.827 Intake: IV 761 553 343 CO/CI 130 90 20 Lactated Ringers 1,000 ml 450 400 190 @ 50 mls/hr IV .Q20H [facility] Rx#:[id number] Potassium Chloride 20 meq 100 In Water For Injection 1 100ml.bag @ 50 mls/hr IVPB ONCE [facility] Rx#: [id number] Pressure 81 63 33 ceFAZolin 2 gm In Sodium 100 Chloride 0.9% 50 ml @ 100 mls/hr IVPB Q8HR [facility] Rx# :[id number] Intake, IV Titration 125.893 225.432 28.827 Amount Amiodarone 450 mg In 216.393 Dextrose 5% in Water 250 ml @ 0.5 MG/MIN 16.667 mls/hr IV .Q15H [facility] Rx#: [id number] Dexmedetomidine/0.9% NaCl 70.559 (Pmx) 400 mcg In Empty Bag 1 bag @ Titrate IV . Q0M [facility] Rx#:[id number] Insulin Regular 100 unit 25.570 9.039 28.827 In Sodium Chloride 0.9% 100 ml @ Per Protocol IV .Q0M [facility] Rx#:[id number] propofoL 1,000 mg In 29.764 Empty Bag 1 bag @ Titrate IV .Q0M [facility] Rx#: [id number] Output: Chest Tube Drainage 448 90 11 LP/RP 243 40 11 MS 205 50 0 Urine 385 260 135 Other: Voiding Method Indwelling Catheter Indwelling Catheter Indwelling Catheter Weight 71.1 kg 71.1 kg ABP, PAP, CO, CI - Last 8 Hours Arterial Blood Pressure 105/50 Arterial Blood Pressure 98/44 Arterial Blood Pressure 122/55 Arterial Blood Pressure 122/52 Arterial Blood Pressure 117/51 Arterial Blood Pressure 118/55 Arterial Blood Pressure 122/53 Arterial Blood Pressure 123/58 Arterial Blood Pressure 114/53 Arterial Blood Pressure 123/56 Arterial Blood Pressure 114/56 Pulmonary Artery Pressure 32/9 Pulmonary Artery Pressure 29/10 Pulmonary Artery Pressure 30/10 Pulmonary Artery Pressure 29/10 Pulmonary Artery Pressure 30/9 Pulmonary Artery Pressure 26/11 Pulmonary Artery Pressure 25/9 Pulmonary Artery Pressure 27/10 Pulmonary Artery Pressure 29/13 Cardiac Output 5.1 Cardiac Index 2.7 Physical Exam: Revealed 66-year-old white male in no distress head: Atraumatic, normocephalic. HEENT:[Neck is supple.] [No neck masses.] [No thyromegaly.] [No JVD.] Chest: Symmetrical chest expansion, fine crackles at the bases Cardiac Exam: Distant S1 and S2, no S3 gallop. 2/6 systolic murmur thought the precordium Abdomen: [Soft, nontender, no megaly, no rebound, no guarding, normal bowel s ounds.] Extremities: [No clubbing, no edema, no cyanosis.] Neurological Exam: Alert and oriented 3 focal neurologic deficit psychiatric: Normal mood affect and normal mental status examination. Skin: No rash Results - Laboratory Findings CBC and BMP: 03/30/22 03:50 03/30/22 03:50 ABG ABG pH 7.39 (7.35-7.45) 03/29/22 20:17 ABG pCO2 42 mmHg (35-45) 03/29/22 20:17 ABG pO2 137 mmHg (83-108) H 03/29/22 20:17 ABG O2 Saturation 99.2 % (94-97) H 03/29/22 20:17 PT/INR, D-dimer PT 13.5 sec (9.0-12.0) H 03/29/22 13:59 INR 1.3 (<1.2) H 03/29/22 13:59 Abnormal lab findings: Abnormal Labs 03/23/22 03/29/2222 11:30 08:34 09:06 WBC RBC Hgb Hct RDW Plt Count Lymphocytes # PT INR APTT ABG pH 7.48 H 7.46 H ABG pCO2 ABG pO2 199 H 145 H ABG HCO3 31 H 31 H ABG Total CO2 33 H 33 H ABG O2 Saturation 99.6 H 99.2 H ABG Hematocrit 32 L 31 L ABG Potassium ABG Ionized Calcium ABG Glucose 109 H ABG Lactic Acid 0.4 L Hemoglobin 10.4 L 10.2 L Sodium BUN Creatinine Glucose POC Glucose (mg/dL) Calcium AST Total Protein Albumin Arterial Blood Potassium Arterial Blood Glucose 109 H Crossmatch See Detail 03/29/22 03/29/22 03/29/22 10:26 10:58 11:30 WBC RBC Hgb Hct RDW Plt Count Lymphocytes # PT INR APTT ABG pH 7.50 H 7.52 H ABG pCO2 50 H ABG pO2 313 H 325 H 294 H ABG HCO3 29 H 31 H 30 H ABG Total CO2 30 H 32 H 31 H ABG O2 Saturation 100.0 H 100.0 H 100.0 H ABG Hematocrit 25 L 24 L 24 L ABG Potassium ABG Ionized Calcium 4.0 L 4.3 L 4.2 L ABG Glucose 143 H 134 H 150 H ABG Lactic Acid Hemoglobin 8.1 L 7.9 L 7.7 L Sodium BUN Creatinine Glucose POC Glucose (mg/dL) Calcium AST Total Protein Albumin Arterial Blood Potassium Arterial Blood Glucose 143 H 134 H 150 H Crossmatch 03/29/22 03/29/22 03/29/22 12:44 13:51 13:59 WBC 3.7 L RBC 2.64 L Hgb 7.7 L Hct 23.0 L RDW 18.2 H Plt Count 80 L Lymphocytes # 0.6 L PT INR APTT ABG pH ABG pCO2 ABG pO2 110 H ABG HCO3 28 H ABG Total CO2 30 H ABG O2 Saturation 98.4 H ABG Hematocrit 24 L ABG Potassium 3.3 L ABG Ionized Calcium ABG Glucose 147 H ABG Lactic Acid 1.9 H Hemoglobin 7.9 L Sodium BUN Creatinine Glucose POC Glucose (mg/dL) 125 H Calcium AST Total Protein Albumin Arterial Blood Potassium 3.3 L Arterial Blood Glucose 147 H Crossmatch 03/29/22 03/29/22 03/29/22 13:59 13:59 14:00 WBC RBC Hgb Hct RDW Plt Count Lymphocytes # PT 13.5 H INR 1.3 H APTT 34.9 H ABG pH ABG pCO2 ABG pO2 ABG HCO3 ABG Total CO2 ABG O2 Saturation ABG Hematocrit ABG Potassium ABG Ionized Calcium ABG Glucose ABG Lactic Acid Hemoglobin Sodium 136 L BUN 7 L Creatinine 0.55 L Glucose 120 H POC Glucose (mg/dL) 138 H Calcium 8.2 L AST 97 H Total Protein 4.3 L Albumin 2.5 L Arterial Blood Potassium Arterial Blood Glucose Crossmatch 03/29/22 03/29/22 03/29/22 14:21 15:13 16:00 WBC RBC 2.84 L Hgb 8.3 L Hct 24.8 L RDW 18.2 H Plt Count 96 L Lymphocytes # 0.4 L PT INR APTT ABG pH 7.47 H ABG pCO2 ABG pO2 133 H ABG HCO3 27 H ABG Total CO2 28 H ABG O2 Saturation 99.0 H ABG Hematocrit ABG Potassium ABG Ionized Calcium ABG Glucose ABG Lactic Acid Hemoglobin Sodium BUN Creatinine Glucose POC Glucose (mg/dL) 167 H Calcium AST Total Protein Albumin Arterial Blood Potassium Arterial Blood Glucose Crossmatch 03/29/22 03/29/22 03/29/22 16:05 17:56 19:09 WBC RBC Hgb Hct RDW Plt Count Lymphocytes # PT INR APTT ABG pH ABG pCO2 ABG pO2 ABG HCO3 ABG Total CO2 ABG O2 Saturation ABG Hematocrit ABG Potassium ABG Ionized Calcium ABG Glucose ABG Lactic Acid Hemoglobin Sodium BUN Creatinine Glucose POC Glucose (mg/dL) 183 H 179 H 159 H Calcium AST Total Protein Albumin Arterial Blood Potassium Arterial Blood Glucose Crossmatch 03/29/22 03/29/22 03/29/22 19:46 20:03 20:17 WBC RBC 2.82 L Hgb 8.3 L Hct 24.9 L RDW 18.2 H Plt Count 92 L Lymphocytes # 0.3 L PT INR APTT ABG pH ABG pCO2 ABG pO2 137 H ABG HCO3 ABG Total CO2 26 H ABG O2 Saturation 99.2 H ABG Hematocrit ABG Potassium ABG Ionized Calcium ABG Glucose ABG Lactic Acid Hemoglobin Sodium BUN Creatinine Glucose POC Glucose (mg/dL) 143 H Calcium AST Total Protein Albumin Arterial Blood Potassium Arterial Blood Glucose Crossmatch 03/29/22 03/29/22 03/29/22 20:56 21:55 22:54 WBC RBC Hgb Hct RDW Plt Count Lymphocytes # PT INR APTT ABG pH ABG pCO2 ABG pO2 ABG HCO3 ABG Total CO2 ABG O2 Saturation ABG Hematocrit ABG Potassium ABG Ionized Calcium ABG Glucose ABG Lactic Acid Hemoglobin Sodium BUN Creatinine Glucose POC Glucose (mg/dL) 137 H 138 H 143 H Calcium AST Total Protein Albumin Arterial Blood Potassium Arterial Blood Glucose Crossmatch 03/29/22 03/30/22 03/30/22 23:55 01:09 02:11 WBC RBC Hgb Hct RDW Plt Count Lymphocytes # PT INR APTT ABG pH ABG pCO2 ABG pO2 ABG HCO3 ABG Total CO2 ABG O2 Saturation ABG Hematocrit ABG Potassium ABG Ionized Calcium ABG Glucose ABG Lactic Acid Hemoglobin Sodium BUN Creatinine Glucose POC Glucose (mg/dL) 130 H 123 H 123 H Calcium AST Total Protein Albumin Arterial Blood Potassium Arterial Blood Glucose Crossmatch 03/30/22 03/30/22 03/30/22 03:05 03:50 03:50 WBC RBC 2.61 L Hgb 7.6 L Hct 22.9 L RDW 18.2 H Plt Count 85 L Lymphocytes # 0.4 L PT INR APTT ABG pH ABG pCO2 ABG pO2 ABG HCO3 ABG Total CO2 ABG O2 Saturation ABG Hematocrit ABG Potassium ABG Ionized Calcium ABG Glucose ABG Lactic Acid Hemoglobin Sodium 135 L BUN Creatinine 0.56 L Glucose 103 H POC Glucose (mg/dL) 123 H Calcium 8.1 L AST 106 H Total Protein 4.7 L Albumin 2.9 L Arterial Blood Potassium Arterial Blood Glucose Crossmatch 03/30/22 03/30/22 03/30/22 03:53 05:03 05:57 WBC RBC Hgb Hct RDW Plt Count Lymphocytes # PT INR APTT ABG pH ABG pCO2 ABG pO2 ABG HCO3 ABG Total CO2 ABG O2 Saturation ABG Hematocrit ABG Potassium ABG Ionized Calcium ABG Glucose ABG Lactic Acid Hemoglobin Sodium BUN Creatinine Glucose POC Glucose (mg/dL) 116 H 116 H 115 H Calcium AST Total Protein Albumin Arterial Blood Potassium Arterial Blood Glucose Crossmatch 03/30/22 03/30/22 03/30/22 06:55 08:56 09:06 WBC RBC Hgb Hct RDW Plt Count Lymphocytes # PT INR APTT ABG pH ABG pCO2 ABG pO2 ABG HCO3 ABG Total CO2 ABG O2 Saturation ABG Hematocrit ABG Potassium ABG Ionized Calcium ABG Glucose ABG Lactic Acid Hemoglobin Sodium BUN Creatinine Glucose POC Glucose (mg/dL) 118 H 113 H 113 H Calcium AST Total Protein Albumin Arterial Blood Potassium Arterial Blood Glucose Crossmatch 03/30/22 03/30/22 03/30/22 10:18 10:54 12:00 WBC RBC Hgb Hct RDW Plt Count Lymphocytes # PT INR APTT ABG pH ABG pCO2 ABG pO2 ABG HCO3 ABG Total CO2 ABG O2 Saturation ABG Hematocrit ABG Potassium ABG Ionized Calcium ABG Glucose ABG Lactic Acid Hemoglobin Sodium BUN Creatinine Glucose POC Glucose (mg/dL) 137 H 132 H 125 H Calcium AST Total Protein Albumin Arterial Blood Potassium Arterial Blood Glucose Crossmatch - Diagnostic Findings Chest x-ray: image reviewed (As noted in HPI) Assessment and Plan Assessment: Impression: Status post aortic valve replacement, mitral valve repair and closure of patent foramen ovale, postoperative day #1. Benign essential hypertension Chronic atrial fibrillation Tobacco dependence syndrome Dyslipidemia Opioid dependence Myeloproliferative disorder Recommendation: Continue incentive spirometry Early ambulation Continue amiodarone Increase activity and ambulate as tolerated Resume home meds Discontinue unnecessary lines and catheters as well as tubes We'll continue to follow Time with Patient: Greater than 30
--- NOTE | 2022-03-30 14:17 | XR ---
EXAMINATION TYPE: XR chest 1V portable DATE OF EXAM: 03/30/2022 COMPARISON: 03/29/2022 INDICATION: Postop cardiac surgery TECHNIQUE: Single frontal view of the chest is obtained. FINDINGS: The heart size is mildly prominent. The pulmonary vasculature is within normal limits. [employer]iki catheter is present with the tip in the main pulmonary artery region. Mediastinal tube is p resent. A chest tube is present with the tip directed towards the left lateral chest. No pneumothora x is evident. There is silhouetting the left diaphragm. Retrocardiac infiltration considered. IMPRESSION: 1. Mild cardiomegaly. 2. Left retrocardiac infiltrate is not excluded. Correlate for atelectasis or pneumonia.
[2022-03-30 15:08] LABS: Glucose,Whole Blood 106 mg/dL (70-110)
[2022-03-30 17:05] LABS: Glucose,Whole Blood 118 mg/dL (70-110)
[2022-03-30 18:08] LABS: Glucose,Whole Blood 133 mg/dL (70-110)
[2022-03-30 19:02] LABS: Glucose,Whole Blood 138 mg/dL (70-110)
[2022-03-30] MEDS: SENNOSIDES-DOCUSATE SODIUM 1 EACH TAB PO SCH (19:55)
[2022-03-30 20:33] LABS: Glucose,Whole Blood 115 mg/dL (70-110)
[2022-03-30 22:15] LABS: Glucose,Whole Blood 116 mg/dL (70-110)
[2022-03-30 23:16] LABS: Glucose,Whole Blood 112 mg/dL (70-110)
[2022-03-31 00:23] LABS: Glucose,Whole Blood 126 mg/dL (70-110)
[2022-03-31] MEDS: fentaNYL (PF) 50 MCG/ML 2 ML AMP IVP PRN ×3 (00:27→09:47)
[2022-03-31 01:20] LABS: Glucose,Whole Blood 111 mg/dL (70-110)
[2022-03-31 02:26] LABS: Glucose,Whole Blood 122 mg/dL (70-110)
[2022-03-31] MEDS: HYDROcodone/APAP 10-325MG 1 EACH TAB PO PRN ×5 (03:08→22:27)
[2022-03-31 03:22] LABS: Glucose,Whole Blood 115 mg/dL (70-110)
[2022-03-31 04:23] LABS: Glucose,Whole Blood 115 mg/dL (70-110)
[2022-03-31 04:44] LABS: Anisocytosis Slight; Basophils % (A) 0 %; Eosinophils % (A) 0 %; HCT 20.6 % (39.0-53.0); Lymphocytes # (A) 0.6 k/uL (1.0-4.8); Lymphocytes % (A) 8 %; MCH 29.7 pg (25.0-35.0); MCHC 33.1 g/dL (31.0-37.0); MCV 89.8 fL (80.0-100.0); Mean Platelet Volume 10.6; Monocytes # (A) 0.3 k/uL (0-1.0); Monocytes % (A) 5 %; Neutrophils # (A) 5.6 k/uL (1.3-7.7); Neutrophils % (A) 84 %; RBC 2.29 m/uL (4.30-5.90); RDW 18.7 % (11.5-15.5); WBC 6.6 k/uL (3.8-10.6)
[2022-03-31 04:47] LABS: Ionized Calcium 4.8 mg/dL (4.5-5.3)
[2022-03-31 05:02] LABS: Platelet Count 75 k/uL (150-450)
[2022-03-31 05:05] LABS: HGB 6.8 gm/dL (13.0-17.5)
[2022-03-31 05:17] LABS: Glucose,Whole Blood 110 mg/dL (70-110)
[2022-03-31 05:27] LABS: Anisocytosis Slight; HCT 20.7 % (39.0-53.0); MCH 28.8 pg (25.0-35.0); MCHC 32.5 g/dL (31.0-37.0); MCV 88.5 fL (80.0-100.0); Microcytosis Slight; RBC 2.33 m/uL (4.30-5.90); RDW 18.6 % (11.5-15.5); WBC 6.9 k/uL (3.8-10.6)
[2022-03-31 05:37] LABS: HGB 6.7 gm/dL (13.0-17.5); Platelet Count 74 k/uL (150-450)
[2022-03-31 05:44] LABS: ALT 12 U/L (4-49); AST 70 U/L (17-59); African American GFR (CKD) >90 (>60 ml/min/1.73 sqM); Albumin 3.2 g/dL (3.5-5.0); Alkaline Phosphatase 47 U/L (38-126); Anion Gap 4 mmol/L; Blood Urea Nitrogen 11 mg/dL (9-20); Calcium 8.3 mg/dL (8.4-10.2); Carbon Dioxide 30 mmol/L (22-30); Chloride 100 mmol/L (98-107); Glucose 100 mg/dL (74-99); Non-African American GFR(CKD) >90 (>60 ml/min/1.73 sqM); Sodium 134 mmol/L (137-145); Total Bilirubin 0.3 mg/dL (0.2-1.3)
[2022-03-31] MEDS: LACTATED RINGERS 1,000 ML IV SCH (05:51)
[2022-03-31] MEDS ORDERED: FUROSEMIDE 10 MG/ML 2 ML VIAL IV ONE (06:00)
[2022-03-31 06:28] LABS: Glucose,Whole Blood 132 mg/dL (70-110)
[2022-03-31] MEDS: ASCORBIC ACID 500 MG TAB PO SCH ×2 (07:05→18:24)
[2022-03-31] MEDS: PANTOPRAZOLE 40 MG TABLET PO SCH (07:05)
[2022-03-31] MEDS: FERROUS SULFATE 325 MG TAB PO SCH ×2 (07:05→18:24)
[2022-03-31 07:10] LABS: Glucose,Whole Blood 120 mg/dL (70-110)
[2022-03-31] MEDS: IPRATROPIUM-ALBUTEROL 3 ML NEB INHALATION SCH ×4 (07:20→20:03)
--- NOTE | 2022-03-31 07:22 | XR ---
EXAMINATION TYPE: XR chest 1V portable DATE OF EXAM: 03/31/2022 Comparison: 03/30/2022 Clinical History: 66-year-old male Post Operative Cardiac Surgery Findings: Median sternotomy wires are present. Mediastinal drain. Bilateral chest tubes. Possible trace size mm left apical pneumothorax now. Interstitial prominence. Heart borderline enlarged. Patchy retrocardia c opacity and probable trace left effusion. Aeration is similar to minimally worsened at the lower missy ngs. Right IJ sheath remains in place with removal of the [place]-Riki catheter. Impression: 1. Bilateral chest tubes. A trace 5 mm left apical pneumothorax is now seen. 2. Interstitial prominence is similar. Possible mild pulmonary vascular congestion. 3. Similar to increasing patchy retrocardiac atelectasis and possible trace left effusion.
[2022-03-31 07:57] LABS: Glucose,Whole Blood 134 mg/dL (70-110)
[2022-03-31] MEDS: HEPARIN SODIUM,PORCINE/PF 5,000 UNIT/0.5 ML SYRINGE SQ SCH ×2 (08:07→16:37)
--- NOTE | 2022-03-31 08:18 | P.PN ---
Subjective Progress Note Date: 03/31/22 Principal diagnosis: Severe aortic insufficiency, severe mitral regurgitation, patent foramen ovale, persistent atrial fibrillation. Previous medical history of hypertension, hype rlipidemia, previous tobacco dependence, opioid dependence on Suboxone outpatient, and preoperative myeloproliferative disorder with chronic leukopenia, anemia, and thrombocytopenia POD#2 aortic valve replacement with a #25 mm Medtronic Avalus bioprosthetic aortic valve, mitral valve repair with a #30 mm Carbo[employer] AnnuloFlex band, closure of patent foramen ovale, complete left-sided maze using radiofrequency and cryo energy sources, clip ligation of the left atrial appendage with a 35 mm AtriClip, intraoperative transesophageal echocardiogram Postoperative acute blood loss anemia and thrombocytopenia expected given hemodilution, cardiopulmonary bypass pump, and preoperative anemia The patient was seen and examined this morning sitting up in a recliner in the intensive care unit in no acute distress. Currently in sinus rhythm with heart rate in high 60s-low 70s. Hemodynamically stable on no inotropes or pressors. Patient's only complaint is post surgical pain, lack of sleep. He did ambulate in hallway yesterday with assistance. Hemaglobin this morning 6.7, he will get 1 unit PRBCs followed by 20 mg IVP lasix. Right internal jugular Cordis, left radial arterial line, mediastinal/left/right pleural chest tubes all remaining present. No other new concerns. Objective - Vital Signs Vital signs: Vital Signs Temp 100.1 F H 03/31/22 04:00 Pulse 71 03/31/22 07:27 Resp 14 03/31/22 07:00 BP 112/70 03/31/22 06:00 Pulse Ox 96 03/31/22 07:22 FiO2 50 03/29/22 20:30 Intake & Output 03/30/22 03/31/22 03/31/22 18:59 06:59 18:59 Intake Total 693.827 636.384 56.859 Output Total 427 468 20 Balance 266.827 168.384 36.859 Weight 71.1 kg 79.1 kg Intake: IV 665 622 56 CO/CI 20 Lactated Ringers 1,000 ml 470 550 50 @ 50 mls/hr IV .Q20H [facility] Rx#:[id number] Pressure 75 72 6 ceFAZolin 2 gm In Sodium 100 Chloride 0.9% 50 ml @ 100 mls/hr IVPB Q8HR [facility] Rx# :[id number] Intake, IV Titration 28.827 14.384 0.859 Amount Insulin Regular 100 unit 28.827 14.384 0.859 In Sodium Chloride 0.9% 100 ml @ Per Protocol IV .Q0M [facility] Rx#:[id number] Output: Chest Tube Drainage 72 87 LP/RP 32 40 MS 40 47 Urine 355 381 20 Other: Voiding Method Indwelling Catheter Indwelling Catheter ABP, PAP, CO, CI - Last Documented Arterial Blood Pressure 94/47 Pulmonary Artery Pressure 32/9 Cardiac Output 5.6 Cardiac Index 3 - Exam CONSTITUTIONAL: Appears comfortable, cooperative, no acute distress RESPIRATORY: Lungs sounds diminished bilaterally. Respirations even, nonlabore d. Currently on 2 L nasal cannula with oxygen saturation 95%. Able to achieve 1000 mL on incentive spirometry. Strong cough. CARDIOVASCULAR: S1, S2 present. Regular rate and rhythm, sinus rhythm on telemetry. Sternum stable. Palpable peripheral pulses bilaterally. No edema present. No calf pain or tenderness noted. Heart hugger in place with patient demonstrating appropriate use. Antiembolism stockings, SCDs present. GASTROINTESTINAL: Abdomen soft, nontender, nondistended. Hypoactive bowel sounds present 4 quadrants. Tolerating clear liquids. Denies flatus, positive belching GENITOURINARY: Cain present draining clear, yellow urine. Output overnight 25-40 mL per hour, 736 ml in the last 24 hours INTEGUMENTARY: Skin is warm and dry with evidence of good perfusion. Anterior chest incision well approximated and covered with dry intact dressing NEUROLOGIC: Cranial nerves II through XII intact MUSKULOSKELETAL: Able to move all extremities, strength equal bilaterally, gait normal PSYCHIATRIC: Alert and oriented to person place and time, appropriate affect, intact judgment and insight INVASIVE LINES AND TUBES: Mediastinal/left/right pleural chest tubes present a nd connected to wall suction, no air leaks present. Mediastinal tube with 37 mL serosanguineous drainage overnight, 150 mL in the last 24 hours. Left/right pleural chest tubes with 40 mL serosanguineous drainage overnight, 75 mL in the last 24 hours. A/V epicardial pacemaker wires present, connected to generator, AAI mode with backup rate 50 bpm. Right internal jugular Cordis, left radial arterial line present. - Allied health notes Allied health notes reviewed: nursing - Labs CBC & Chem 7: 03/31/22 05:18 03/31/22 04:25 Labs: Abnormal Lab Results - Last 24 Hours (Table) 03/30/22 03/30/22 03/30/22 Range/Units 08:56 09:06 10:18 RBC (4.30-5.90) m/uL Hgb (13.0-17.5) gm/dL Hct (39.0-53.0) % RDW (11.5-15.5) % Plt Count (150-450) k/uL Lymphocytes # (1.0-4.8) k/uL Sodium (137-145) mmol/L Creatinine (0.66-1.25) mg/dL Glucose (74-99) mg/dL POC Glucose (mg/dL) 113 H 113 H 137 H (70-110) mg/dL Calcium (8.4-10.2) mg/dL AST (17-59) U/L Total Protein (6.3-8.2) g/dL Albumin (3.5-5.0) g/dL Crossmatch 03/30/22 03/30/22 03/30/22 Range/Units 10:54 12:00 17:04 RBC (4.30-5.90) m/uL Hgb (13.0-17.5) gm/dL Hct (39.0-53.0) % RDW (11.5-15.5) % Plt Count (150-450) k/uL Lymphocytes # (1.0-4.8) k/uL Sodium (137-145) mmol/L Creatinine (0.66-1.25) mg/dL Glucose (74-99) mg/dL POC Glucose (mg/dL) 132 H 125 H 118 H (70-110) mg/dL Calcium (8.4-10.2) mg/dL AST (17-59) U/L Total Protein (6.3-8.2) g/dL Albumin (3.5-5.0) g/dL Crossmatch 03/30/22 03/30/22 03/30/22 Range/Units 18:06 18:59 20:31 RBC (4.30-5.90) m/uL Hgb (13.0-17.5) gm/dL Hct (39.0-53.0) % RDW (11.5-15.5) % Plt Count (150-450) k/uL Lymphocytes # (1.0-4.8) k/uL Sodium (137-145) mmol/L Creatinine (0.66-1.25) mg/dL Glucose (74-99) mg/dL POC Glucose (mg/dL) 133 H 138 H 115 H (70-110) mg/dL Calcium (8.4-10.2) mg/dL AST (17-59) U/L Total Protein (6.3-8.2) g/dL Albumin (3.5-5.0) g/dL Crossmatch 03/30/22 03/30/22 03/31/22 Range/Units 22:14 23:14 00:09 RBC (4.30-5.90) m/uL Hgb (13.0-17.5) gm/dL Hct (39.0-53.0) % RDW (11.5-15.5) % Plt Count (150-450) k/uL Lymphocytes # (1.0-4.8) k/uL Sodium (137-145) mmol/L Creatinine (0.66-1.25) mg/dL Glucose (74-99) mg/dL POC Glucose (mg/dL) 116 H 112 H 126 H (70-110) mg/dL Calcium (8.4-10.2) mg/dL AST (17-59) U/L Total Protein (6.3-8.2) g/dL Albumin (3.5-5.0) g/dL Crossmatch 03/31/22 03/31/22 03/31/22 Range/Units 01:16 02:23 03:19 RBC (4.30-5.90) m/uL Hgb (13.0-17.5) gm/dL Hct (39.0-53.0) % RDW (11.5-15.5) % Plt Count (150-450) k/uL Lymphocytes # (1.0-4.8) k/uL Sodium (137-145) mmol/L Creatinine (0.66-1.25) mg/dL Glucose (74-99) mg/dL POC Glucose (mg/dL) 111 H 122 H 115 H (70-110) mg/dL Calcium (8.4-10.2) mg/dL AST (17-59) U/L Total Protein (6.3-8.2) g/dL Albumin (3.5-5.0) g/dL Crossmatch 03/31/22 03/31/22 03/31/22 Range/Units 04:22 04:25 04:25 RBC 2.29 L (4.30-5.90) m/uL Hgb 6.8 L* (13.0-17.5) gm/dL Hct 20.6 L (39.0-53.0) % RDW 18.7 H (11.5-15.5) % Plt Count 75 L (150-450) k/uL Lymphocytes # 0.6 L (1.0-4.8) k/uL Sodium 134 L (137-145) mmol/L Creatinine 0.53 L (0.66-1.25) mg/dL Glucose 100 H (74-99) mg/dL POC Glucose (mg/dL) 115 H (70-110) mg/dL Calcium 8.3 L (8.4-10.2) mg/dL AST 70 H (17-59) U/L Total Protein 5.0 L (6.3-8.2) g/dL Albumin 3.2 L (3.5-5.0) g/dL Crossmatch 03/31/22 03/31/22 03/31/22 Range/Units 05:18 06:15 06:26 RBC 2.33 L (4.30-5.90) m/uL Hgb 6.7 L* (13.0-17.5) gm/dL Hct 20.7 L (39.0-53.0) % RDW 18.6 H (11.5-15.5) % Plt Count 74 L (150-450) k/uL Lymphocytes # (1.0-4.8) k/uL Sodium (137-145) mmol/L Creatinine (0.66-1.25) mg/dL Glucose (74-99) mg/dL POC Glucose (mg/dL) 132 H (70-110) mg/dL Calcium (8.4-10.2) mg/dL AST (17-59) U/L Total Protein (6.3-8.2) g/dL Albumin (3.5-5.0) g/dL Crossmatch See Detail 03/31/22 Range/Units 07:09 RBC (4.30-5.90) m/uL Hgb (13.0-17.5) gm/dL Hct (39.0-53.0) % RDW (11.5-15.5) % Plt Count (150-450) k/uL Lymphocytes # (1.0-4.8) k/uL Sodium (137-145) mmol/L Creatinine (0.66-1.25) mg/dL Glucose (74-99) mg/dL POC Glucose (mg/dL) 120 H (70-110) mg/dL Calcium (8.4-10.2) mg/dL AST (17-59) U/L Total Protein (6.3-8.2) g/dL Albumin (3.5-5.0) g/dL Crossmatch - Imaging and Cardiology Chest x-ray: report reviewed, image reviewed Assessment and Plan Assessment: 1. Severe aortic insufficiency, status post aortic valve replacement 2. Severe mitral regurgitation, status post mitral valve repair 3. Patent foramen ovale, status post closure 4. Persistent atrial fibrillation, status post complete left-sided maze using radiofrequency and cryo energy sources, clip ligation of the left atrial appendage 5. History of hypertension 6. History of hyperlipidemia, treated, cholesterol 120, LDL 43 7. Previous tobacco dependence, preoperative FEV1 70% of predicted 8. Opioid dependence on Suboxone outpatient 9. Preoperative myeloproliferative disorder with chronic leukopenia, anemia, and thrombocytopenia 10. Postoperative acute blood loss anemia and thrombocytopenia Plan: 1. Continue to maximize medical therapy with full strength aspirin, statin, beta ralph therapy. Increase beta ralph therapy as tolerated 2. Continue amiodarone for A. fib prophylaxis 3. Wean O2 as tolerated. Encourage incentive spirometry 10 times every hour while awake. Bronchodilators per pulmonology 4. Increase activity, ambulate as tolerated. PT/OT/cardiac rehab consulted 5. Will monitor daily labs and CXR. Electrolyte replacement per protocol. Will give 1 unit PRBCs followed by 20 mg IVP lasix 6. Pain control with current medication regimen. Patient to continue Suboxone as per his home dose with added pain medication which will be titrated accordingly 7. Insulin management per internal medicine. Patient is not diabetic, preoperative hemaglobin A1c 5.5% 8. Discontinue cordis this afternoon 9. Will discontinue epicardial pacer wires, patient to remain on bedrest for 1 hours post 10. Will discontinue all chest tubes 11. Will discontinue cain after diuresis, may bladder scan and straight cath for >300 mL residual 12. Strict accurate intake and output. Daily weights 13. Will keep in ICU for 1 more day 14. More recommendations to follow
[2022-03-31] MEDS: ASPIRIN 325 MG TAB PO SCH (09:14)
[2022-03-31] MEDS: LORazepam 0.5 MG TAB PO SCH ×2 (09:14→23:10)
[2022-03-31] MEDS: ESCITALOPRAM 20 MG TAB PO SCH (09:14)
[2022-03-31] MEDS: AMIODARONE 200 MG TAB PO SCH ×2 (09:15→20:38)
[2022-03-31] MEDS: ATORVASTATIN 20 MG TAB PO SCH (09:15)
[2022-03-31] MEDS: MUPIROCIN 2% OINT 22 GM TUBE NASAL SCH ×2 (09:27→22:28)
--- NOTE | 2022-03-31 09:54 | P.PN ---
Subjective Progress Note Date: 03/31/22 Patient is postop day #2 for a aortic valve replacement with Medtronic Avalus valve, mitral valve repair, closure of patent foramen ovale, clip ligation of the left atrial appendage with a 35 mm AtriClip. She has a known history of severe aortic insufficiency, severe mitral regurgitation, patent foramen ovale, and persistent atrial fibrillation, hypertension hyperlipidemia, previous tobacco dependence, opioid dependence on Suboxone outpatient, and preoperative myeloproliferative disorder with chronic leukopenia, anemia, and thrombocytopenia. Patient follows with Dr. Hampton office. He did have an episode of atrial fibrillation patient was started on amiodarone drip. hemoglobin today is 6.7 and platelets 74. Postoperative acute anemia and thrombocytopenia expected due to hemodilution, cardiopulmonary bypass pump, and preoperative anemia. Patient will receive one unit of packed red blood cells followed by a dose of IV Lasix. he seen resting comfortably in the chair today. No complaints of chest pain or shortness of breath, his only complaint is sternum surgical pain. Patient was up in the daly ambulating yesterday. Patient remains in sinus rhythm with a controlled ventricular rate. Plan will be to remove lines and pleural chest tubes today. Objective - Vital Signs Vital signs: Vital Signs Temp 98.5 F 03/31/22 09:31 Pulse 77 03/31/22 09:31 Resp 17 03/31/22 09:31 BP 96/55 03/31/22 09:31 Pulse Ox 96 03/31/22 09:31 FiO2 50 03/29/22 20:30 Intake & Output 03/30/22 03/31/22 03/31/22 18:59 06:59 18:59 Intake Total 693.827 636.384 158.859 Output Total 427 468 90 Balance 266.827 168.384 68.859 Weight 71.1 kg 79.1 kg Intake: IV 665 622 158 CO/CI 20 Lactated Ringers 1,000 ml 470 550 140 @ 20 mls/hr IV .Q24H [facility] Rx#:[id number] Pressure 75 72 18 ceFAZolin 2 gm In Sodium 100 Chloride 0.9% 50 ml @ 100 mls/hr IVPB Q8HR [facility] Rx# :[id number] Intake, IV Titration 28.827 14.384 0.859 Amount Insulin Regular 100 unit 28.827 14.384 0.859 In Sodium Chloride 0.9% 100 ml @ Per Protocol IV .Q0M [facility] Rx#:[id number] Blood Product 0 Unit 0 Output: Chest Tube Drainage 72 87 15 LP/RP 32 40 5 MS 40 47 10 Urine 355 381 75 Other: Voiding Method Indwelling Catheter Indwelling Catheter ABP, PAP, CO, CI - Last Documented Arterial Blood Pressure 95/48 Pulmonary Artery Pressure 32/9 Cardiac Output 5.6 Cardiac Index 3 - Exam PHYSICAL EXAM: VITAL SIGNS: Reviewed. GENERAL: Well-developed in no acute distress. HEENT: Head is normocephalic. Pupils are equal, round. Sclerae anicteric. Mucous membranes of the mouth are moist. NECK: Supple. No JVD or thyromegaly RESPIRATORY: Respirations even and unlabored. Lungs diminished to auscultation bilaterally. CARDIO: Regular rate and rhythm. S1 and S2 heard. No murmur or gallops. EXTREMITIES: Normal range of motion. No clubbing or cyanosis. Peripheral pulses intact. Negative for bilateral lower extremity edema NEURO: Orientated to person, time, mood is appropriate - Labs CBC & Chem 7: 03/31/22 05:18 03/31/22 04:25 Labs: Abnormal Lab Results - Last 24 Hours (Table) 03/30/22 03/30/22 03/30/22 Range/Units 10:18 10:54 12:00 RBC (4.30-5.90) m/uL Hgb (13.0-17.5) gm/dL Hct (39.0-53.0) % RDW (11.5-15.5) % Plt Count (150-450) k/uL Lymphocytes # (1.0-4.8) k/uL Sodium (137-145) mmol/L Creatinine (0.66-1.25) mg/dL Glucose (74-99) mg/dL POC Glucose (mg/dL) 137 H 132 H 125 H (70-110) mg/dL Calcium (8.4-10.2) mg/dL AST (17-59) U/L Total Protein (6.3-8.2) g/dL Albumin (3.5-5.0) g/dL Crossmatch 03/30/22 03/30/22 03/30/22 Range/Units 17:04 18:06 18:59 RBC (4.30-5.90) m/uL Hgb (13.0-17.5) gm/dL Hct (39.0-53.0) % RDW (11.5-15.5) % Plt Count (150-450) k/uL Lymphocytes # (1.0-4.8) k/uL Sodium (137-145) mmol/L Creatinine (0.66-1.25) mg/dL Glucose (74-99) mg/dL POC Glucose (mg/dL) 118 H 133 H 138 H (70-110) mg/dL Calcium (8.4-10.2) mg/dL AST (17-59) U/L Total Protein (6.3-8.2) g/dL Albumin (3.5-5.0) g/dL Crossmatch 03/30/22 03/30/22 03/30/22 Range/Units 20:31 22:14 23:14 RBC (4.30-5.90) m/uL Hgb (13.0-17.5) gm/dL Hct (39.0-53.0) % RDW (11.5-15.5) % Plt Count (150-450) k/uL Lymphocytes # (1.0-4.8) k/uL Sodium (137-145) mmol/L Creatinine (0.66-1.25) mg/dL Glucose (74-99) mg/dL POC Glucose (mg/dL) 115 H 116 H 112 H (70-110) mg/dL Calcium (8.4-10.2) mg/dL AST (17-59) U/L Total Protein (6.3-8.2) g/dL Albumin (3.5-5.0) g/dL Crossmatch 03/31/22 03/31/22 03/31/22 Range/Units 00:09 01:16 02:23 RBC (4.30-5.90) m/uL Hgb (13.0-17.5) gm/dL Hct (39.0-53.0) % RDW (11.5-15.5) % Plt Count (150-450) k/uL Lymphocytes # (1.0-4.8) k/uL Sodium (137-145) mmol/L Creatinine (0.66-1.25) mg/dL Glucose (74-99) mg/dL POC Glucose (mg/dL) 126 H 111 H 122 H (70-110) mg/dL Calcium (8.4-10.2) mg/dL AST (17-59) U/L Total Protein (6.3-8.2) g/dL Albumin (3.5-5.0) g/dL Crossmatch 03/31/22 03/31/22 03/31/22 Range/Units 03:19 04:22 04:25 RBC 2.29 L (4.30-5.90) m/uL Hgb 6.8 L* (13.0-17.5) gm/dL Hct 20.6 L (39.0-53.0) % RDW 18.7 H (11.5-15.5) % Plt Count 75 L (150-450) k/uL Lymphocytes # 0.6 L (1.0-4.8) k/uL Sodium (137-145) mmol/L Creatinine (0.66-1.25) mg/dL Glucose (74-99) mg/dL POC Glucose (mg/dL) 115 H 115 H (70-110) mg/dL Calcium (8.4-10.2) mg/dL AST (17-59) U/L Total Protein (6.3-8.2) g/dL Albumin (3.5-5.0) g/dL Crossmatch 03/31/22 03/31/22 03/31/22 Range/Units 04:25 05:18 06:15 RBC 2.33 L (4.30-5.90) m/uL Hgb 6.7 L* (13.0-17.5) gm/dL Hct 20.7 L (39.0-53.0) % RDW 18.6 H (11.5-15.5) % Plt Count 74 L (150-450) k/uL Lymphocytes # (1.0-4.8) k/uL Sodium 134 L (137-145) mmol/L Creatinine 0.53 L (0.66-1.25) mg/dL Glucose 100 H (74-99) mg/dL POC Glucose (mg/dL) (70-110) mg/dL Calcium 8.3 L (8.4-10.2) mg/dL AST 70 H (17-59) U/L Total Protein 5.0 L (6.3-8.2) g/dL Albumin 3.2 L (3.5-5.0) g/dL Crossmatch See Detail 03/31/22 03/31/22 03/31/22 Range/Units 06:26 07:09 07:54 RBC (4.30-5.90) m/uL Hgb (13.0-17.5) gm/dL Hct (39.0-53.0) % RDW (11.5-15.5) % Plt Count (150-450) k/uL Lymphocytes # (1.0-4.8) k/uL Sodium (137-145) mmol/L Creatinine (0.66-1.25) mg/dL Glucose (74-99) mg/dL POC Glucose (mg/dL) 132 H 120 H 134 H (70-110) mg/dL Calcium (8.4-10.2) mg/dL AST (17-59) U/L Total Protein (6.3-8.2) g/dL Albumin (3.5-5.0) g/dL Crossmatch Assessment and Plan Assessment: Severe aortic insufficiency status post aortic valve replacement Severe mitral regurgitation status post atrial valve repair PFO status post closure device Persistent atrial fibrillation Hypertension. Anemia Thrombocytopenia Plan: Continue with all current cardiac medications Continue with telemetry monitoring Tenuous strict I's and O's and daily weights Continue to increase activity as tolerated Further recommendations based on clinical course The above impression and plan of care have been discussed and directed by the signing physician. Vicky Busch, nurse practitioner, acting as scribe for signing physician.
[2022-03-31] MEDS ORDERED: DEXTROSE 50% SYRINGE 50 ML IVP PRN ×2 (10:12)
[2022-03-31 10:22] LABS: Glucose,Whole Blood 134 mg/dL (70-110)
[2022-03-31] MEDS ORDERED: fentaNYL (PF) 50 MCG/ML 2 ML AMP IVP PRN (11:02)
--- NOTE | 2022-03-31 11:46 | P.PN ---
Subjective Progress Note Date: 03/31/22 Principal diagnosis: Status post aortic valve replacement and mitral valve repair postoperative day #2 POD#1 aortic valve replacement with a #25 mm Medtronic Avalus bioprosthetic aortic valve, mitral valve repair with a #30 mm CarboMedics AnnuloFlex band, closure of patent foramen ovale, complete left-sided maze using radiofrequency and cryo energy sources, clip ligation of the left atrial appendage with a 35 mm AtriClip, intraoperative transesophageal echocardiogram. Patient underwent surgery yesterday, and postoperatively I was made aware of the patient at night, reviewed his ventilator settings, his vent settings were adjusted accordingly to the ABG, and few hours later I was notified about the patient on CPAP, I extubated the patient uneventfully. Patient was evaluated today, he is sitting at a bedside chair, not in any distress. Patient was extubated at 20:31, he is now paced at 70 bpm, has atrial pacing. He is hemodynamically stable, not requiring any pressors. On 2 L nasal cannula with O2 saturation 97%. He is on amiodarone at 0.5 mg/m. Chest x-ray showed minimal left basilar atelectasis. PA pressure is 27/8 CVP is 4, continues to have chest tubes in place Reevaluated today on 03/31/22, patient is sitting up in a recliner, he remains in the ICU, and overall the patient is doing well except he feels quite sore and weak. Chest x-ray showed minimal atelectasis at the bases. His hemoglobin is rather low today at 6.7, and he is to receive 1 unit of packed RBCs today. Continues to have multiple lines including right internal jugular Cordis, he has a mediastinal left and right pleural chest tubes and overall the patient is doing great, is not requiring any pressors not requiring any inotropic. Electrolytes and renal profile are normal. Objective - Vital Signs Vital signs: Vital Signs Temp 98.2 F 03/31/22 11:39 Pulse 73 03/31/22 11:39 Resp 16 03/31/22 11:39 BP 107/58 03/31/22 11:39 Pulse Ox 96 03/31/22 11:39 FiO2 50 03/29/22 20:30 Intake & Output 03/30/22 03/31/22 03/31/22 18:59 06:59 18:59 Intake Total 693.827 636.384 468.859 Output Total 427 468 90 Balance 266.827 168.384 378.859 Weight 71.1 kg 79.1 kg Intake: IV 665 622 158 CO/CI 20 Lactated Ringers 1,000 ml 470 550 140 @ 20 mls/hr IV .Q24H [facility] Rx#:[id number] Pressure 75 72 18 ceFAZolin 2 gm In Sodium 100 Chloride 0.9% 50 ml @ 100 mls/hr IVPB Q8HR [facility] Rx# :[id number] Intake, IV Titration 28.827 14.384 0.859 Amount Insulin Regular 100 unit 28.827 14.384 0.859 In Sodium Chloride 0.9% 100 ml @ Per Protocol IV .Q0M [facility] Rx#:[id number] Blood Product 310 Rc As-1 Unit 310 [id number] Output: Chest Tube Drainage 72 87 15 LP/RP 32 40 5 MS 40 47 10 Urine 355 381 75 Other: Voiding Method Indwelling Catheter Indwelling Catheter ABP, PAP, CO, CI - Last Documented Arterial Blood Pressure 95/48 Pulmonary Artery Pressure 32/9 Cardiac Output 5.6 Cardiac Index 3 - Exam Physical Exam: Revealed 66-year-old white male in no distress , on 2 L nasal cannula. head: Atraumatic, normocephalic. HEENT:[Neck is supple.] [No neck masses.] [No thyromegaly.] [No JVD.] Chest: Symmetrical chest expansion, fine crackles at the bases Cardiac Exam: Distant S1 and S2, no S3 gallop. 2/6 systolic murmur thought the precordium Abdomen: [Soft, nontender, no megaly, no rebound, no guarding, normal bowel sounds.] Extremities: [No clubbing, no edema, no cyanosis.] Neurological Exam: Alert and oriented 3 focal neurologic deficit psychiatric: Normal mood affect and normal mental status examination. Skin: No rash - Labs CBC & Chem 7: 03/31/22 05:18 03/31/22 04:25 Labs: Abnormal Lab Results - Last 24 Hours (Table) 03/30/22 03/30/22 03/30/22 Range/Units 12:00 17:04 18:06 RBC (4.30-5.90) m/uL Hgb (13.0-17.5) gm/dL Hct (39.0-53.0) % RDW (11.5-15.5) % Plt Count (150-450) k/uL Lymphocytes # (1.0-4.8) k/uL Sodium (137-145) mmol/L Creatinine (0.66-1.25) mg/dL Glucose (74-99) mg/dL POC Glucose (mg/dL) 125 H 118 H 133 H (70-110) mg/dL Calcium (8.4-10.2) mg/dL AST (17-59) U/L Total Protein (6.3-8.2) g/dL Albumin (3.5-5.0) g/dL Crossmatch 03/30/22 03/30/22 03/30/22 Range/Units 18:59 20:31 22:14 RBC (4.30-5.90) m/uL Hgb (13.0-17.5) gm/dL Hct (39.0-53.0) % RDW (11.5-15.5) % Plt Count (150-450) k/uL Lymphocytes # (1.0-4.8) k/uL Sodium (137-145) mmol/L Creatinine (0.66-1.25) mg/dL Glucose (74-99) mg/dL POC Glucose (mg/dL) 138 H 115 H 116 H (70-110) mg/dL Calcium (8.4-10.2) mg/dL AST (17-59) U/L Total Protein (6.3-8.2) g/dL Albumin (3.5-5.0) g/dL Crossmatch 03/30/22 03/31/22 03/31/22 Range/Units 23:14 00:09 01:16 RBC (4.30-5.90) m/uL Hgb (13.0-17.5) gm/dL Hct (39.0-53.0) % RDW (11.5-15.5) % Plt Count (150-450) k/uL Lymphocytes # (1.0-4.8) k/uL Sodium (137-145) mmol/L Creatinine (0.66-1.25) mg/dL Glucose (74-99) mg/dL POC Glucose (mg/dL) 112 H 126 H 111 H (70-110) mg/dL Calcium (8.4-10.2) mg/dL AST (17-59) U/L Total Protein (6.3-8.2) g/dL Albumin (3.5-5.0) g/dL Crossmatch 03/31/22 03/31/22 03/31/22 Range/Units 02:23 03:19 04:22 RBC (4.30-5.90) m/uL Hgb (13.0-17.5) gm/dL Hct (39.0-53.0) % RDW (11.5-15.5) % Plt Count (150-450) k/uL Lymphocytes # (1.0-4.8) k/uL Sodium (137-145) mmol/L Creatinine (0.66-1.25) mg/dL Glucose (74-99) mg/dL POC Glucose (mg/dL) 122 H 115 H 115 H (70-110) mg/dL Calcium (8.4-10.2) mg/dL AST (17-59) U/L Total Protein (6.3-8.2) g/dL Albumin (3.5-5.0) g/dL Crossmatch 03/31/22 03/31/22 03/31/22 Range/Units 04:25 04:25 05:18 RBC 2.29 L 2.33 L (4.30-5.90) m/uL Hgb 6.8 L* 6.7 L* (13.0-17.5) gm/dL Hct 20.6 L 20.7 L (39.0-53.0) % RDW 18.7 H 18.6 H (11.5-15.5) % Plt Count 75 L 74 L (150-450) k/uL Lymphocytes # 0.6 L (1.0-4.8) k/uL Sodium 134 L (137-145) mmol/L Creatinine 0.53 L (0.66-1.25) mg/dL Glucose 100 H (74-99) mg/dL POC Glucose (mg/dL) (70-110) mg/dL Calcium 8.3 L (8.4-10.2) mg/dL AST 70 H (17-59) U/L Total Protein 5.0 L (6.3-8.2) g/dL Albumin 3.2 L (3.5-5.0) g/dL Crossmatch 03/31/22 03/31/22 03/31/22 Range/Units 06:15 06:26 07:09 RBC (4.30-5.90) m/uL Hgb (13.0-17.5) gm/dL Hct (39.0-53.0) % RDW (11.5-15.5) % Plt Count (150-450) k/uL Lymphocytes # (1.0-4.8) k/uL Sodium (137-145) mmol/L Creatinine (0.66-1.25) mg/dL Glucose (74-99) mg/dL POC Glucose (mg/dL) 132 H 120 H (70-110) mg/dL Calcium (8.4-10.2) mg/dL AST (17-59) U/L Total Protein (6.3-8.2) g/dL Albumin (3.5-5.0) g/dL Crossmatch See Detail 03/31/22 03/31/22 Range/Units 07:54 10:16 RBC (4.30-5.90) m/uL Hgb (13.0-17.5) gm/dL Hct (39.0-53.0) % RDW (11.5-15.5) % Plt Count (150-450) k/uL Lymphocytes # (1.0-4.8) k/uL Sodium (137-145) mmol/L Creatinine (0.66-1.25) mg/dL Glucose (74-99) mg/dL POC Glucose (mg/dL) 134 H 134 H (70-110) mg/dL Calcium (8.4-10.2) mg/dL AST (17-59) U/L Total Protein (6.3-8.2) g/dL Albumin (3.5-5.0) g/dL Crossmatch Assessment and Plan Assessment: Impression: Status post aortic valve replacement, mitral valve repair and closure of patent foramen ovale, postoperative day #2 Benign essential hypertension Chronic atrial fibrillation Tobacco dependence syndrome Dyslipidemia Opioid dependence Myeloproliferative disorder Postoperative anemia, mostly related to acute blood loss and chronic anemia. Expected. Recommendation: Transfusions with 1 unit of packed RBCs today for hemoglobin of 6.7 Continue incentive spirometry Ambulate Continue insulin Increase activity and ambulate as tolerated We'll continue to follow Time with Patient: Less than 30
[2022-03-31 12:04] LABS: Glucose,Whole Blood 132 mg/dL (70-110)
[2022-03-31] MEDS: METOPROLOL TARTRATE 12.5 MG TAB PO SCH ×2 (12:27→21:03)
--- NOTE | 2022-03-31 12:28 | P.PN ---
Subjective Progress Note Date: 03/31/22 Patient was seen in the ICU. He is sitting in the chair. Patient is denying any pain. He is getting 1 unit of PRBC due to hemoglobin of 6.7. Patient states that he feels better and stronger compared to yesterday. Objective - Vital Signs Vital signs: Vital Signs Temp 98.2 F 03/31/22 11:39 Pulse 73 03/31/22 11:39 Resp 16 03/31/22 11:39 BP 107/58 03/31/22 11:39 Pulse Ox 96 03/31/22 11:39 FiO2 50 03/29/22 20:30 Intake & Output 03/30/22 03/31/22 03/31/22 18:59 06:59 18:59 Intake Total 693.827 636.384 468.859 Output Total 427 468 90 Balance 266.827 168.384 378.859 Weight 71.1 kg 79.1 kg Intake: IV 665 622 158 CO/CI 20 Lactated Ringers 1,000 ml 470 550 140 @ 20 mls/hr IV .Q24H [facility] Rx#:[id number] Pressure 75 72 18 ceFAZolin 2 gm In Sodium 100 Chloride 0.9% 50 ml @ 100 mls/hr IVPB Q8HR [facility] Rx# :[id number] Intake, IV Titration 28.827 14.384 0.859 Amount Insulin Regular 100 unit 28.827 14.384 0.859 In Sodium Chloride 0.9% 100 ml @ Per Protocol IV .Q0M [facility] Rx#:[id number] Blood Product 310 Rc As-1 Unit 310 [id number] Output: Chest Tube Drainage 72 87 15 LP/RP 32 40 5 MS 40 47 10 Urine 355 381 75 Other: Voiding Method Indwelling Catheter Indwelling Catheter ABP, PAP, CO, CI - Last Documented Arterial Blood Pressure 95/48 Pulmonary Artery Pressure 32/9 Cardiac Output 5.6 Cardiac Index 3 - Exam General examination - Alert and Oriented 3 in NAD, appears chronically debilitated Heart - + S1S2 Lungs - diminished breath sounds bilaterally, chest brace Abdomen soft NT ND +ve BS Extremities - No edema [employer] - Moving all 4 extremities spontaneously Psych - Calm and cooperative - Labs CBC & Chem 7: 03/31/22 05:18 03/31/22 04:25 Labs: Abnormal Lab Results - Last 24 Hours (Table) 03/30/22 03/30/22 03/30/22 Range/Units 17:04 18:06 18:59 RBC (4.30-5.90) m/uL Hgb (13.0-17.5) gm/dL Hct (39.0-53.0) % RDW (11.5-15.5) % Plt Count (150-450) k/uL Lymphocytes # (1.0-4.8) k/uL Sodium (137-145) mmol/L Creatinine (0.66-1.25) mg/dL Glucose (74-99) mg/dL POC Glucose (mg/dL) 118 H 133 H 138 H (70-110) mg/dL Calcium (8.4-10.2) mg/dL AST (17-59) U/L Total Protein (6.3-8.2) g/dL Albumin (3.5-5.0) g/dL Crossmatch 03/30/22 03/30/22 03/30/22 Range/Units 20:31 22:14 23:14 RBC (4.30-5.90) m/uL Hgb (13.0-17.5) gm/dL Hct (39.0-53.0) % RDW (11.5-15.5) % Plt Count (150-450) k/uL Lymphocytes # (1.0-4.8) k/uL Sodium (137-145) mmol/L Creatinine (0.66-1.25) mg/dL Glucose (74-99) mg/dL POC Glucose (mg/dL) 115 H 116 H 112 H (70-110) mg/dL Calcium (8.4-10.2) mg/dL AST (17-59) U/L Total Protein (6.3-8.2) g/dL Albumin (3.5-5.0) g/dL Crossmatch 03/31/22 03/31/22 03/31/22 Range/Units 00:09 01:16 02:23 RBC (4.30-5.90) m/uL Hgb (13.0-17.5) gm/dL Hct (39.0-53.0) % RDW (11.5-15.5) % Plt Count (150-450) k/uL Lymphocytes # (1.0-4.8) k/uL Sodium (137-145) mmol/L Creatinine (0.66-1.25) mg/dL Glucose (74-99) mg/dL POC Glucose (mg/dL) 126 H 111 H 122 H (70-110) mg/dL Calcium (8.4-10.2) mg/dL AST (17-59) U/L Total Protein (6.3-8.2) g/dL Albumin (3.5-5.0) g/dL Crossmatch 03/31/22 03/31/22 03/31/22 Range/Units 03:19 04:22 04:25 RBC 2.29 L (4.30-5.90) m/uL Hgb 6.8 L* (13.0-17.5) gm/dL Hct 20.6 L (39.0-53.0) % RDW 18.7 H (11.5-15.5) % Plt Count 75 L (150-450) k/uL Lymphocytes # 0.6 L (1.0-4.8) k/uL Sodium (137-145) mmol/L Creatinine (0.66-1.25) mg/dL Glucose (74-99) mg/dL POC Glucose (mg/dL) 115 H 115 H (70-110) mg/dL Calcium (8.4-10.2) mg/dL AST (17-59) U/L Total Protein (6.3-8.2) g/dL Albumin (3.5-5.0) g/dL Crossmatch 03/31/22 03/31/22 03/31/22 Range/Units 04:25 05:18 06:15 RBC 2.33 L (4.30-5.90) m/uL Hgb 6.7 L* (13.0-17.5) gm/dL Hct 20.7 L (39.0-53.0) % RDW 18.6 H (11.5-15.5) % Plt Count 74 L (150-450) k/uL Lymphocytes # (1.0-4.8) k/uL Sodium 134 L (137-145) mmol/L Creatinine 0.53 L (0.66-1.25) mg/dL Glucose 100 H (74-99) mg/dL POC Glucose (mg/dL) (70-110) mg/dL Calcium 8.3 L (8.4-10.2) mg/dL AST 70 H (17-59) U/L Total Protein 5.0 L (6.3-8.2) g/dL Albumin 3.2 L (3.5-5.0) g/dL Crossmatch See Detail 03/31/22 03/31/22 03/31/22 Range/Units 06:26 07:09 07:54 RBC (4.30-5.90) m/uL Hgb (13.0-17.5) gm/dL Hct (39.0-53.0) % RDW (11.5-15.5) % Plt Count (150-450) k/uL Lymphocytes # (1.0-4.8) k/uL Sodium (137-145) mmol/L Creatinine (0.66-1.25) mg/dL Glucose (74-99) mg/dL POC Glucose (mg/dL) 132 H 120 H 134 H (70-110) mg/dL Calcium (8.4-10.2) mg/dL AST (17-59) U/L Total Protein (6.3-8.2) g/dL Albumin (3.5-5.0) g/dL Crossmatch 03/31/22 03/31/22 Range/Units 10:16 12:01 RBC (4.30-5.90) m/uL Hgb (13.0-17.5) gm/dL Hct (39.0-53.0) % RDW (11.5-15.5) % Plt Count (150-450) k/uL Lymphocytes # (1.0-4.8) k/uL Sodium (137-145) mmol/L Creatinine (0.66-1.25) mg/dL Glucose (74-99) mg/dL POC Glucose (mg/dL) 134 H 132 H (70-110) mg/dL Calcium (8.4-10.2) mg/dL AST (17-59) U/L Total Protein (6.3-8.2) g/dL Albumin (3.5-5.0) g/dL Crossmatch Assessment and Plan Assessment: #Acute blood loss anemia secondary to surgery #Thrombocytopenia likely reactive -Daily CBC -This morning hemoglobin is 6.7. He'll be transfused 1 unit of PRBC -Platelets are gradually trending down. -Resume iron supplements -Patient on aspirin and subcu heparin will defer to primary team #Opiate dependence with Acute Post-operative Pain -Hold suboxone until pain better controlled -norco PRN, fentanyl PRN #Paroxysmal atrial fibrillation -Continue with amiodarone -Eliquis on hold due to acute blood loss anemia -Resume anticoagulation once cleared by primary team #Hypertension -Resume current BP regimen #Hyperlipidemia -Resume statin #History of aortic insufficiency #History of mitral regurgitation Status post aortic valve replacement Status post PFO closure Status post mitral valve repair -Care per primary team DVT prophylaxis: Subcu heparin Thank you for the consult and we will continue to follow along with you
[2022-03-31] MEDS: INSULIN ASPART (NovoLOG) 100 UNIT/ML VIAL SQ SCH ×3 (12:54→21:03)
[2022-03-31 15:12] LABS: Anisocytosis Slight; Basophils % (A) 0 %; Eosinophils % (A) 0 %; HCT 24.7 % (39.0-53.0); Lymphocytes # (A) 0.7 k/uL (1.0-4.8); Lymphocytes % (A) 9 %; MCH 29.9 pg (25.0-35.0); MCHC 33.2 g/dL (31.0-37.0); MCV 90.2 fL (80.0-100.0); Monocytes # (A) 0.3 k/uL (0-1.0); Monocytes % (A) 4 %; Neutrophils # (A) 6.8 k/uL (1.3-7.7); Neutrophils % (A) 86 %; RBC 2.74 m/uL (4.30-5.90); RDW 18.1 % (11.5-15.5)
[2022-03-31 15:15] LABS: Platelet Count 79 k/uL (150-450)
[2022-03-31 15:17] LABS: HGB 8.2 gm/dL (13.0-17.5)
[2022-03-31 16:33] LABS: Glucose,Whole Blood 145 mg/dL (70-110)
[2022-03-31] MEDS: NALOXONE HCL SUBLINGUAL SCH (16:48)
[2022-03-31] MEDS: BUPRENORPHINE HCL SUBLINGUAL SCH (16:48)
[2022-03-31 20:31] LABS: Glucose,Whole Blood 141 mg/dL (70-110)
[2022-03-31] MEDS: SENNOSIDES-DOCUSATE SODIUM 1 EACH TAB PO SCH (20:38)
[2022-04-01] MEDS: HEPARIN SODIUM,PORCINE/PF 5,000 UNIT/0.5 ML SYRINGE SQ SCH ×2 (01:24→09:00)
[2022-04-01] MEDS: HYDROcodone/APAP 10-325MG 1 EACH TAB PO PRN ×3 (02:22→10:41)
[2022-04-01 05:33] LABS: Anisocytosis Slight; Basophils % (A) 0 %; Eosinophils # (A) 0.1 k/uL (0-0.7); Eosinophils % (A) 1 %; HCT 23.2 % (39.0-53.0); HGB 7.6 gm/dL (13.0-17.5); Lymphocytes # (A) 0.8 k/uL (1.0-4.8); Lymphocytes % (A) 12 %; MCH 28.9 pg (25.0-35.0); MCHC 32.8 g/dL (31.0-37.0); MCV 88.3 fL (80.0-100.0); Mean Platelet Volume 9.9; Monocytes # (A) 0.3 k/uL (0-1.0); Monocytes % (A) 5 %; Neutrophils # (A) 5.1 k/uL (1.3-7.7); Neutrophils % (A) 81 %; RBC 2.62 m/uL (4.30-5.90); RDW 17.9 % (11.5-15.5); WBC 6.3 k/uL (3.8-10.6)
[2022-04-01 05:37] LABS: Platelet Count 84 k/uL (150-450)
[2022-04-01 05:57] LABS: Ionized Calcium 4.7 mg/dL (4.5-5.3)
[2022-04-01 05:59] LABS: ALT 12 U/L (4-49); AST 47 U/L (17-59); African American GFR (CKD) >90 (>60 ml/min/1.73 sqM); Albumin 2.8 g/dL (3.5-5.0); Alkaline Phosphatase 57 U/L (38-126); Anion Gap 1 mmol/L; Blood Urea Nitrogen 13 mg/dL (9-20); Calcium 8.3 mg/dL (8.4-10.2); Carbon Dioxide 35 mmol/L (22-30); Chloride 97 mmol/L (98-107); Glucose 109 mg/dL (74-99); Magnesium 1.8 mg/dL (1.6-2.3); Non-African American GFR(CKD) >90 (>60 ml/min/1.73 sqM); Potassium 3.9 mmol/L (3.5-5.1); Sodium 133 mmol/L (137-145); Total Bilirubin 0.6 mg/dL (0.2-1.3); Total Protein 4.6 g/dL (6.3-8.2)
[2022-04-01 06:18] LABS: Glucose,Whole Blood 121 mg/dL (70-110)
[2022-04-01] MEDS: PANTOPRAZOLE 40 MG TABLET PO SCH (06:31)
[2022-04-01] MEDS: FERROUS SULFATE 325 MG TAB PO SCH ×2 (06:31→17:39)
[2022-04-01] MEDS: ASCORBIC ACID 500 MG TAB PO SCH ×2 (06:31→17:39)
[2022-04-01] MEDS: POTASSIUM CHLORIDE ER 20 MEQ TAB.ER PO SCH ×2 (07:19→09:21)
--- NOTE | 2022-04-01 07:30 | XR ---
EXAMINATION TYPE: XR chest 1V portable DATE OF EXAM: 04/01/2022 COMPARISON: 03/23/2022 INDICATION: Postcardiac surgery TECHNIQUE: Single frontal view of the chest is obtained. FINDINGS: The heart size is mildly prominent. The pulmonary vasculature is normal. Mild changes in the right lower lung field. Minimal bilateral pleural effusions. Present. Prior pneum othorax has resolved. IMPRESSION: 1. Mild cardiomegaly. 2. Minimal pleural effusions may be present. 3. Resolution prior left pneumothorax
[2022-04-01] MEDS: MAGNESIUM SULFATE-D5W PMX 1 GM in DEXTROSE/WATER 1 100ML.BAG IVPB SCH ×2 (08:11→09:21)
[2022-04-01] MEDS: ASPIRIN 325 MG TAB PO SCH (08:13)
[2022-04-01] MEDS: LORazepam 0.5 MG TAB PO SCH ×2 (08:13→21:33)
[2022-04-01] MEDS: AMIODARONE 200 MG TAB PO SCH ×2 (08:13→20:34)
[2022-04-01] MEDS: ESCITALOPRAM 20 MG TAB PO SCH (08:13)
[2022-04-01] MEDS: ATORVASTATIN 20 MG TAB PO SCH (08:13)
[2022-04-01] MEDS: INSULIN ASPART (NovoLOG) 100 UNIT/ML VIAL SQ SCH ×4 (08:14→20:35)
[2022-04-01] MEDS: IPRATROPIUM-ALBUTEROL 3 ML NEB INHALATION SCH ×4 (08:24→20:32)
[2022-04-01] MEDS ORDERED: FUROSEMIDE 10 MG/ML 2 ML VIAL IV ONE (08:41)
[2022-04-01] MEDS: METOPROLOL TARTRATE 12.5 MG TAB PO SCH ×2 (09:00→20:38)
[2022-04-01] MEDS: [UNRECOGNIZED DRUG - OTHER] SUBLINGUAL SCH (09:22)
[2022-04-01] MEDS: MUPIROCIN 2% OINT 22 GM TUBE NASAL SCH ×2 (09:22→20:35)
[2022-04-01] MEDS: BUPRENORPHINE HCL SUBLINGUAL SCH ×2 (09:22→16:20)
[2022-04-01] MEDS: NALOXONE HCL SUBLINGUAL SCH ×2 (09:22→16:20)
--- NOTE | 2022-04-01 09:31 | P.PN ---
Subjective Progress Note Date: 04/01/22 Patient is postop day #2 for a aortic valve replacement with Medtronic Avalus valve, mitral valve repair, closure of patent foramen ovale, clip ligation of the left atrial appendage with a 35 mm AtriClip. She has a known history of severe aortic insufficiency, severe mitral regurgitation, patent foramen ovale, and persistent atrial fibrillation, hypertension hyperlipidemia, previous tobacco dependence, opioid dependence on Suboxone outpatient, and preoperative myeloproliferative disorder with chronic leukopenia, anemia, and thrombocytopenia. Patient follows with Dr. Hampton office. He did have an episode of atrial fibrillation patient was started on amiodarone drip. Patient is seen today resting comfortably in the chair. States he feels better now that his chest tubes are out. He denies chest pain or increased shortness of breath. He still has mild sternal surgical pain. He's been up in the [place]aly ambulating. Hemoglobin today is 7.6 platelets are 84 sodium 133 potassium 3.9 13 creatinine 0.5 AST 47 ALT 12. EKG today shows patient in atypical aflutter. Will start Eliquis for anticoagulation The lopresser has been on held due to bradycardia. He is on oral amiodarone. Vital signs show blood pressure 102/73 heart rate 76 Objective - Vital Signs Vital signs: Vital Signs Temp 98.1 F 04/01/22 08:00 Pulse 91 04/01/22 09:00 Resp 22 04/01/22 09:00 BP 91/77 04/01/22 09:00 Pulse Ox 92 L 04/01/22 09:00 FiO2 50 03/29/22 20:30 Intake & Output 03/31/22 04/01/22 04/01/22 18:59 06:59 18:59 Intake Total 563.859 240 200 Output Total 900 350 206 Balance -336.141 -110 -6 Weight 79.8 kg Intake: IV 253 Lactated Ringers 1,000 ml 220 @ 20 mls/hr IV .Q24H [facility] Rx#:[id number] Pressure 33 Intake, IV Titration 0.859 200 Amount Insulin Regular 100 unit 0.859 In Sodium Chloride 0.9% 100 ml @ Per Protocol IV .Q0M [facility] Rx#:[id number] Magnesium Sulfate-D5w Pmx 200 1 gm In Dextrose/Water 1 100ml.bag @ 100 mls/hr IVPB Q1H [facility] Rx#: [id number] Oral 240 Blood Product 310 Rc As-1 Unit 310 [id number] Output: Chest Tube Drainage 15 LP/RP 5 MS 10 Urine 885 350 150 Post Void Residual 56 Other: Voiding Method Indwelling Catheter Urinal # Voids 0 1 ABP, PAP, CO, CI - Last Documented Arterial Blood Pressure 95/54 Pulmonary Artery Pressure 32/9 Cardiac Output 5.6 Cardiac Index 3 - Exam PHYSICAL EXAM: VITAL SIGNS: Reviewed. GENERAL: Well-developed in no acute distress. HEENT: Head is normocephalic. Pupils are equal, round. Sclerae anicteric. Mucous membranes of the mouth are moist. NECK: Supple. No JVD or thyromegaly RESPIRATORY: Respirations even and unlabored. Lungs diminished to auscultation bilaterally. CARDIO: Irregular rate and rhythm. S1 and S2 heard. No murmur or gallops. EXTREMITIES: Normal range of motion. No clubbing or cyanosis. Peripheral pulses intact. Negative for bilateral lower extremity edema NEURO: Orientated to person, time, mood is appropriate - Labs CBC & Chem 7: 04/01/22 05:04 04/01/22 05:04 Labs: Abnormal Lab Results - Last 24 Hours (Table) 03/31/22 03/31/22 03/31/22 Range/Units 06:15 10:16 12:01 RBC (4.30-5.90) m/uL Hgb (13.0-17.5) gm/dL Hct (39.0-53.0) % RDW (11.5-15.5) % Plt Count (150-450) k/uL Lymphocytes # (1.0-4.8) k/uL Sodium (137-145) mmol/L Chloride (98-107) mmol/L Carbon Dioxide (22-30) mmol/L Creatinine (0.66-1.25) mg/dL Glucose (74-99) mg/dL POC Glucose (mg/dL) 134 H 132 H (70-110) mg/dL Calcium (8.4-10.2) mg/dL Total Protein (6.3-8.2) g/dL Albumin (3.5-5.0) g/dL Crossmatch See Detail 03/31/22 03/31/22 03/31/22 Range/Units 15:05 16:31 20:29 RBC 2.74 L (4.30-5.90) m/uL Hgb 8.2 L D (13.0-17.5) gm/dL Hct 24.7 L (39.0-53.0) % RDW 18.1 H (11.5-15.5) % Plt Count 79 L (150-450) k/uL Lymphocytes # 0.7 L (1.0-4.8) k/uL Sodium (137-145) mmol/L Chloride (98-107) mmol/L Carbon Dioxide (22-30) mmol/L Creatinine (0.66-1.25) mg/dL Glucose (74-99) mg/dL POC Glucose (mg/dL) 145 H 141 H (70-110) mg/dL Calcium (8.4-10.2) mg/dL Total Protein (6.3-8.2) g/dL Albumin (3.5-5.0) g/dL Crossmatch 04/01/22 04/01/22 04/01/22 Range/Units 05:04 05:04 06:17 RBC 2.62 L (4.30-5.90) m/uL Hgb 7.6 L (13.0-17.5) gm/dL Hct 23.2 L (39.0-53.0) % RDW 17.9 H (11.5-15.5) % Plt Count 84 L (150-450) k/uL Lymphocytes # 0.8 L (1.0-4.8) k/uL Sodium 133 L (137-145) mmol/L Chloride 97 L (98-107) mmol/L Carbon Dioxide 35 H (22-30) mmol/L Creatinine 0.53 L (0.66-1.25) mg/dL Glucose 109 H (74-99) mg/dL POC Glucose (mg/dL) 121 H (70-110) mg/dL Calcium 8.3 L (8.4-10.2) mg/dL Total Protein 4.6 L (6.3-8.2) g/dL Albumin 2.8 L (3.5-5.0) g/dL Crossmatch Assessment and Plan Assessment: Atypical aflutter Severe aortic insufficiency status post aortic valve replacement Severe mitral regurgitation status post atrial valve repair PFO status post closure device Persistent atrial fibrillation Hypertension. Plan: Continue to hold beta ralph for bradycardia as needed Start Eliquis for anticoagulation Continue with all current cardiac medications Continue with telemetry monitoring Tenuous strict I's and O's and daily weights Continue to increase activity as tolerated Further recommendations based on clinical course The above impression and plan of care have been discussed and directed by the signing physician. Vicky Busch, nurse practitioner, acting as scribe for signing physician.
--- NOTE | 2022-04-01 09:32 | P.PN ---
Subjective Progress Note Date: 04/01/22 Principal diagnosis: Severe aortic valve insufficiency, severe mitral valve regurgitation, patent foramen ovale, persistent atrial fibrillation. Past medical history significant for hypertension, hyperlipidemia, previous tobacco dependence, opioid dependence on Suboxone outpatient, and preoperative myeloproliferative disorder with chronic leukopenia, anemia, and thrombocytopenia POD#3 aortic valve replacement with a #25 mm Medtronic Avalus bioprosthetic aortic valve, mitral valve repair with a #30 mm CarboMedics AnnuloFlex band, closure of patent foramen ovale, complete left-sided maze using radiofrequency and cryo energy sources, clip ligation of the left atrial appendage with a 35 mm AtriClip, intraoperative transesophageal echocardiogram. Postoperative acute blood loss anemia and thrombocytopenia expected given hemodilution, cardiopulmonary bypass pump, and preoperative anemia. The patient was seen and examined today 04/01/2022 at his bedside in the intensive care unit. Currently sitting up to the bedside chair, is awake, alert, oriented 3 and is in no acute apparent distress. Denies any complaints of shortness of breath at this time or surgical type pain at this time. He does report that he is having some soreness to his lower back and bottom. He was given a dose of Reglan this morning for complaints of some nausea and denies having any emesis. Bedside telemetry showing atrial fibrillation heart rate 75 BPM. Oxygen saturation are 93% on room air and is achieving 1500 mL on his incentive spirometry. Yesterday his hemoglobin was 6.7 and was transfused 1 unit of packed red blood cells followed by a dose of Lasix 20 mg IVP. This morning his laboratory results show a WBC count of 6.3, hemoglobin 7.6, hematocrit 23.2, platelets 84, sodium 133, potassium 3.9, chloride 97, CO2 35, BUN 13, creatinine 0.53, glucose 109, and calcium 8.3. His chest tubes, epicardial pacemaker wires, right IJ Cordis and arterial line were removed without incident yesterday 03/31/2022. The patient reports he has been up ambulating in the hallway with minimal assistance from nursing and therapy staff and is tolerating well. Objective - Vital Signs Vital signs: Vital Signs Temp 98.1 F 04/01/22 08:00 Pulse 91 04/01/22 09:00 Resp 22 04/01/22 09:00 BP 91/77 04/01/22 09:00 Pulse Ox 92 L 04/01/22 09:00 FiO2 50 03/29/22 20:30 Intake & Output 03/31/22 04/01/22 04/01/22 18:59 06:59 18:59 Intake Total 563.859 240 200 Output Total 900 350 206 Balance -336.141 -110 -6 Weight 79.8 kg Intake: IV 253 Lactated Ringers 1,000 ml 220 @ 20 mls/hr IV .Q24H [facility] Rx#:[id number] Pressure 33 Intake, IV Titration 0.859 200 Amount Insulin Regular 100 unit 0.859 In Sodium Chloride 0.9% 100 ml @ Per Protocol IV .Q0M [facility] Rx#:[id number] Magnesium Sulfate-D5w Pmx 200 1 gm In Dextrose/Water 1 100ml.bag @ 100 mls/hr IVPB Q1H [facility] Rx#: [id number] Oral 240 Blood Product 310 Rc As-1 Unit 310 [id number] Output: Chest Tube Drainage 15 LP/RP 5 MS 10 Urine 885 350 150 Post Void Residual 56 Other: Voiding Method Indwelling Catheter Urinal # Voids 0 1 ABP, PAP, CO, CI - Last Documented Arterial Blood Pressure 95/54 Pulmonary Artery Pressure 32/9 Cardiac Output 5.6 Cardiac Index 3 - Exam CONSTITUTIONAL: Sitting up to the bedside chair in the intensive care unit, appears comfortable, cooperative, no apparent acute distress. HEENT: Neck is supple, no JVD, no lymphadenopathy. RESPIRATORY: Lungs sounds essentially clear throughout, diminished to his bilateral bases. Respirations are symmetrical and nonlabored. Currently on room air with oxygen saturations 93%. Able to achieve 1500 mL on his incentive spirometry. Strong cough. CARDIOVASCULAR: Regular rhythm and rate. S1 and S2 present, negative for S3, gallop or murmur. Sternum is stable. Palpable peripheral pulses bilaterally, no edema present. No calf pain or tenderness noted. Heart hugger in place with patient demonstrating appropriate use. Knee-high BRANDON hose and sequential compression devices in place to his bilateral lower extremities. GASTROINTESTINAL: Abdomen soft, nontender, nondistended. Active bowel sounds present 4 quadrants. Tolerating diet. Passing flatus. No guarding or rigidity. GENITOURINARY: Poe present draining clear, yellow urine. Urine output 225 mL in the last 8 hours. INTEGUMENTARY: Skin is warm and dry with no evidence of clubbing or cyanosis. Midline sternal incision clean dry and well approximated, covered with dry intact dressing. NEUROLOGIC: Cranial nerves II through XII intact. No focal deficits. MUSKULOSKELETAL: Able to move all extremities, strength equal bilaterally, generalized weakness. PSYCHIATRIC: Alert and oriented to person place and time, appropriate affect, intact judgment and insight. - Allied health notes Allied health notes reviewed: nursing - Labs CBC & Chem 7: 04/01/22 05:04 04/01/22 05:04 Labs: Abnormal Lab Results - Last 24 Hours (Table) 03/31/22 03/31/22 03/31/22 Range/Units 06:15 10:16 12:01 RBC (4.30-5.90) m/uL Hgb (13.0-17.5) gm/dL Hct (39.0-53.0) % RDW (11.5-15.5) % Plt Count (150-450) k/uL Lymphocytes # (1.0-4.8) k/uL Sodium (137-145) mmol/L Chloride (98-107) mmol/L Carbon Dioxide (22-30) mmol/L Creatinine (0.66-1.25) mg/dL Glucose (74-99) mg/dL POC Glucose (mg/dL) 134 H 132 H (70-110) mg/dL Calcium (8.4-10.2) mg/dL Total Protein (6.3-8.2) g/dL Albumin (3.5-5.0) g/dL Crossmatch See Detail 03/31/22 03/31/22 03/31/22 Range/Units 15:05 16:31 20:29 RBC 2.74 L (4.30-5.90) m/uL Hgb 8.2 L D (13.0-17.5) gm/dL Hct 24.7 L (39.0-53.0) % RDW 18.1 H (11.5-15.5) % Plt Count 79 L (150-450) k/uL Lymphocytes # 0.7 L (1.0-4.8) k/uL Sodium (137-145) mmol/L Chloride (98-107) mmol/L Carbon Dioxide (22-30) mmol/L Creatinine (0.66-1.25) mg/dL Glucose (74-99) mg/dL POC Glucose (mg/dL) 145 H 141 H (70-110) mg/dL Calcium (8.4-10.2) mg/dL Total Protein (6.3-8.2) g/dL Albumin (3.5-5.0) g/dL Crossmatch 04/01/22 04/01/22 04/01/22 Range/Units 05:04 05:04 06:17 RBC 2.62 L (4.30-5.90) m/uL Hgb 7.6 L (13.0-17.5) gm/dL Hct 23.2 L (39.0-53.0) % RDW 17.9 H (11.5-15.5) % Plt Count 84 L (150-450) k/uL Lymphocytes # 0.8 L (1.0-4.8) k/uL Sodium 133 L (137-145) mmol/L Chloride 97 L (98-107) mmol/L Carbon Dioxide 35 H (22-30) mmol/L Creatinine 0.53 L (0.66-1.25) mg/dL Glucose 109 H (74-99) mg/dL POC Glucose (mg/dL) 121 H (70-110) mg/dL Calcium 8.3 L (8.4-10.2) mg/dL Total Protein 4.6 L (6.3-8.2) g/dL Albumin 2.8 L (3.5-5.0) g/dL Crossmatch - Imaging and Cardiology Chest x-ray: report reviewed, image reviewed Assessment and Plan Assessment: 1. Severe aortic valve insufficiency, status post aortic valve replacement 2. Severe mitral valve regurgitation, status post mitral valve repair 3. Patent foramen ovale, status post closure 4. Persistent atrial fibrillation, status post complete left-sided maze using radiofrequency and cryo energy sources, clip ligation of the left atrial appendage 5. History of hypertension 6. History of hyperlipidemia, treated, cholesterol 120, LDL 43 7. Previous tobacco dependence, preoperative FEV1 70% of predicted 8. Opioid dependence on Suboxone outpatient 9. Preoperative myeloproliferative disorder with chronic leukopenia, anemia, and thrombocytopenia 10. Postoperative acute blood loss anemia and thrombocytopenia Plan: 1. Continue to maximize medical therapy with aspirin 81 mg, statin, and beta ralph. Increase metoprolol tartrate as tolerated. 2. Continue amiodarone 400 mg by mouth twice a day for atrial fibrillation prophylaxis. 3. Encourage incentive spirometry 10 times every hour while awake. Bronchodilators per pulmonology. 4. Increase activity, ambulate as tolerated. PT/OT/cardiac rehab following. 5. Will monitor daily labs and chest x-ray. Electrolyte replacement per protocol. No further transfusions at this point. 6. Pain control with current medication regimen. Patient to continue Suboxone as per his home dose with added pain medication which will be titrated accordingly. Fentanyl was discontinued yesterday once his chest tubes were removed. 7. Insulin management per internal medicine. Patient is not diabetic, preoperative hemaglobin A1c 5.5%. 8. Start his home dose of Eliquis 5 mg by mouth twice a day for anticoagulation. 9. May continue to bladder scan every 6 hours and when necessary postvoid residual, straight cathed for greater than 300 mL of residual urine. 10. Strict accurate intake and output. Daily weights 11. Transfer orders were placed to the third floor cardiac stepdown unit. Discharge planning is in place. 12. More recommendations to follow based on patient's clinical course. Time with Patient: Greater than 30
[2022-04-01] MEDS: APIXABAN 5 MG TAB PO SCH ×2 (09:39→20:34)
[2022-04-01] MEDS: METOCLOPRAMIDE 5 MG/ML 2 ML VIAL IVP PRN (10:34)
--- NOTE | 2022-04-01 10:53 | P.PN ---
Subjective Progress Note Date: 03/25/22 Patient this morning is denying any acute complaints. Patient says that he is usually an active person and is not used to just lying in bed and sitting in a chair. He otherwise has no acute complaints. Objective - Vital Signs Vital signs: Vital Signs Temp 98.1 F 04/01/22 08:00 Pulse 76 04/01/22 10:00 Resp 16 04/01/22 10:00 BP 105/73 04/01/22 10:00 Pulse Ox 99 04/01/22 10:00 FiO2 50 03/29/22 20:30 Intake & Output 03/31/22 04/01/22 04/01/22 18:59 06:59 18:59 Intake Total 563.859 240 200 Output Total 900 350 456 Balance -336.141 -110 -256 Weight 79.8 kg Intake: IV 253 Lactated Ringers 1,000 ml 220 @ 20 mls/hr IV .Q24H [facility] Rx#:[id number] Pressure 33 Intake, IV Titration 0.859 200 Amount Insulin Regular 100 unit 0.859 In Sodium Chloride 0.9% 100 ml @ Per Protocol IV .Q0M [facility] Rx#:[id number] Magnesium Sulfate-D5w Pmx 200 1 gm In Dextrose/Water 1 100ml.bag @ 100 mls/hr IVPB Q1H [facility] Rx#: [id number] Oral 240 Blood Product 310 Rc As-1 Unit 310 [id number] Output: Chest Tube Drainage 15 LP/RP 5 MS 10 Urine 885 350 400 Post Void Residual 56 Other: Voiding Method Indwelling Catheter Urinal Urinal # Voids 0 1 ABP, PAP, CO, CI - Last Documented Arterial Blood Pressure 95/54 Pulmonary Artery Pressure 32/9 Cardiac Output 5.6 Cardiac Index 3 - Exam General examination - Alert and Oriented 3 in NAD, appears chronically debilitated Heart - + S1S2 Lungs - diminished breath sounds bilaterally, chest brace Abdomen soft NT ND +ve BS Extremities - No edema PROVIDER RELATIONS ADVOCATE - Moving all 4 extremities spontaneously Psych - Calm and cooperative - Labs CBC & Chem 7: 04/01/22 05:04 04/01/22 05:04 Labs: Abnormal Lab Results - Last 24 Hours (Table) 03/31/22 03/31/22 03/31/22 Range/Units 06:15 12:01 15:05 RBC 2.74 L (4.30-5.90) m/uL Hgb 8.2 L D (13.0-17.5) gm/dL Hct 24.7 L (39.0-53.0) % RDW 18.1 H (11.5-15.5) % Plt Count 79 L (150-450) k/uL Lymphocytes # 0.7 L (1.0-4.8) k/uL Sodium (137-145) mmol/L Chloride (98-107) mmol/L Carbon Dioxide (22-30) mmol/L Creatinine (0.66-1.25) mg/dL Glucose (74-99) mg/dL POC Glucose (mg/dL) 132 H (70-110) mg/dL Calcium (8.4-10.2) mg/dL Total Protein (6.3-8.2) g/dL Albumin (3.5-5.0) g/dL Crossmatch See Detail 03/31/22 03/31/22 04/01/22 Range/Units 16:31 20:29 05:04 RBC (4.30-5.90) m/uL Hgb (13.0-17.5) gm/dL Hct (39.0-53.0) % RDW (11.5-15.5) % Plt Count (150-450) k/uL Lymphocytes # (1.0-4.8) k/uL Sodium 133 L (137-145) mmol/L Chloride 97 L (98-107) mmol/L Carbon Dioxide 35 H (22-30) mmol/L Creatinine 0.53 L (0.66-1.25) mg/dL Glucose 109 H (74-99) mg/dL POC Glucose (mg/dL) 145 H 141 H (70-110) mg/dL Calcium 8.3 L (8.4-10.2) mg/dL Total Protein 4.6 L (6.3-8.2) g/dL Albumin 2.8 L (3.5-5.0) g/dL Crossmatch 04/01/22 04/01/22 Range/Units 05:04 06:17 RBC 2.62 L (4.30-5.90) m/uL Hgb 7.6 L (13.0-17.5) gm/dL Hct 23.2 L (39.0-53.0) % RDW 17.9 H (11.5-15.5) % Plt Count 84 L (150-450) k/uL Lymphocytes # 0.8 L (1.0-4.8) k/uL Sodium (137-145) mmol/L Chloride (98-107) mmol/L Carbon Dioxide (22-30) mmol/L Creatinine (0.66-1.25) mg/dL Glucose (74-99) mg/dL POC Glucose (mg/dL) 121 H (70-110) mg/dL Calcium (8.4-10.2) mg/dL Total Protein (6.3-8.2) g/dL Albumin (3.5-5.0) g/dL Crossmatch Assessment and Plan Assessment: #Acute blood loss anemia secondary to surgery #Thrombocytopenia likely reactive -Daily CBC -Patient's hemoglobin gradually trending down -Platelets are stable -Resume iron supplements -CT surgery has restarted patient's Eliquis #Opiate dependence with Acute Post-operative Pain -Restart Suboxone -norco PRN, fentanyl PRN #Paroxysmal atrial fibrillation -Continue with amiodarone -Eliquis restarted by primary team #Hypertension -Resume current BP regimen #Hyperlipidemia -Resume statin #History of aortic insufficiency #History of mitral regurgitation Status post aortic valve replacement Status post PFO closure Status post mitral valve repair -Care per primary team DVT prophylaxis: Subcu heparin Thank you for the consult and we will continue to follow along with you
--- NOTE | 2022-04-01 12:13 | P.PN ---
Subjective Progress Note Date: 04/01/22 Principal diagnosis: Status post aortic valve replacement and mitral valve repair postoperative day #3 POD#1 aortic valve replacement with a #25 mm Medtronic Avalus bioprosthetic aortic valve, mitral valve repair with a #30 mm CarboMedics AnnuloFlex band, closure of patent foramen ovale, complete left-sided maze using radiofrequency and cryo energy sources, clip ligation of the left atrial appendage with a 35 mm AtriClip, intraoperative transesophageal echocardiogram. Patient underwent surgery yesterday, and postoperatively I was made aware of the patient at night, reviewed his ventilator settings, his vent settings were adjusted accordingly to the ABG, and few hours later I was notified about the patient on CPAP, I extubated the patient uneventfully. Patient was evaluated today, he is sitting at a bedside chair, not in any distress. Patient was extubated at 20:31, he is now paced at 70 bpm, has atrial pacing. He is hemodynamically stable, not requiring any pressors. On 2 L nasal cannula with O2 saturation 97%. He is on amiodarone at 0.5 mg/m. Chest x-ray showed minimal left basilar atelectasis. PA pressure is 27/8 CVP is 4, continues to have chest tubes in place Reevaluated today on 03/31/22, patient is sitting up in a recliner, he remains in the ICU, and overall the patient is doing well except he feels quite sore and weak. Chest x-ray showed minimal atelectasis at the bases. His hemoglobin is rather low today at 6.7, and he is to receive 1 unit of packed RBCs today. Continues to have multiple lines including right internal jugular Cordis, he has a mediastinal left and right pleural chest tubes and overall the patient is doing great, is not requiring any pressors not requiring any inotropic. Electrolytes and renal profile are normal. Reevaluated today on , patient is doing great, asymptomatic, he is on 2 L nasal cannula, pulling 1500 mL with his incentive spirometer. Chest x-ray showed minimal atelectasis. Patient is sitting at a bedside chair, awake oriented 3, hemodynamically stable, not requiring any inotropic or pressors. Had one episode of nausea earlier today and he was given Reglan. Patient is in atrial fibrillation rate 75/m. Received yesterday units of packed RBCs for a hemoglobin of 6.7. Hemoglobin today is 7.6. Other labs are unremarkable. All his wires and lines have been removed yesterday. Overall the patient is doing great Objective - Vital Signs Vital signs: Vital Signs Temp 98.1 F 04/01/22 08:00 Pulse 76 04/01/22 10:00 Resp 16 04/01/22 10:00 BP 105/73 04/01/22 10:00 Pulse Ox 99 04/01/22 10:00 FiO2 50 03/29/22 20:30 Intake & Output 03/31/22 04/01/22 04/01/22 18:59 06:59 18:59 Intake Total 563.859 240 200 Output Total 900 350 456 Balance -336.141 -110 -256 Weight 79.8 kg Intake: IV 253 Lactated Ringers 1,000 ml 220 @ 20 mls/hr IV .Q24H [facility] Rx#:[id number] Pressure 33 Intake, IV Titration 0.859 200 Amount Insulin Regular 100 unit 0.859 In Sodium Chloride 0.9% 100 ml @ Per Protocol IV .Q0M [facility] Rx#:[id number] Magnesium Sulfate-D5w Pmx 200 1 gm In Dextrose/Water 1 100ml.bag @ 100 mls/hr IVPB Q1H [facility] Rx#: [id number] Oral 240 Blood Product 310 Rc As-1 Unit 310 [id number] Output: Chest Tube Drainage 15 LP/RP 5 MS 10 Urine 885 350 400 Post Void Residual 56 Other: Voiding Method Indwelling Catheter Urinal Urinal # Voids 0 1 ABP, PAP, CO, CI - Last Documented Arterial Blood Pressure 95/54 Pulmonary Artery Pressure 32/9 Cardiac Output 5.6 Cardiac Index 3 - Exam Physical Exam: Revealed 66-year-old white male in no distress , on 2 L nasal cannula. head: Atraumatic, normocephalic. HEENT:[Neck is supple.] [No neck masses.] [No thyromegaly.] [No JVD.] Chest: Symmetrical chest expansion, fine crackles at the bases Cardiac Exam: Distant S1 and S2, no S3 gallop. 2/6 systolic murmur thought the precordium Abdomen: [Soft, nontender, no megaly, no rebound, no guarding, normal bowel sounds.] Extremities: [No clubbing, no edema, no cyanosis.] Neurological Exam: Alert and oriented 3 focal neurologic deficit psychiatric: Normal mood affect and normal mental status examination. Skin: No rash - Labs CBC & Chem 7: 04/01/22 05:04 04/01/22 05:04 Labs: Abnormal Lab Results - Last 24 Hours (Table) 03/31/22 03/31/22 03/31/22 Range/Units 15:05 16:31 20:29 RBC 2.74 L (4.30-5.90) m/uL Hgb 8.2 L D (13.0-17.5) gm/dL Hct 24.7 L (39.0-53.0) % RDW 18.1 H (11.5-15.5) % Plt Count 79 L (150-450) k/uL Lymphocytes # 0.7 L (1.0-4.8) k/uL Sodium (137-145) mmol/L Chloride (98-107) mmol/L Carbon Dioxide (22-30) mmol/L Creatinine (0.66-1.25) mg/dL Glucose (74-99) mg/dL POC Glucose (mg/dL) 145 H 141 H (70-110) mg/dL Calcium (8.4-10.2) mg/dL Total Protein (6.3-8.2) g/dL Albumin (3.5-5.0) g/dL 04/01/22 04/01/22 04/01/22 Range/Units 05:04 05:04 06:17 RBC 2.62 L (4.30-5.90) m/uL Hgb 7.6 L (13.0-17.5) gm/dL Hct 23.2 L (39.0-53.0) % RDW 17.9 H (11.5-15.5) % Plt Count 84 L (150-450) k/uL Lymphocytes # 0.8 L (1.0-4.8) k/uL Sodium 133 L (137-145) mmol/L Chloride 97 L (98-107) mmol/L Carbon Dioxide 35 H (22-30) mmol/L Creatinine 0.53 L (0.66-1.25) mg/dL Glucose 109 H (74-99) mg/dL POC Glucose (mg/dL) 121 H (70-110) mg/dL Calcium 8.3 L (8.4-10.2) mg/dL Total Protein 4.6 L (6.3-8.2) g/dL Albumin 2.8 L (3.5-5.0) g/dL Assessment and Plan Assessment: Impression: Status post aortic valve replacement, mitral valve repair and closure of patent foramen ovale, postoperative day #3 Benign essential hypertension Chronic atrial fibrillation Tobacco dependence syndrome Dyslipidemia Opioid dependence Myeloproliferative disorder Postoperative anemia, mostly related to acute blood loss and chronic anemia. Expected. Recommendation: Resume cardiac meds including aspirin statins and beta blockers and continue amiodarone. Continue incentive spirometry Ambulate Continue insulin, as per sliding scale/Accu-Cheks. Increase activity and ambulate as tolerated Transferred to a monitor bed on selective today. We'll continue to follow Time with Patient: Less than 30
[2022-04-01 12:15] LABS: Glucose,Whole Blood 123 mg/dL (70-110)
[2022-04-01] MEDS ORDERED: ACETAMINOPHEN TAB 500 MG TAB PO PRN (15:20)
[2022-04-01 16:33] LABS: Glucose,Whole Blood 120 mg/dL (70-110)
[2022-04-01 20:08] LABS: Glucose,Whole Blood 128 mg/dL (70-110)
[2022-04-01] MEDS: SENNOSIDES-DOCUSATE SODIUM 1 EACH TAB PO SCH (20:34)
[2022-04-02 00:39] VITALS: BP 99/70
[2022-04-02] MEDS: FERROUS SULFATE 325 MG TAB PO SCH (06:31)
[2022-04-02] MEDS: PANTOPRAZOLE 40 MG TABLET PO SCH (06:31)
[2022-04-02] MEDS: ASCORBIC ACID 500 MG TAB PO SCH (06:31)
[2022-04-02] MEDS: INSULIN ASPART (NovoLOG) 100 UNIT/ML VIAL SQ SCH (06:34)
[2022-04-02 06:35] LABS: Glucose,Whole Blood 99 mg/dL (70-110)
[2022-04-02] MEDS: METOCLOPRAMIDE 5 MG/ML 2 ML VIAL IVP PRN (06:49)
[2022-04-02 07:16] LABS: Anisocytosis Slight; HCT 25.3 % (39.0-53.0); HGB 8.4 gm/dL (13.0-17.5); MCH 30.1 pg (25.0-35.0); MCHC 33.2 g/dL (31.0-37.0); MCV 90.5 fL (80.0-100.0); Mean Platelet Volume 8.6; RBC 2.79 m/uL (4.30-5.90); RDW 18.4 % (11.5-15.5); WBC 5.7 k/uL (3.8-10.6)
[2022-04-02 07:31] LABS: African American GFR (CKD) >90 (>60 ml/min/1.73 sqM); Anion Gap 3 mmol/L; Blood Urea Nitrogen 14 mg/dL (9-20); Calcium 8.1 mg/dL (8.4-10.2); Carbon Dioxide 31 mmol/L (22-30); Chloride 98 mmol/L (98-107); Glucose 92 mg/dL (74-99); Non-African American GFR(CKD) >90 (>60 ml/min/1.73 sqM); Platelet Count 132 k/uL (150-450); Potassium 4.3 mmol/L (3.5-5.1); Sodium 132 mmol/L (137-145)
[2022-04-02] MEDS: IPRATROPIUM-ALBUTEROL 3 ML NEB INHALATION SCH ×2 (07:39→11:48)
--- NOTE | 2022-04-02 07:56 | XR ---
EXAMINATION TYPE: XR chest 2V DATE OF EXAM: 04/02/2022 COMPARISON: 04/01/2022 INDICATION: Postop cardiac surgery TECHNIQUE: Frontal and lateral views of the chest are obtained. FINDINGS: The heart size is normal. The pulmonary vasculature is normal. Mild left lower lobe infiltrate is present, improved from prior study. Minimal bilateral pleural effu sions may be present. IMPRESSION: 1. Improving left lower lobe infiltrate with minimal bilateral pleural effusions.
[2022-04-02] MEDS ORDERED: FUROSEMIDE 10 MG/ML 2 ML VIAL IV ONE (08:30)
--- NOTE | 2022-04-02 08:42 | P.PN ---
Subjective Progress Note Date: 04/02/22 Principal diagnosis: Severe aortic valve insufficiency, severe mitral valve regurgitation, patent foramen ovale, persistent atrial fibrillation. Past medical history significant for hypertension, hyperlipidemia, previous tobacco dependence, opioid dependence on Suboxone outpatient, and preoperative myeloproliferative disorder with chronic leukopenia, anemia, and thrombocytopenia POD#4 aortic valve replacement with a #25 mm Medtronic Avalus bioprosthetic aortic valve, mitral valve repair with a #30 mm CarboMedics AnnuloFlex band, closure of patent foramen ovale, complete left-sided maze using radiofrequency and cryo energy sources, clip ligation of the left atrial appendage with a 35 mm AtriClip, intraoperative transesophageal echocardiogram. Postoperative acute blood loss anemia and thrombocytopenia expected given hemodilution, cardiopulmonary bypass pump, and preoperative anemia. The patient was seen and examined today 04/01/2022 at his bedside in the intensive care unit. He remains hemodynamically stable and is currently on no inotropic pressure support. He is currently sitting up to the bedside chair, is awake, alert, oriented 3 and is in no acute apparent distress. He currently denies any complaints of shortness of breath or surgical type pain, although is complaining of some generalized discomfort from sitting. He reports that his generalized discomfort is more chronic in nature. The patient is also complaining of some constipation. Oxygen saturation are 93% on room air and he is achieving 2000 mL on his incentive spirometry with encouragement. Bedside telemetry is showing atrial fibrillation heart rate 70 bpm. Blood pressure is 99/70 mmHg. He's been afebrile the last 24 hours. Laboratory results this morning show a WBC count of 5.7, hemoglobin 8.4, hematocrit 25.3, platelets 132, sodium 132, potassium 4.3, BUN 14, creatinine 0.43, glucose 92, calcium 8.1 and magnesium 2.0. The patient reports he has been up ambulating in the intensive care unit hallway with standby assistance from nursing and therapy staff and tolerating well. The patient is anxious to be discharged home. Objective - Vital Signs Vital signs: Vital Signs Temp 97.9 F 04/02/22 04:00 Pulse 90 04/02/22 07:00 Resp 13 04/02/22 07:00 BP 99/70 04/02/22 06:00 Pulse Ox 94 L 04/02/22 07:00 FiO2 50 03/29/22 20:30 Intake & Output 04/01/22 04/02/22 04/02/22 18:59 06:59 18:59 Intake Total 200 200 Output Total 756 400 240 Balance -556 -200 -240 Weight 78.1 kg Intake: Intake, IV Titration 200 Amount Magnesium Sulfate-D5w Pmx 200 1 gm In Dextrose/Water 1 100ml.bag @ 100 mls/hr IVPB Q1H [facility] Rx#: [id number] Oral 200 Output: Urine 700 400 240 Post Void Residual 56 Other: Voiding Method Urinal Urinal # Voids 1 ABP, PAP, CO, CI - Last Documented Arterial Blood Pressure 95/54 Pulmonary Artery Pressure 32/9 Cardiac Output 5.6 Cardiac Index 3 - Exam CONSTITUTIONAL: Sitting up to the bedside chair in the intensive care unit, appears comfortable, cooperative, no apparent acute distress. HEENT: Neck is supple, no JVD, no lymphadenopathy. RESPIRATORY: Lungs sounds essentially clear throughout, diminished to his bilateral bases. Respirations are symmetrical and nonlabored. Currently on room air with oxygen saturations 93%. Able to achieve 2000 mL on his incentive spirometry. Strong cough. CARDIOVASCULAR: Irregular rhythm and controlled rate. S1 and S2 present, negative for S3, gallop or murmur. Sternum is stable. Palpable peripheral pulses bilaterally, no edema present. No calf pain or tenderness noted. Heart hugger in place with patient demonstrating appropriate use. Knee-high BRANDON hose and sequential compression devices in place to his bilateral lower extremities. Bedside telemetry showing atrial fibrillation heart rate 70 bpm. GASTROINTESTINAL: Abdomen soft, nontender, nondistended. Active bowel sounds present 4 quadrants. Tolerating diet. Passing flatus. No guarding or rigidity. GENITOURINARY: Continues to void. Urine output 225 mL in the last 8 hours. INTEGUMENTARY: Skin is warm and dry with no evidence of clubbing or cyanosis. Midline sternal incision clean dry and well approximated, covered with dry intact dressing. NEUROLOGIC: Cranial nerves II through XII intact. No focal deficits. MUSKULOSKELETAL: Able to move all extremities, strength equal bilaterally, generalized weakness. PSYCHIATRIC: Alert and oriented to person place and time, appropriate affect, intact judgment and insight. - Allied health notes Allied health notes reviewed: nursing - Labs CBC & Chem 7: 04/02/22 06:47 04/02/22 06:47 Labs: Abnormal Lab Results - Last 24 Hours (Table) 07/29/22 07/29/22 07/29/22 Range/Units 12:13 16:31 20:06 RBC (4.30-5.90) m/uL Hgb (13.0-17.5) gm/dL Hct (39.0-53.0) % RDW (11.5-15.5) % Plt Count (150-450) k/uL Sodium (137-145) mmol/L Carbon Dioxide (22-30) mmol/L Creatinine (0.66-1.25) mg/dL POC Glucose (mg/dL) 123 H 120 H 128 H (70-110) mg/dL Calcium (8.4-10.2) mg/dL 04/02/22 04/02/22 Range/Units 06:47 06:47 RBC 2.79 L (4.30-5.90) m/uL Hgb 8.4 L (13.0-17.5) gm/dL Hct 25.3 L (39.0-53.0) % RDW 18.4 H (11.5-15.5) % Plt Count 132 L D (150-450) k/uL Sodium 132 L (137-145) mmol/L Carbon Dioxide 31 H (22-30) mmol/L Creatinine 0.47 L (0.66-1.25) mg/dL POC Glucose (mg/dL) (70-110) mg/dL Calcium 8.1 L (8.4-10.2) mg/dL - Imaging and Cardiology Chest x-ray: report reviewed, image reviewed Assessment and Plan Assessment: 1. Severe aortic valve insufficiency, status post aortic valve replacement 2. Severe mitral valve regurgitation, status post mitral valve repair 3. Patent foramen ovale, status post closure 4. Persistent atrial fibrillation, status post complete left-sided maze using radiofrequency and cryo energy sources, clip ligation of the left atrial ap pendage 5. History of hypertension 6. History of hyperlipidemia, treated, cholesterol 120, LDL 43 7. Previous tobacco dependence, preoperative FEV1 70% of predicted 8. Opioid dependence on Suboxone outpatient 9. Preoperative myeloproliferative disorder with chronic leukopenia, anemia, and thrombocytopenia 10. Postoperative acute blood loss anemia and thrombocytopenia Plan: 1. Continue to maximize medical therapy with aspirin 81 mg, statin, and beta ralph. Increase metoprolol tartrate as tolerated. 2. Continue amiodarone 400 mg by mouth twice a day for atrial fibrillation prophylaxis. 3. Encourage incentive spirometry 10 times every hour while awake. Br onchodilators per pulmonology. 4. Increase activity, ambulate as tolerated. PT/OT/cardiac rehab following. 5. Will monitor daily labs and chest x-ray. Electrolyte replacement per protocol. No further transfusions at this point. 6. Pain control with current medication regimen. Patient to continue Suboxone as per his home dose with added pain medication which will be titrated accordingly. [place] and fentanyl have been discontinued. 7. Insulin management per internal medicine. Patient is not diabetic, preoperative hemaglobin A1c 5.5%. 8. Continue Eliquis 5 mg by mouth twice a day for anticoagulation. 9. May continue to bladder scan every 6 hours and when necessary postvoid residual, straight cathed for greater than 300 mL of residual urine. 10. Strict accurate intake and output. Daily weights 11. Transfer orders were placed yesterday 04/01/2022 to the third floor cardiac stepdown unit, awaiting a bed on the stepdown unit. Discharge planning is in place, anticipate discharge home with home health care within the next 24 hours. 12. Dulcolax suppository 1 now for complaints of constipation. 13. Lasix 20 mg IV 1 now. 14. More recommendations to follow based on patient's clinical course. Time with Patient: Greater than 30
[2022-04-02] MEDS ORDERED: ASPIRIN 81 MG PO SCH (09:00)
[2022-04-02] MEDS ORDERED: AMIODARONE 200 MG TAB PO SCH (09:00)
[2022-04-02] MEDS: APIXABAN 5 MG TAB PO SCH (09:05)
[2022-04-02] MEDS: ATORVASTATIN 20 MG TAB PO SCH (09:06)
[2022-04-02] MEDS: METOPROLOL TARTRATE 12.5 MG TAB PO SCH (09:06)
[2022-04-02] MEDS: ESCITALOPRAM 20 MG TAB PO SCH (09:06)
[2022-04-02] MEDS: LORazepam 0.5 MG TAB PO SCH (09:06)
[2022-04-02] MEDS: MUPIROCIN 2% OINT 22 GM TUBE NASAL SCH (09:07)
[2022-04-02] MEDS: NALOXONE HCL SUBLINGUAL SCH (10:25)
[2022-04-02] MEDS: [UNRECOGNIZED DRUG - OTHER] SUBLINGUAL SCH (10:25)
[2022-04-02] MEDS: BUPRENORPHINE HCL SUBLINGUAL SCH (10:25)
--- NOTE | 2022-04-02 10:47 | P.PN ---
Subjective Progress Note Date: 04/02/22 Patient denies any acute complaints. No acute issues overnight. Patient is aware that he will go home today. Objective - Vital Signs Vital signs: Vital Signs Temp 97.9 F 04/02/22 04:00 Pulse 90 04/02/22 07:00 Resp 13 04/02/22 07:00 BP 99/70 04/02/22 06:00 Pulse Ox 94 L 04/02/22 07:00 FiO2 50 03/29/22 20:30 Intake & Output 04/01/22 04/02/22 04/02/22 18:59 06:59 18:59 Intake Total 200 200 150 Output Total 756 400 840 Balance -556 200 -690 Weight 78.1 kg Intake: Intake, IV Titration 200 Amount Magnesium Sulfate-D5w Pmx 200 1 gm In Dextrose/Water 1 100ml.bag @ 100 mls/hr IVPB Q1H [facility] Rx#: [id number] Oral 200 150 Output: Urine 700 400 840 Post Void Residual 56 Other: Voiding Method Urinal Urinal # Voids 1 # Bowel Movements 1 ABP, PAP, CO, CI - Last Documented Arterial Blood Pressure 95/54 Pulmonary Artery Pressure 32/9 Cardiac Output 5.6 Cardiac Index 3 - Exam General examination - Alert and Oriented 3 in NAD, appears chronically debilitated Heart - + S1S2 Lungs - diminished breath sounds bilaterally, chest brace Abdomen soft NT ND +ve BS Extremities - No edema 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 Psych - Calm and cooperative - Labs CBC & Chem 7: 04/02/22 06:47 04/02/22 06:47 Labs: Abnormal Lab Results - Last 24 Hours (Table) 04/01/22 04/01/22 04/01/22 Range/Units 12:13 16:31 20:06 RBC (4.30-5.90) m/uL Hgb (13.0-17.5) gm/dL Hct (39.0-53.0) % RDW (11.5-15.5) % Plt Count (150-450) k/uL Sodium (137-145) mmol/L Carbon Dioxide (22-30) mmol/L Creatinine (0.66-1.25) mg/dL POC Glucose (mg/dL) 123 H 120 H 128 H (70-110) mg/dL Calcium (8.4-10.2) mg/dL 04/02/22 04/02/22 Range/Units 06:47 06:47 RBC 2.79 L (4.30-5.90) m/uL Hgb 8.4 L (13.0-17.5) gm/dL Hct 25.3 L (39.0-53.0) % RDW 18.4 H (11.5-15.5) % Plt Count 132 L D (150-450) k/uL Sodium 132 L (137-145) mmol/L Carbon Dioxide 31 H (22-30) mmol/L Creatinine 0.47 L (0.66-1.25) mg/dL POC Glucose (mg/dL) (70-110) mg/dL Calcium 8.1 L (8.4-10.2) mg/dL Assessment and Plan Assessment: #Acute blood loss anemia secondary to surgery #Thrombocytopenia likely reactive -Daily CBC -Hemoglobin stable this morning -Platelets are stable -Resume iron supplements -CT surgery has restarted patient's Eliquis #Opiate dependence with Acute Post-operative Pain -Restart Suboxone -norco PRN, fentanyl PRN #Paroxysmal atrial fibrillation -Continue with amiodarone -Eliquis restarted by primary team #Hypertension -Resume current BP regimen #Hyperlipidemia -Resume statin #History of aortic insufficiency #History of mitral regurgitation Status post aortic valve replacement Status post PFO closure Status post mitral valve repair -Care per primary team DVT prophylaxis: Subcu heparin Patient stable for discharge from a medical standpoint Thank you for the consult and we will continue to follow along with you
--- NOTE | 2022-04-02 10:56 | P.PN ---
Subjective HISTORY OF PRESENTING ILLNESS Patient is postop day #2 for a aortic valve replacement with Medtronic Avalus valve, mitral valve repair, closure of patent foramen ovale, clip ligation of the left atrial appendage with a 35 mm AtriClip. She has a known history of severe aortic insufficiency, severe mitral regurgitation, patent foramen ovale, and persistent atrial fibrillation, hypertension hyperlipidemia, previous tobacco dependence, opioid dependence on Suboxone outpatient, and preoperative myeloproliferative disorder with chronic leukopenia, anemia, and thrombocytopenia. Patient follows with Dr. Hampton office. He did have an episode of atrial fibrillation patient was started on amiodarone drip. Patient is seen today resting comfortably in the chair. States he feels better now that his chest tubes are out. He denies chest pain or increased shortness of breath. He still has mild sternal surgical pain. He's been up in the [place] ambulating. Hemoglobin today is 7.6 platelets are 84 sodium 133 potassium 3.9 13 creatinine 0.5 AST 47 ALT 12. EKG today shows patient in atypical aflutter. Will start Eliquis for anticoagulation The lopresser has been on held due to bradycardia. He is on oral amiodarone. Vital signs show blood pressure 102/73 heart rate 76 7/30 Patient seen and examined. Patient denies any chest pain or pressure. Able walk the halls without difficulty. He did have a bowel movement. Denies any lightheadedness. Telemetry reveals A. fib with controlled ventricular rates PHYSICAL EXAMINATION Vital signs reviewed. CONSTITUTIONAL: No apparent distress. HEENT: Head is normocephalic. Pupils are equal, round. Sclerae anicteric. Mucous membranes of the mouth are moist. No JVD. No carotid bruit. CHEST EXAMINATION: Lungs are clear to auscultation. No chest wall tenderness is noted on palpation or with deep breathing. HEART EXAMINATION: Regular rate and rhythm. S1, S2 heard. No murmurs, gallops or rub. ABDOMEN: Soft, nontender. Positive bowel sounds. EXTREMITIES: 2+ peripheral pulses, no lower extremity edema and no calf tenderness. NEUROLOGIC EXAMINATION: Patient is awake, alert and oriented x3. Assessment: History atypical aflutter Severe aortic insufficiency status post aortic valve replacement Severe mitral regurgitation status post atrial valve repair PFO status post closure device Persistent atrial fibrillation controlled ventricular rates Hypertension. Plan: Continue with current medical regimen. Patient has been doing well and heart rates controlled. Appears stable for discharge home on current regimen. Continue anticoagulation. Follow-up in office in 1 week. Objective - Vital Signs Vital signs: Vital Signs Temp 97.9 F 04/02/22 04:00 Pulse 90 04/02/22 07:00 Resp 13 04/02/22 07:00 BP 99/70 04/02/22 06:00 Pulse Ox 94 L 04/02/22 07:00 FiO2 50 03/29/22 20:30 Intake & Output 04/01/22 04/02/22 04/02/22 18:59 06:59 18:59 Intake Total 200 200 150 Output Total 756 400 840 Balance -909 -560 -956 Weight 78.1 kg Intake: Intake, IV Titration 200 Amount Magnesium Sulfate-D5w Pmx 200 1 gm In Dextrose/Water 1 100ml.bag @ 100 mls/hr IVPB Q1H [facility] Rx#: [id number] Oral 200 150 Output: Urine 700 400 840 Post Void Residual 56 Other: Voiding Method Urinal Urinal # Voids 1 # Bowel Movements 1 ABP, PAP, CO, CI - Last Documented Arterial Blood Pressure 95/54 Pulmonary Artery Pressure 32/9 Cardiac Output 5.6 Cardiac Index 3 - Labs CBC & Chem 7: 04/02/22 06:47 04/02/22 06:47 Labs: Abnormal Lab Results - Last 24 Hours (Table) 04/01/22 04/01/22 04/01/22 Range/Units 12:13 16:31 20:06 RBC (4.30-5.90) m/uL Hgb (13.0-17.5) gm/dL Hct (39.0-53.0) % RDW (11.5-15.5) % Plt Count (150-450) k/uL Sodium (137-145) mmol/L Carbon Dioxide (22-30) mmol/L Creatinine (0.66-1.25) mg/dL POC Glucose (mg/dL) 123 H 120 H 128 H (70-110) mg/dL Calcium (8.4-10.2) mg/dL 04/02/22 04/02/22 Range/Units 06:47 06:47 RBC 2.79 L (4.30-5.90) m/uL Hgb 8.4 L (13.0-17.5) gm/dL Hct 25.3 L (39.0-53.0) % RDW 18.4 H (11.5-15.5) % Plt Count 132 L D (150-450) k/uL Sodium 132 L (137-145) mmol/L Carbon Dioxide 31 H (22-30) mmol/L Creatinine 0.47 L (0.66-1.25) mg/dL POC Glucose (mg/dL) (70-110) mg/dL Calcium 8.1 L (8.4-10.2) mg/dL
[2022-04-02 11:25] VITALS: PULSE 81
[2022-04-02 11:41] LABS: Glucose,Whole Blood 113 mg/dL (70-110)
--- NOTE | 2022-04-02 12:15 | P.DS ---
Providers Date of admission: 03/29/22 05:37 Expected date of discharge: 04/02/22 Attending physician: Paxton Spain Consults: 03/29/22 13:39 Consult Physician Routine Consulting Provider: Danae Miranda Consult Reason/Comments: med mgmt Do you want consulting provider notified?: Yes Consult Physician Routine Consulting Provider: Bora Adams Consult Reason/Comments: Senior Technical Recruiter Consult: post cardiac surgery Do you want consulting provider notified?: Yes Consult Physician Routine Consulting Provider: Ambrosio Morejon Consult Reason/Comments: Manager Hotel Consult: post cardiac surgery Do you want consulting provider notified?: Yes Primary care physician: Stated None Hospital Course: FINAL DIAGNOSIS: 1. Severe aortic valve insufficiency, status post aortic valve replacement 2. Severe mitral valve regurgitation, status post mitral valve repair 3. Patent foramen ovale, status post closure 4. Persistent atrial fibrillation, status post complete left-sided maze using radiofrequency and cryo energy sources, clip ligation of the left atrial appendage 5. History of hypertension 6. History of hyperlipidemia, treated, cholesterol 120, LDL 43 7. Previous tobacco dependence, preoperative FEV1 70% of predicted 8. Opioid dependence on Suboxone outpatient 9. Preoperative myeloproliferative disorder with chronic leukopenia, anemia, and thrombocytopenia 10. Postoperative acute blood loss anemia and thrombocytopenia PRINCIPAL PROCEDURE: 1. Aortic valve replacement with a #25 mm Medtronic Avalus prosthetic aortic valve 2. Mitral valve repair with a 30 mm CarboMedics AnnuloFlex band 3. Closure of the patent foramen ovale 4. Complete left-sided maze using radiofrequency and cryo energy sources 5. Clip ligation of the left atrial appendage with a 35 mm Atriclip 6. Intraoperative transesophageal echocardiogram HISTORY OF PRESENT ILLNESS: This is a 66-year-old gentleman who does not follow with a primary care physician on a regular basis as an outpatient, but does follow with Dr. Jose Olivares for his pain management and Dr. Gordillo for his cardiology care. Recently, the patient has had complaints of persistent fatigue, and decreased endurance which was progressive over the past several months. Subsequently, due to the patient's above-mentioned complaints he underwent a transesophageal echocardiogram in March 2021 which showed a normal left ventricular size and systolic function, severe eccentric mitral valve regurgitation, severe aortic valve regurgitation, mild to moderate tricuspid valve regurgitation and a patent foramen ovale with left to right shunting. For further workup he underwent a cardiac catheterization in April 2021 which showed mild triple-vessel coronary artery disease and a trileaflet aortic valve with 3-4+ aortic valve regurgitation. Due to the patient's symptoms, and findings on his HARMEET and cardiac catheterization he was referred to Dr. Paxton Spain from cardiothoracic surgery. The patient did have multiple dental issues requiring multiple extractions before proceeding with surgery. In December 2021 a transthoracic echocardiogram was completed which demonstrated an ejection fraction between 50 and 55%, a dilated left atrium, a patent foramen ovale, moderate to severe aortic valve regurgitation and moderate to severe mitral valve regurgitation. A follow-up was completed with Dr. Paxton Spain, Dr. Spain did discuss the findings on the above mentioned studies, treatment options were discussed with the patient including the surgical option of aortic valve replacement, mitral valve repair/possible replacement, and closure of the PFO. Risks and benefits of the surgical option were discussed and knowing and understanding these risks the patient wished to proceed with the surgical option. HOSPITAL COURSE: The patient was brought to the preoperative area on 03/29/2022, and after obtaining consent was prepared in the usual fashion and subsequently taken the operating room where Dr. Paxton Spain performed an aortic valve replacement with a 25 mm Medtronic Avalus prosthetic aortic valve, mitral valve repair with a 30 mm CarboMedics AnnuloFlex band, closure of patent foramen ovale, complete left-sided maze using radiofrequency and cryo-energy sources and a clip ligation of the left atrial appendage with a 35 mm Atriclip. Upon completion of the surgery the patient was transferred to the cardiovascular intensive care unit where he was recovered and monitored hemodynamically. He was extubated, all lines, tubes and supportive drips were discontinued when appropriate and transfer orders were placed to the third floor cardiac stepdown unit for further monitoring and rehabilitation, although due to lack of bed availability on the cardiac stepdown unit he was kept in the intensive care unit until discharge. His oxygen was titrated down, he continued to work with this goal and occupational therapy, he was tolerating an oral diet, his pain was well-controlled and he was ready to be discharged home with [facility] on postoperative day #4. He has received written and verbal instructions regarding his medications, activity restrictions, signs and symptoms requiring physician notification and his follow-up appointment. Plan - Discharge Summary Discharge Rx Participant: Yes New Discharge Prescriptions: New Aspirin 81 mg PO DAILY #30 tab Amiodarone [Cordarone] 400 mg PO BID #35 tab Furosemide [Lasix] 20 mg PO DAILY #5 tab Metoprolol Tartrate [Lopressor] 12.5 mg PO BID #60 tab Pantoprazole [Protonix] 40 mg PO AC-BRKFST #30 tab Ascorbic Acid [Vitamin C] 500 mg PO BID-W/MEALS #14 tab Ferrous Sulfate [Iron (65 MG Elemental)] 325 mg PO BID-W/MEALS #14 tab Sennosides-Docusate Sodium [Senokot-S] 2 each PO HS #14 tab Acetaminophen Tab [Tylenol] 1,000 mg PO Q6HR PRN tab PRN Reason: Fever And/ Or Pain Continue Apixaban [Eliquis] 5 mg PO BID LORazepam [Ativan] 0.5 mg PO BID Escitalopram Oxalate [Lexapro] 20 mg PO QAM Buprenorphine HCl/Naloxone HCl [Suboxone 8 mg-2 mg Sl Film] 0.5 each SL QAM Rosuvastatin [Crestor] 10 mg PO DAILY Buprenorphine HCl/Naloxone HCl [Suboxone 8 mg-2 mg Sl Film] 1 each SL 1600 Discontinued Digoxin [Lanoxin] 125 mcg PO QAM Metoprolol Tartrate [Lopressor] 100 mg PO QAM Metoprolol Tartrate [Lopressor] 50 mg PO HS Mupirocin [Mupirocin 2%] 1 applic NASAL BID #1 tub Discharge Medication List Apixaban [Eliquis] 5 mg PO BID 06/25/17 [History] Buprenorphine HCl/Naloxone HCl [Suboxone 8 mg-2 mg Sl Film] 0.5 each SL QAM 03/12/21 [History] Buprenorphine HCl/Naloxone HCl [Suboxone 8 mg-2 mg Sl Film] 1 each SL 1600 03/12/21 [History] Escitalopram Oxalate [Lexapro] 20 mg PO QAM 03/12/21 [History] LORazepam [Ativan] 0.5 mg PO BID 03/12/21 [History] Rosuvastatin [Crestor] 10 mg PO DAILY 12/16/21 [History] Acetaminophen Tab [Tylenol] 1,000 mg PO Q6HR PRN tab 04/02/22 [Rx] Amiodarone [Cordarone] 400 mg PO BID #35 tab 04/02/22 [Rx] Ascorbic Acid [Vitamin C] 500 mg PO BID-W/MEALS #14 tab 04/02/22 [Rx] Aspirin 81 mg PO DAILY #30 tab 04/02/22 [Rx] Ferrous Sulfate [Iron (65 MG Elemental)] 325 mg PO BID-W/MEALS #14 tab 04/02/22 [Rx] Furosemide [Lasix] 20 mg PO DAILY #5 tab 04/02/22 [Rx] Metoprolol Tartrate [Lopressor] 12.5 mg PO BID #60 tab 04/02/22 [Rx] Pantoprazole [Protonix] 40 mg PO AC-BRKFST #30 tab 04/02/22 [Rx] Sennosides-Docusate Sodium [Senokot-S] 2 each PO HS #14 tab 04/02/22 [Rx] Follow up Appointment(s)/Referral(s): Bora Adams MD [STAFF PHYSICIAN] - 2 Weeks Johnathon Gordillo MD [STAFF PHYSICIAN] - 2 Weeks Jeanna Donahue NPC [Nurse Practitioner] - 04/08/22 11:30 am (Please follow up with [email or web address] [address] [address], [facility], [address]. Office number is [phone].) oJse Olivares, [REFERRING] - 10 Days [facility] - ([facility] a [facility] Paxton Spain MD [STAFF PHYSICIAN] - 4 Weeks ([place] from Dr. Spain's office will call with a follow-up appointment.) Ambulatory/Diagnostic Orders: Complete Blood Count w/diff [LAB.AMB] Time Frame: 04/05/22, Facility: [facility], Location: Laboratory [facility] Comprehensive Metabolic Panel [LAB.AMB] Time Frame: 04/05/22, Facility: [facility], Location: Laboratory [facility] Activity/Diet/Wound Care/Special Instructions: DISCHARGE INSTRUCTIONS: 1. No driving for 4 weeks, or until physician gives their ok. 2. The patient should sleep in their own bed, no medical bed needed. 3. Stairs are not an issue. If the bedroom is upstairs, it is advised that the patient go up at night and down in the morning for the first week. Go slowly, using handrail and take 1 step at a time. 4. BRANDON hose are to be worn for 30 days or until physician discontinues. 5. Heart hugger is to be worn 100% of the time until physician discontinues.(except when showering) 6. No lifting, pushing, or pulling more than 10 pounds for 12 weeks. The physician will advise of any restriction changes. 7. The patient is expected to continue the prescribed walking program. 8. Continue pain control per as needed orders. 9. Continue with incentive spirometry and splinting/heart hugger until otherwise directed by the physician. 10. Must shower daily using liquid antibacterial soap and a separate white washcloth for each individual incision. 11. Routine sternal incision care. No powders, lotions, ointments on incisions. No dressings are necessary on incisions unless they are draining. Dermabond tape is to remain on sternal incision until surgeon follow-up. 12. Please call surgeon/PAPER MAKING MACHINE OPERATOR for temp greater than 101 F or purulent drainage from incisions. 13. You should weigh yourself daily, record and bring log with you to follow up appointments. 14. All prescriptions given by surgeon for 30 days. Refills need to be filled through route service manager/primary care physician. 15. A Red armband has been placed on the patient. It should be worn for 30 days post surgery and will be removed by the cardiac surgeons. If an ER visit is necessary, please make sure the number on the Red armband is called. 16. You have been referred to and are expected to begin Cardiac Rehab in approximately 4-6 weeks. SUBACUTE REHAB/HOME HEALTH SERVICES TO PROVIDE: RN SKILLED HOME CARE SERVICES FOR POST-OP SURGICAL PATIENTS WITH THE FOLLOWING: Coronary Artery Bypass Surgery (CABG), Mitral Valve Replacement/Repair ( MVR), Aortic Valve Replacement/Repair (AVR) RN TO CONTINUE EDUCATION FROM ``ROAD TO A HEALTH HEART PATIENT EDUCATION MANUAL (GIVEN TO PATIENT IN THE HOSPITAL) MEDICATION RECONCILIATION WITH EDUCATION NEEDED ON FIRST HOME VISIT EMPHASIZE IMPORTANCE OF WEARING BREAST SUPPORT/HEART HUGGER ENCOURAGE USE OF INCENTIVE SPIROMETER 10 X EVERY HOUR WHILE AWAKE ENCOURAGE UTILIZATION OF LOWER EXTREMITY COMPRESSION STOCKINGS/BRANDON HOSE and ELEVATE LEGS ABOVE LEVEL OF HEART WHILE AT REST. ENCOURAGE AMBULATION 3-5x/day INCREASING TOLERATES, WHILE AVOIDING EXTREMES IN TEMPERATURE LABORATORY: CBC, CMP TO BE DRAWN ON THE THIRD DAY AT REHAB, (RAN STAT) FAX RESULTS TO [phone]. PARAMETERS: WEIGHT: NOTIFY SURGEON/PAPER MAKING MACHINE OPERATOR OF WEIGHT GAIN OF 2 LBS IN 24 HOURS OR 5 LBS IN ONE WEEK HR: NOTIFY SURGEON/PAPER MAKING MACHINE OPERATOR OF HR <55 BPM OR HR>100 BPM BP: NOTIFY SURGEON/PAPER MAKING MACHINE OPERATOR IF BP <90/55 OR BP>140/100 O2 SAT: NOTIFY SURGEON/PAPER MAKING MACHINE OPERATOR IF PO2<93% ON ROOM AIR *Amiodarone should be given according to instructions: 400 mg by mouth twice daily until 04/05/22, then on 04/06/22 200 mg twice daily for 7 days, then on 04/13/22 200 mg daily for 7 days then stop* Discharge Disposition: HOME WITH HOME HEALTH SERVICES
--- NOTE | 2022-04-02 12:31 | P.PN ---
Subjective Progress Note Date: 04/02/22 Principal diagnosis: Status post aortic valve replacement and mitral valve repair postoperative day #4 POD#1 aortic valve replacement with a #25 mm Medtronic Avalus bioprosthetic aortic valve, mitral valve repair with a #30 mm CarboMedics AnnuloFlex band, closure of patent foramen ovale, complete left-sided maze using radiofrequency and cryo energy sources, clip ligation of the left atrial appendage with a 35 mm AtriClip, intraoperative transesophageal echocardiogram. Patient underwent surgery yesterday, and postoperatively I was made aware of the patient at night, reviewed his ventilator settings, his vent settings were adjusted accordingly to the ABG, and few hours later I was notified about the patient on CPAP, I extubated the patient uneventfully. Patient was evaluated today, he is sitting at a bedside chair, not in any distress. Patient was extubated at 20:31, he is now paced at 70 bpm, has atrial pacing. He is hemodynamically stable, not requiring any pressors. On 2 L nasal cannula with O2 saturation 97%. He is on amiodarone at 0.5 mg/m. Chest x-ray showed minimal left basilar atelectasis. PA pressure is 27/8 CVP is 4, continues to have chest tubes in place Reevaluated today on 03/31/22, patient is sitting up in a recliner, he remains in the ICU, and overall the patient is doing well except he feels quite sore and weak. Chest x-ray showed minimal atelectasis at the bases. His hemoglobin is rather low today at 6.7, and he is to receive 1 unit of packed RBCs today. Continues to have multiple lines including right internal jugular Cordis, he has a mediastinal left and right pleural chest tubes and overall the patient is doing great, is not requiring any pressors not requiring any inotropic. Electrolytes and renal profile are normal. Reevaluated today on , patient is doing great, asymptomatic, he is on 2 L nasal cannula, pulling 1500 mL with his incentive spirometer. Chest x-ray showed minimal atelectasis. Patient is sitting at a bedside chair, awake oriented 3, hemodynamically stable, not requiring any inotropic or pressors. Had one episode of nausea earlier today and he was given Reglan. Patient is in atrial fibrillation rate 75/m. Received yesterday units of packed RBCs for a hemoglobin of 6.7. Hemoglobin today is 7.6. Other labs are unremarkable. All his wires and lines have been removed yesterday. Overall the patient is doing great Reevaluated today on 04/02/22, patient is doing great, asymptomatic, his postoperative day #4, patient is being considered for discharge. No issues over the last 24 hours, he is on room air, O2 saturations 94%. Patient is on no drips, his IV fluid is off. All his tubes and catheters have been removed. He is on eliquis. WBC count is 5.7 hemoglobin 8.4 electrolytes and renal profile are normal. Chest x-ray showed left lower lobe atelectasis, doubt infiltrate. Small bilateral pleural effusions Objective - Vital Signs Vital signs: Vital Signs Temp 98.0 F 04/02/22 08:00 Pulse 81 04/02/22 11:00 Resp 15 04/02/22 11:00 BP 99/70 04/02/22 11:00 Pulse Ox 94 L 04/02/22 07:00 FiO2 50 03/29/22 20:30 Intake & Output 04/01/22 04/02/22 04/02/22 18:59 06:59 18:59 Intake Total 200 200 150 Output Total 756 400 840 Balance -226 200 -690 Weight 78.1 kg Intake: Intake, IV Titration 200 Amount Magnesium Sulfate-D5w Pmx 200 1 gm In Dextrose/Water 1 100ml.bag @ 100 mls/hr IVPB Q1H [facility] Rx#: [id number] Oral 200 150 Output: Urine 700 400 840 Post Void Residual 56 Other: Voiding Method Urinal Urinal Urinal # Voids 1 # Bowel Movements 1 ABP, PAP, CO, CI - Last Documented Arterial Blood Pressure 95/54 Pulmonary Artery Pressure 32/9 Cardiac Output 5.6 Cardiac Index 3 - Exam Physical Exam: Revealed 66-year-old white male in no distress , on room air. head: Atraumatic, normocephalic. HEENT:[Neck is supple.] [No neck masses.] [No thyromegaly.] [No JVD.] Chest: Symmetrical chest expansion, fine crackles at the bases Cardiac Exam: Distant S1 and S2, no S3 gallop. 2/6 systolic murmur thought the precordium Abdomen: [Soft, nontender, no megaly, no rebound, no guarding, normal bowel sounds.] Extremities: [No clubbing, no edema, no cyanosis.] Neurological Exam: Alert and oriented 3 focal neurologic deficit psychiatric: Normal mood affect and normal mental status examination. Skin: No rash - Labs CBC & Chem 7: 04/02/22 06:47 04/02/22 06:47 Labs: Abnormal Lab Results - Last 24 Hours (Table) 04/01/22 04/01/22 04/02/22 Range/Units 16:31 20:06 06:47 RBC (4.30-5.90) m/uL Hgb (13.0-17.5) gm/dL Hct (39.0-53.0) % RDW (11.5-15.5) % Plt Count (150-450) k/uL Sodium 132 L (137-145) mmol/L Carbon Dioxide 31 H (22-30) mmol/L Creatinine 0.47 L (0.66-1.25) mg/dL POC Glucose (mg/dL) 120 H 128 H (70-110) mg/dL Calcium 8.1 L (8.4-10.2) mg/dL 04/02/22 04/02/22 Range/Units 06:47 11:39 RBC 2.79 L (4.30-5.90) m/uL Hgb 8.4 L (13.0-17.5) gm/dL Hct 25.3 L (39.0-53.0) % RDW 18.4 H (11.5-15.5) % Plt Count 132 L D (150-450) k/uL Sodium (137-145) mmol/L Carbon Dioxide (22-30) mmol/L Creatinine (0.66-1.25) mg/dL POC Glucose (mg/dL) 113 H (70-110) mg/dL Calcium (8.4-10.2) mg/dL Assessment and Plan Assessment: Impression: Status post aortic valve replacement, mitral valve repair and closure of patent foramen ovale, postoperative day #4 Benign essential hypertension Chronic atrial fibrillation Tobacco dependence syndrome Dyslipidemia Opioid dependence Myeloproliferative disorder Postoperative anemia, mostly related to acute blood loss and chronic anemia. Expected. Recommendation: aspirin statins and beta blockers and continue amiodarone. Continue incentive spirometry Agree with discharge planning home today, follow up on outpatient basis Time with Patient: Less than 30
[2022-04-02 12:42] VITALS: RESP 16; TEMP 97.8
[2022-04-03] MEDS ORDERED: FUROSEMIDE 20 MG TAB PO SCH (09:00)
== END 2022-04-02 13:07 | disposition home health service (06) | DRG 220 ==
LOC: 2ORMAIN 03-29 05:37 → 2SICU 03-29 11:52
PROVIDERS: ADMIT Thoracic Surgery (Cardiothoracic Vascular Surgery); ATTEND Thoracic Surgery (Cardiothoracic Vascular Surgery)
PROC: 5A1221Z Performance of Cardiac Output, Continuous (ICD-10-PCS; principal; 2022-03-29 08:00)
PROC: 02Q50ZZ Repair Atrial Septum, Open Approach (ICD-10-PCS; principal; 2022-03-29 08:00)
PROC: 02RF08Z Replacement of Aortic Valve with Zooplastic Tissue, Open Approach (ICD-10-PCS; principal; 2022-03-29 08:00)
PROC: 02QG0ZZ Repair Mitral Valve, Open Approach (ICD-10-PCS; principal; 2022-03-29 08:00)
PROC: 02L70CK Occlusion of Left Atrial Appendage with Extraluminal Device, Open Approach (ICD-10-PCS; principal; 2022-03-29 08:00)
PROC: B24BZZ4 Ultrasonography of Heart with Aorta, Transesophageal (ICD-10-PCS; principal; 2022-03-29 08:00)
PROC: 30233R1 Transfusion of Nonautologous Platelets into Peripheral Vein, Percutaneous Approach (ICD-10-PCS; 2022-03-29 08:00)
PROC: 30233K1 Transfusion of Nonautologous Frozen Plasma into Peripheral Vein, Percutaneous Approach (ICD-10-PCS; 2022-03-29 08:00)
PROC: 30233N1 Transfusion of Nonautologous Red Blood Cells into Peripheral Vein, Percutaneous Approach (ICD-10-PCS; 2022-03-31)
DX: I08.3 Combined rheumatic disorders of mitral, aortic and tricuspid valves (principal); C94.6 Myelodysplastic disease, not elsewhere classified; D62 Acute posthemorrhagic anemia; F11.20 Opioid dependence, uncomplicated; I48.19 Other persistent atrial fibrillation; I48.92 Unspecified atrial flutter; J98.11 Atelectasis; Q21.1 Atrial septal defect; Z00.6 Encounter for examination for normal comparison and control in clinical research program; D69.6 Thrombocytopenia, unspecified; E78.5 Hyperlipidemia, unspecified; F17.210 Nicotine dependence, cigarettes, uncomplicated; I10 Essential (primary) hypertension; I25.10 Atherosclerotic heart disease of native coronary artery without angina pectoris; K59.00 Constipation, unspecified; G89.29 Other chronic pain; M54.9 Dorsalgia, unspecified; Z87.01 Personal history of pneumonia (recurrent); Z79.01 Long term (current) use of anticoagulants; Z79.82 Long term (current) use of aspirin; Z79.899 Other long term (current) drug therapy
CPT/HCPCS: 36430; 71045; 71046; 80048; 80053; 82330; 82805; 83735; 85025; 85027; 85610; 85730; 86850; 86891; 86900; 86901; 86920; 88305; 88311; 94640

== ENCOUNTER → 2022-05-05 | Day surgery (SDC) | payer MEDICARE ==
[~2022-05-05] MED LIST changes: -ALPRAZolam 0.25 MG TAB PO PRN; -ALPRAZolam 0.5 MG TAB PO PRN; -ASPIRIN 325 MG TAB PO STA; -HEPARIN SODIUM,PORCINE 10,000 UNIT in SODIUM CHLORIDE 0.9% 1,000 ML IRRIGATION PRN; -HEPARIN SODIUM,PORCINE 2,500 UNIT in SODIUM CHLORIDE 0.9% 250 ML IRRIGATION PRN; -NITROGLYCERIN SL TABS 0.4 MG TAB SUBLINGUAL PRN; -SODIUM CHLORIDE 0.9% 1,000 ML in EMPTY BAG 1 BAG IV ONE; +SODIUM CHLORIDE 0.9% 500 ML 500 ML in EMPTY BAG 1 BAG IV PRN
[2022-05-05 11:55] VITALS: TEMP 98
--- NOTE | 2022-05-05 12:02 | US ---
EXAMINATION TYPE: US chest DATE OF EXAM: 05/05/2022 COMPARISON: Chest x-ray 3 days ago CLINICAL HISTORY: J90 Pleural Effusion. Abnormal x-ray. TECHNIQUE: Targeted ultrasound of the posterior lower bilateral hemithoraces EXAM MEASUREMENTS: Right Pleural Effusion pocket size: 0.5 cm Left Pleural Effusion pocket size: 10.9 cm Left skin surface to fluid distance: 2.7 cm Right side not marked for possible thoracentesis outside the dept. Left side marked for possible thoracentesis outside the dept. Pulmonologists are able to review the images in the patient?s EMR. Moderate size left pleural effusion is confirmed, not completely anechoic on images saved. No signifi cant right-sided pleural effusion. IMPRESSIONS: As above.
[2022-05-05 12:42] VITALS: PULSE 65; RESP 15
[2022-05-05 12:53] VITALS: BP 86/58
--- NOTE | 2022-05-05 12:58 | XR ---
EXAMINATION TYPE: XR chest 1V portable DATE OF EXAM: 05/05/2022 COMPARISON: Chest x-ray May 02, 2022 HISTORY: Left-sided pleural effusion status post thoracentesis. TECHNIQUE: Single AP portable frontal upright view of the chest is obtained. FINDINGS: There is improved left-sided pleural effusion after thoracentesis. No pneumothorax is evid ent. Persistent left basilar opacity. Right lung remains clear. The cardiac silhouette size is stable and mildly enlarged with left atrial appendage clip redemonstrated. Overlying sternal wires redemon strated. The osseous structures are intact. IMPRESSION: Improved left-sided pleural effusion after thoracentesis. No significant residual effusi on. No pneumothorax. Persistent left basilar opacity favoring scarring and/or atelectasis. Other etio logies not excluded. Correlate with pathology lab results from thoracentesis.
--- NOTE | 2022-05-05 13:18 | OP ---
OPERATIVE REPORT PROCEDURE PERFORMED: Left-sided thoracentesis. PREOPERATIVE DIAGNOSIS: Left pleural effusion. POSTOPERATIVE DIAGNOSIS: Left pleural effusion. ANESTHESIA USED: 5 mL of 1% lidocaine. PROCEDURE IN DETAIL: The patient was placed in a sitting upright position. The area below the left scapula was prepared in a sterile fashion and drapes were applied. The area of the fluid was earlier localized by ultrasound guidance. At the level of the 8th intercostal space and tip of the scapula, the area was locally anesthetized with lidocaine. Then, a needle was introduced into the pleural space until the fluid was localized to the needle and was noted to be serosanguineous fluid. Then, a small tiny incision was made, and a standard thoracentesis catheter and needle were used. The needle was inserted at the same site, advanced into the pleural space, and as soon as the fluid was obtained, the catheter was advanced over the needle into the left pleural space, and the needle was pulled out of the pleural space. Freely flowing serosanguineous fluid was removed from the left pleural space. A total of 1850 mL of bloody effusion removed from the pleural space. Procedure was well tolerated. No complications. Chest x-ray was ordered and it is pending at the time of dictation. The fluid was sent for different diagnostic studies. Again, no complications/no immediate complications. MMODL / IJN: [id number] /
[2022-05-06 01:37] LABS: Appearance,BF Bloody
== END ==
LOC: PROCWHC3 11:25
PROVIDERS: ATTEND Internal Medicine
DX: J90 Pleural effusion, not elsewhere classified (principal); Z95.1 Presence of aortocoronary bypass graft; I10 Essential (primary) hypertension; I48.0 Paroxysmal atrial fibrillation; E78.5 Hyperlipidemia, unspecified; Z87.01 Personal history of pneumonia (recurrent); F11.20 Opioid dependence, uncomplicated; Z87.891 Personal history of nicotine dependence; Z90.49 Acquired absence of other specified parts of digestive tract; Z95.2 Presence of prosthetic heart valve; Z98.890 Other specified postprocedural states; Z79.01 Long term (current) use of anticoagulants; Z79.899 Other long term (current) drug therapy
CPT/HCPCS: 88108; 88305; 89050; 87070; 87205; 87075; 87116; 87206; 71045; 76604; 32554; J2001

== ENCOUNTER → 2022-07-05 | Outpatient (CLI) | payer MEDICARE ==
[2022-07-05 14:50] LABS: Luteinizing Hormone 14.3 mIU/mL
[2022-07-05 14:59] LABS: ALT 22 U/L (10-49); AST 30 U/L (14-35); African American GFR (CKD) 108.6 (60.0-200.0); Albumin/Globulin Ratio 1.67 (1.60-3.17); Alkaline Phosphatase 98 U/L (41-126); Blood Urea Nitrogen 19.2 mg/dL (9.0-27.0); Calcium 9.2 mg/dL (8.7-10.3); Carbon Dioxide 25.5 mmol/L (20.0-27.5); Chloride 102 mmol/L (96-109); Chol/HDL Ratio 2.35 Ratio; Globulin 2.4 g/dL (1.6-3.3); Glucose 98 mg/dL (70-110); Iron 85 ug/dL (65-175); LDL Cholesterol,Calculated 50.9 mg/dL (0.0-131.0); Non-African American GFR(CKD) 93.7 (60.0-200.0); Potassium 4.1 mmol/L (3.5-5.5); Sodium 138 mmol/L (135-145); Total Protein 6.4 g/dL (6.2-8.2)
[2022-07-05 15:01] LABS: Estradiol <5.0 pg/mL
[2022-07-05 15:04] LABS: Prostate Specific Antigen <0.01 ng/mL (0.00-4.50)
[2022-07-05 18:21] LABS: Basophils # (A) 0.05 X 10*3/uL (0.00-0.10); Basophils % (A) 1.3 %; Eosinophils # (A) 0.38 X 10*3/uL (0.04-0.35); Eosinophils % (A) 9.5 %; HCT 31.5 % (39.6-50.0); HGB 10.1 g/dL (13.0-17.0); Immature Grans, Automated 0.3 %; Lymphocytes # (A) 0.76 X 10*3/uL (0.90-5.00); MCH 29.2 pg (27.0-32.0); MCHC 32.1 g/dL (32.0-37.0); Mean Platelet Volume 11.5 fL (9.5-12.2); Monocytes # (A) 0.37 X 10*3/uL (0.20-1.00); Monocytes % (A) 9.3 %; NRBC Per 100 WBC 0 /100 WBCS (0.0-0.0); Neutrophils # (A) 2.43 X 10*3/uL (1.80-7.70); Neutrophils % (A) 60.6 %; Platelet Count 151 X 10*3/uL (140-440); RBC 3.46 X 10*6/uL (4.40-5.60); RDW 15.9 % (11.5-14.5)
== END | disposition home or self-care (01) ==
LOC: LABWHC1 10:51
PROVIDERS: ATTEND Internal Medicine
DX: E78.5 Hyperlipidemia, unspecified (principal); R25.2 Cramp and spasm; E29.9 Testicular dysfunction, unspecified
CPT/HCPCS: 36415; 80053; 80061; 82040; 82607; 82626; 82642; 82670; 82746; 83002; 83540; 84153; 84270; 84305; 84403; 84439; 84443; 85025

== ENCOUNTER → 2022-08-09 | Outpatient (CLI) | payer MEDICARE ==
[2022-08-09 19:23] LABS: ALT 16 U/L (10-49); AST 25 U/L (14-35); African American GFR (CKD) 107.4 (60.0-200.0); Albumin 3.7 g/dL (3.8-4.9); Albumin/Globulin Ratio 1.42 (1.60-3.17); Alkaline Phosphatase 78 U/L (41-126); BUN/Creat Ratio 8.84 Ratio (12.00-20.00); Blood Urea Nitrogen 7.3 mg/dL (9.0-27.0); Calcium 9.4 mg/dL (8.7-10.3); Carbon Dioxide 28.4 mmol/L (20.0-27.5); Chloride 100 mmol/L (96-109); Chol/HDL Ratio 2.87 Ratio; Globulin 2.6 g/dL (1.6-3.3); Glucose 101 mg/dL (70-110); LDL Cholesterol,Calculated 54.5 mg/dL (0.0-131.0); Non-African American GFR(CKD) 92.7 (60.0-200.0); Potassium 3.7 mmol/L (3.5-5.5); Sodium 139 mmol/L (135-145); Total Protein 6.3 g/dL (6.2-8.2)
== END | disposition home or self-care (01) ==
LOC: LABWHC1 12:52
PROVIDERS: ATTEND Internal Medicine Clinical Cardiac Electrophysiology
DX: I35.1 Nonrheumatic aortic (valve) insufficiency (principal); I48.19 Other persistent atrial fibrillation; I25.10 Atherosclerotic heart disease of native coronary artery without angina pectoris
CPT/HCPCS: 36415; 80053; 80061; 84443

== ENCOUNTER 2023-03-22 17:04 | Emergency (ER) | payer MEDICARE ==
[2023-03-22] MEDS ORDERED: SODIUM CHLORIDE 0.9% 1,000 ML IV STA (18:32)
--- NOTE | 2023-03-22 19:06 | ED ---
Syncope HPI - General Chief Complaint: Dizziness Stated Complaint: Weakness,feeling off Time Seen by Provider: 03/22/23 18:32 Source: patient, family, RN notes reviewed, old records reviewed Mode of arrival: ambulatory Limitations: no limitations - History of Present Illness Initial Comments: This is a 67-year-old male to the ER today. Patient does continue to state that he is stressed out, feels significantly anxious with recent issues and his famil y and makes note of this throughout his history of present illness. He is presenting today for evaluation in regards to complaints of weakness, prior to arrival patient did have a syncopal event. This patient denies any chest pain weakness and shortness of breath currently. Patient has some significant anxiety here in the emergency room which is persistent. Patient is also complaining of right great toe pain and foot pain when he dropped something on his foot recently. Worst walk and bear weight on the right foot. Patient does have history of atrial fibrillation does take anticoagulation and rate control medication MD Complaint: loss of consciousness, felt faint -: hour(s) Prodromal Symptoms: headache -: second(s) Witnessed: yes - by bystander Injuries Sustained Associated with Event: None Current Symptoms: none History: previous syncopal episode Context: at rest Treatments Prior to Arrival: none - Related Data Home Medications Medication Instructions Recorded Confirmed Apixaban [Eliquis] 5 mg PO BID 06/25/17 05/05/22 Buprenorphine HCl/Naloxone HCl 0.5 each SL QAM 03/12/21 05/05/22 [Suboxone 8 mg-2 mg Sl Film] Buprenorphine HCl/Naloxone HCl 1 each SL 1600 03/12/21 05/05/22 [Suboxone 8 mg-2 mg Sl Film] Escitalopram Oxalate [Lexapro] 20 mg PO QAM 03/12/21 05/05/22 LORazepam [Ativan] 0.5 mg PO BID 03/12/21 05/05/22 Rosuvastatin [Crestor] 10 mg PO DAILY 12/16/21 05/05/22 Amiodarone [Cordarone] 200 mg PO BID 05/05/22 05/05/22 Previous Rx's Medication Instructions Recorded Aspirin 81 mg PO DAILY #30 tab 04/02/22 Metoprolol Tartrate [Lopressor] 12.5 mg PO BID #60 tab 04/02/22 Allergies Allergy/AdvReac Type Severity Reaction Status Date / Time No Known Allergies Allergy Verified 05/05/22 11:57 Review of Systems ROS Statement: Those systems with pertinent positive or pertinent negative responses have been documented in the HPI. ROS Other: All systems not noted in ROS Statement are negative. Past Medical History Past Medical History: Atrial Fibrillation, Hypertension Additional Past Medical History / Comment(s): Chronic back pain. History of Any Multi-Drug Resistant Organisms: None Reported Past Surgical History: Appendectomy, Cholecystectomy, Orthopedic Surgery Additional Past Surgical History / Comment(s): Right bicep tendon repair. Past Anesthesia/Blood Transfusion Reactions: No Reported Reaction Past Psychological History: Anxiety, Depression Smoking Status: Former smoker Past Alcohol Use History: None Reported Past Drug Use History: None Reported - Past Family History Mother Family Medical History: No Reported History General Exam Limitations: no limitations General appearance: alert, in no apparent distress, anxious Head exam: Present: atraumatic, normocephalic, normal inspection Eye exam: Present: normal appearance, PERRL, EOMI. Absent: scleral icterus, conjunctival injection, periorbital swelling ENT exam: Present: normal exam, mucous membranes moist Neck exam: Present: normal inspection. Absent: tenderness, meningismus, lymphadenopathy Respiratory exam: Present: normal lung sounds bilaterally. Absent: respiratory distress, wheezes, rales, rhonchi, stridor Cardiovascular Exam: Present: regular rate, tachycardia, irregular rhythm, normal heart sounds. Absent: systolic murmur, diastolic murmur, rubs, gallop, clicks GI/Abdominal exam: Present: soft, normal bowel sounds. Absent: distended, tenderness, guarding, rebound, rigid Extremities exam: Present: normal inspection, full ROM, normal capillary refill. Absent: tenderness, pedal edema, joint swelling, calf tenderness Back exam: Present: normal inspection Neurological exam: Present: alert, oriented X3, CN II-XII intact Psychiatric exam: Present: normal affect, normal mood Skin exam: Present: warm, dry, intact, normal color. Absent: rash Course Vital Signs 03/22/23 03/22/23 03/22/23 17:53 18:28 20:16 Temperature 98.3 F 97.6 F 97.7 F Pulse Rate 62 64 97 Respiratory 18 20 18 Rate Blood Pressure 101/71 124/98 122/93 O2 Sat by Pulse 96 99 97 Oximetry 03/22/23 03/22/23 03/22/23 21:36 22:28 22:31 Temperature 98.4 F 97.1 F L Pulse Rate 109 H 92 89 Respiratory 18 20 Rate Blood Pressure 121/82 138/101 O2 Sat by Pulse 95 98 Oximetry - Reevaluation(s) Reevaluation #1: 03/22/23 22:02 Records reviewed Reevaluation #2: 03/22/23 22:02 Patient symptoms are persistent here in the ER but he continues to deny chest pain or shortness of breath Reevaluation #3: 03/22/23 22:02 Patient informed of results and questions answered Reevaluation #4: 03/22/23 22:02 Was pt. sent in by a medical professional or institution? @ -no Did you speak to anyone other than the patient for history? @ -no Did you review nursing and triage notes? @ -agree Were old charts reviewed? @ -yes Differential Diagnosis? @ -prior EKG interpreted by me (3pts min.)? @ -yes X-rays interpreted by me (1pt min.)? @ -yes CT interpreted by me (1pt min.)? @ -no U/S interpreted by me (1pt. min.)? @ -no What testing was considered but not performed? (CT, X-rays, U/S, labs)? Why? @ -no What meds were considered but not given? Why? @ -no Did you discuss the management of the patient with other professionals? @ -no Did you reconcile home meds? @ -no Was smoking cessation discussed for >3mins.? @ -no Was critical care preformed (if so, how long)? @ -no Were there social determinants of health that impacted care today? How? (Homeles sness, low income, unemployed, alcoholism, drug addiction, transportation, low edu. Level, literacy, decrease access to med. care, fpc, rehab)? @ -no Was there de-escalation of care discussed even if they declined? (Discuss DNR or withdrawal of care, Hospice)? @ -no What co-morbidities impacted this encounter? (DM, HTN, Smoking, COPD, CAD, Cancer, CVA, Hep., AIDS, mental health diagnosis, sleep apnea, morbid obesity)? @ -none Was patient admitted / discharged? @ -67 male to the emergency department for evaluation of weakness not feeling well. Patient had a syncopal episode prior to arrival. Patient found to be in atrial fibrillation with RVR which he does have history of. Throughout ER stay patient feels well, feels good for discharge home patient continues to say that he has increased anxiety and stress and he does feel stressed out. Discharge Undiagnosed new problem with uncertain prognosis? @ -no Drug Therapy requiring intensive monitoring for toxicity (Heparin, Nitro, Insu heriberto, Cardizem)? @ -no Were any procedures done? @ -no Diagnosis/symptom? @ -Syncopal event Acute, or Chronic, or Acute on Chronic? @ -acute Uncomplicated (without systemic symptoms) or Complicated (systemic symptoms)? @ -complicated Side effects of treatment? @ -no Exacerbation, Progression, or Severe Exacerbation] @ -no Poses a threat to life or bodily function? @ -no Reevaluation #5: 03/22/23 22:02 Differential Weakness: Hypoglycemia, shock, sepsis, hyponatremia, anemia, infection, MS, ETOH, adverse medicine reaction, overdose, stroke, this is not meant to be an all-inclusive list. Differential Syncope: Valvular disease, hypertrophic cardiomyopathy, pulmonary embolism, tamponade, tachycardia, bradycardia, MS, hypovolemia, hemorrhage, dissection, anemia, intracranial hemorrhage, seizure, hypoglycemia, carbon monoxide poisoning, this is not meant to be an all-inclusive list. EKG Findings - EKG Comments: EKG Findings:: EKG is A. fib 98 QRS 92 QTC 395 - EKG Results: EKG: interpreted by [facility] Medical Decision Making - Medical Decision Making 67 male to the emergency department for evaluation of weakness not feeling well. Patient had a syncopal episode prior to arrival. Patient found to be in atrial fibrillation with RVR which he does have history of. Throughout ER stay patient feels well, feels good for discharge home patient continues to say that he has increased anxiety and stress and he does feel stressed out. - Lab Data Result diagrams: 03/22/23 18:50 03/22/23 18:50 Lab Results 03/22/23 03/22/23 03/22/23 Range/Units 18:50 18:50 18:50 WBC 4.7 (3.8-10.6) k/uL RBC 5.02 (4.30-5.90) m/uL Hgb 14.5 (13.0-17.5) gm/dL Hct 45.1 (39.0-53.0) % MCV 89.8 (80.0-100.0) fL MCH 29.0 (25.0-35.0) pg MCHC 32.3 (31.0-37.0) g/dL RDW 14.2 (11.5-15.5) % Plt Count 184 (150-450) k/uL MPV 8.8 Neutrophils % 56 % Lymphocytes % 30 % Monocytes % 6 % Eosinophils % 5 % Basophils % 0 % Neutrophils # 2.6 (1.3-7.7) k/uL Lymphocytes # 1.4 (1.0-4.8) k/uL Monocytes # 0.3 (0-1.0) k/uL Eosinophils # 0.2 (0-0.7) k/uL Basophils # 0.0 (0-0.2) k/uL PT 10.5 (9.0-12.0) sec INR 1.0 (<1.2) APTT 27.0 (22.0-30.0) sec Sodium (137-145) mmol/L Potassium (3.5-5.1) mmol/L Chloride (98-107) mmol/L Carbon Dioxide (22-30) mmol/L Anion Gap mmol/L BUN (9-20) mg/dL Creatinine (0.66-1.25) mg/dL Est GFR (CKD-EPI)AfAm (>60 ml/min/1.73 sqM) Est GFR (CKD-EPI)NonAf (>60 ml/min/1.73 sqM) Glucose (74-99) mg/dL Plasma Lactic Acid Braden (0.7-2.0) mmol/L Calcium (8.4-10.2) mg/dL Phosphorus (2.5-4.5) mg/dL Magnesium (1.6-2.3) mg/dL Total Bilirubin (0.2-1.3) mg/dL AST (17-59) U/L ALT (4-49) U/L Alkaline Phosphatase (38-126) U/L Troponin I (0.000-0.034) ng/mL Total Protein (6.3-8.2) g/dL Albumin (3.5-5.0) g/dL TSH (0.465-4.680) mIU/L Urine Color Yellow Urine Appearance Clear (Clear) Urine pH 8.0 (5.0-8.0) Ur Specific [place] 1.024 (1.001-1.035) Urine Protein 1+ H (Negative) Urine Glucose (UA) Negative (Negative) Urine Ketones Negative (Negative) Urine Blood Negative (Negative) Urine Nitrite Negative (Negative) Urine Bilirubin Negative (Negative) Urine Urobilinogen 3.0 (<2.0) mg/dL Ur Leukocyte Esterase Negative (Negative) Urine RBC 1 (0-5) /hpf Urine WBC <1 (0-5) /hpf Urine Mucus Rare H (None) /hpf 03/22/23 03/22/23 03/22/23 Range/Units 18:50 18:50 18:50 WBC (3.8-10.6) k/uL RBC (4.30-5.90) m/uL Hgb (13.0-17.5) gm/dL Hct (39.0-53.0) % MCV (80.0-100.0) fL MCH (25.0-35.0) pg MCHC (31.0-37.0) g/dL RDW (11.5-15.5) % Plt Count (150-450) k/uL MPV Neutrophils % % Lymphocytes % % Monocytes % % Eosinophils % % Basophils % % Neutrophils # (1.3-7.7) k/uL Lymphocytes # (1.0-4.8) k/uL Monocytes # (0-1.0) k/uL Eosinophils # (0-0.7) k/uL Basophils # (0-0.2) k/uL PT (9.0-12.0) sec INR (<1.2) APTT (22.0-30.0) sec Sodium 136 L (137-145) mmol/L Potassium 4.2 (3.5-5.1) mmol/L Chloride 101 (98-107) mmol/L Carbon Dioxide 27 (22-30) mmol/L Anion Gap 8 mmol/L BUN 14 (9-20) mg/dL Creatinine 0.92 (0.66-1.25) mg/dL Est GFR (CKD-EPI)AfAm >90 (>60 ml/min/1.73 sqM) Est GFR (CKD-EPI)NonAf 87 (>60 ml/min/1.73 sqM) Glucose 83 (74-99) mg/dL Plasma Lactic Acid Braden 0.9 (0.7-2.0) mmol/L Calcium 8.9 (8.4-10.2) mg/dL Phosphorus 3.7 (2.5-4.5) mg/dL Magnesium 2.0 (1.6-2.3) mg/dL Total Bilirubin 0.8 (0.2-1.3) mg/dL AST 43 (17-59) U/L ALT 38 (4-49) U/L Alkaline Phosphatase 56 (38-126) U/L Troponin I <0.012 (0.000-0.034) ng/mL Total Protein 6.5 (6.3-8.2) g/dL Albumin 3.7 (3.5-5.0) g/dL TSH 0.533 (0.465-4.680) mIU/L Urine Color Urine Appearance (Clear) Urine pH (5.0-8.0) Ur Specific [place] (1.001-1.035) Urine Protein (Negative) Urine Glucose (UA) (Negative) Urine Ketones (Negative) Urine Blood (Negative) Urine Nitrite (Negative) Urine Bilirubin (Negative) Urine Urobilinogen (<2.0) mg/dL Ur Leukocyte Esterase (Negative) Urine RBC (0-5) /hpf Urine WBC (0-5) /hpf Urine Mucus (None) /hpf - EKG Data -: EKG Interpreted by [facility] Rate: tachycardia (Recurrent atrial fibrillation with RVR) - Radiology Data Radiology results: report reviewed (Chest x-ray and foot x-rays negative for acute disease), image reviewed Disposition Clinical Impression: Dehydration, Atrial fibrillation with RVR, Syncope Disposition: HOME SELF-CARE Condition: Good Instructions (If sedation given, give patient instructions): Syncope (ED) Is patient prescribed a controlled substance at d/c from ED?: No Referrals: None,Stated [Primary Care Provider] - 1-2 days Time of Disposition: 22:10
[2023-03-22 19:31] LABS: Basophils % (A) 0 %; Eosinophils # (A) 0.2 k/uL (0-0.7); Eosinophils % (A) 5 %; HCT 45.1 % (39.0-53.0); HGB 14.5 gm/dL (13.0-17.5); Lymphocytes # (A) 1.4 k/uL (1.0-4.8); Lymphocytes % (A) 30 %; MCHC 32.3 g/dL (31.0-37.0); MCV 89.8 fL (80.0-100.0); Mean Platelet Volume 8.8; Monocytes # (A) 0.3 k/uL (0-1.0); Monocytes % (A) 6 %; Neutrophils # (A) 2.6 k/uL (1.3-7.7); Neutrophils % (A) 56 %; Platelet Count 184 k/uL (150-450); RBC 5.02 m/uL (4.30-5.90); RDW 14.2 % (11.5-15.5); WBC 4.7 k/uL (3.8-10.6)
[2023-03-22 19:49] LABS: Prothrombin Time 10.5 sec (9.0-12.0)
[2023-03-22 19:52] LABS: ALT 38 U/L (4-49); AST 43 U/L (17-59); African American GFR (CKD) >90 (>60 ml/min/1.73 sqM); Albumin 3.7 g/dL (3.5-5.0); Alkaline Phosphatase 56 U/L (38-126); Anion Gap 8 mmol/L; Blood Urea Nitrogen 14 mg/dL (9-20); Calcium 8.9 mg/dL (8.4-10.2); Carbon Dioxide 27 mmol/L (22-30); Chloride 101 mmol/L (98-107); Glucose 83 mg/dL (74-99); Non-African American GFR(CKD) 87 (>60 ml/min/1.73 sqM); Phosphorus 3.7 mg/dL (2.5-4.5); Potassium 4.2 mmol/L (3.5-5.1); Sodium 136 mmol/L (137-145); Total Bilirubin 0.8 mg/dL (0.2-1.3); Total Protein 6.5 g/dL (6.3-8.2)
[2023-03-22 20:02] LABS: Appearance,Urine Clear (Clear); Bilirubin,Urine Negative (Negative); Blood,Urine Negative (Negative); Color,Urine Yellow; Glucose,Urine (UA) Negative (Negative); Ketones,Urine Negative (Negative); Leukocyte Esterase,Urine Negative (Negative); Mucus,Urine Rare /hpf; Nitrite,Urine Negative (Negative); Protein,Urine 1+ (Negative); RBC,Urine 1 /hpf (0-5); Specific Gravity,Urine 1.024 (1.001-1.035); WBC,Urine <1 /hpf (0-5)
--- NOTE | 2023-03-22 20:25 | XR ---
EXAMINATION TYPE: XR chest 1V DATE OF EXAM: 03/22/2023 COMPARISON: 05/05/2022 INDICATION: Chest pain TECHNIQUE: Single frontal view of the chest is obtained. FINDINGS: The heart size is enlarged. Sternotomy wires are present from prior surgery The pulmonary vasculature is normal. The lungs are clear. IMPRESSION: 1. No acute pulmonary process.
--- NOTE | 2023-03-22 20:25 | XR ---
EXAMINATION TYPE: XR foot complete RT DATE OF EXAM: 03/22/2023 COMPARISON: None HISTORY: Pain TECHNIQUE: 3 view right foot FINDINGS: There is advanced degenerative change first metatarsophalangeal joint space. Osseous hypert rophy of the inferior first metatarsal is present. Follow up exams can be performed 7-10 days from acute trauma for continued pain IMPRESSION: 1. Advanced degenerative change and osseous hypertrophy of the distal first metatarsal at the first metatarsophalangeal joint space
[2023-03-22 22:36] VITALS: BP 138/101; PULSE 89; RESP 20; TEMP 97.1
== END 2023-03-22 22:44 | disposition home or self-care (01) ==
LOC: EC 17:04
DX: E86.0 Dehydration (principal); I48.91 Unspecified atrial fibrillation; R55 Syncope and collapse; I10 Essential (primary) hypertension; F41.9 Anxiety disorder, unspecified; F32.A Depression, unspecified; Z79.01 Long term (current) use of anticoagulants; Z79.899 Other long term (current) drug therapy; Z87.891 Personal history of nicotine dependence
CPT/HCPCS: 36415; 71045; 80053; 81001; 83605; 83735; 84100; 84443; 84484; 85025; 85610; 85730; 93005; 96360; 99285

== ENCOUNTER 2023-05-17 11:40 | Emergency (ER) | payer MEDICARE ==
--- NOTE | 2023-05-17 12:08 | ED ---
General Adult HPI - General Source: patient, RN notes reviewed Mode of arrival: ambulatory Limitations: no limitations <Raimundo Stuart - Last Filed: 05/17/23 12:07> <Cinthya Vaca - Last Filed: 05/17/23 18:47> - General Stated complaint: Kidney stones Time Seen by Provider: 05/17/23 12:07 - History of Present Illness Initial comments: 67-year-old male presents emergency Department chief complaint of mid back pain states it's towards his flank, kidney area. Patient states his been worse over the last 2 days. is concerned about possible kidney stones. Patient states he generally does not feel well he is tried multiple things at home no relief. Patient had mild diarrhea. (Raimundo Stuart) Note reviewed. This is a pleasant 67-year-old male with a past medical history of chronic back pain who presents the emergency department with a chief complaint of mid back pain that he localizes to bilateral flanks. Does not worsening pain over the last 2 days. He describes the pain as sharp and worse with movement. He reports also a accompanying symptoms of diarrhea. He reports that he stopped taking his Suboxone himself. He also reports starting a new herbal supplements which she started on his own. His own research. He denies recent sick contacts. Denies fever, chills, sore throat, melena, hematochezia, dysuria, hematuria. (Cinthya Vaca) - Related Data Home Medications Medication Instructions Recorded Confirmed Apixaban [Eliquis] 5 mg PO BID 06/25/17 05/05/22 Buprenorphine HCl/Naloxone HCl 0.5 each SL QAM 03/12/21 05/05/22 [Suboxone 8 mg-2 mg Sl Film] Buprenorphine HCl/Naloxone HCl 1 each SL 1600 03/12/21 05/05/22 [Suboxone 8 mg-2 mg Sl Film] Escitalopram Oxalate [Lexapro] 20 mg PO QAM 03/12/21 05/05/22 LORazepam [Ativan] 0.5 mg PO BID 03/12/21 05/05/22 Rosuvastatin [Crestor] 10 mg PO DAILY 12/16/21 05/05/22 Amiodarone [Cordarone] 200 mg PO BID 05/05/22 05/05/22 Previous Rx's Medication Instructions Recorded Aspirin 81 mg PO DAILY #30 tab 07/30/22 Metoprolol Tartrate [Lopressor] 12.5 mg PO BID #60 tab 04/02/22 Allergies Allergy/AdvReac Type Severity Reaction Status Date / Time No Known Allergies Allergy Verified 05/17/23 12:19 Review of Systems ROS Other: All systems not noted in ROS Statement are negative. <Raimundo Stuart - Last Filed: 05/17/23 12:07> ROS Other: All systems not noted in ROS Statement are negative. <Cinthya Vaca - Last Filed: 05/17/23 18:47> ROS Statement: Those systems with pertinent positive or pertinent negative responses have been documented in the HPI. Past Medical History Past Medical History: Atrial Fibrillation, Hypertension Additional Past Medical History / Comment(s): Chronic back pain. History of Any Multi-Drug Resistant Organisms: None Reported Past Surgical History: Appendectomy, Cholecystectomy, Orthopedic Surgery Additional Past Surgical History / Comment(s): Right bicep tendon repair. Past Anesthesia/Blood Transfusion Reactions: No Reported Reaction Past Psychological History: Anxiety, Depression Smoking Status: Former smoker Past Alcohol Use History: None Reported Past Drug Use History: None Reported - Past Family History Mother Family Medical History: No Reported History <Raimundo Stuart - Last Filed: 05/17/23 12:07> General Exam <Raimundo Stuart - Last Filed: 05/17/23 12:07> <Cinthya Vaca - Last Filed: 05/17/23 18:47> - General Exam Comments Initial Comments: Visual Physical Exam Vital signs reviewed General: Well-appearing, nontoxic, no acute distress. Head: Normocephalic, atraumatic Eyes: PERRLA, EOMI ENT: Airway patent Chest: Nonlabored breathing Skin: No visual rash, normal skin tone Neuro: Alert and oriented 3 Musculoskeletal: No gross abnormalities (Raimundo Stuart) General: Alert, in no acute distress Head: atraumatic normocephalic. Eyes PERRL, EOMI intact, mucous membranes moist Respiratory: Lungs clear to auscultation bilaterally Cardiovascular: Heart rate regular rate and rhythm Abdominal: Soft without guarding or rebound Extremities: Normal inspection with full range of motion and normal capillary refill Neuroogic: alert and oriented 3, CN II-XII intact, able to ambulate with steady gait Skin: warm dry and intact with normal color (Cinthya Vaca) Course Vital Signs 05/17/23 05/17/23 12:15 16:43 Temperature 98.3 F 98.5 F Pulse Rate 113 H 101 H Respiratory 18 16 Rate Blood Pressure 110/72 112/74 O2 Sat by Pulse 98 98 Oximetry Medical Decision Making <Raimundo Stuart - Last Filed: 05/17/23 12:07> - Lab Data Result diagrams: 05/17/23 12:24 05/17/23 12:24 <Cinthya Vaca - Last Filed: 05/17/23 18:47> - Medical Decision Making I performed a quick note portion of this Chart signed Raimundo Stuart PA-C (Raimundo Stuart) Was pt. sent in by a medical professional or institution (JAYRO Rodgers, PHYSIOLOGY TEACHER, urgent care, hospital, or alf...) When possible be specific @ -[No] Did you speak to anyone other than the patient for history (EMS, parent, family, police, friend...)? What history was obtained from this source @ - Did you review nursing and triage notes (agree or disagree)? Why? @ -[I reviewed and agree with nursing and triage notes] Were old charts reviewed (outside hosp., previous admission, EMS record, old EKG, old radiological studies, urgent care reports/EKG's, alf records)? Report findings @ -[No old charts were reviewed] Differential Diagnosis (chest pain, altered mental status, abdominal pain women, abdominal pain men, vaginal bleeding, weakness, fever, dyspnea, syncope, headache, dizziness, GI bleed, back pain, seizure, CVA, palpatations, mental health, musculoskeletal)? @ -[not applicable] EKG interpreted by me (3pts min.). @ -[As above] X-rays interpreted by me (1pt min.). @ -Chest x-ray and KUB x-ray unremarkable. No evidence of intrapleural process. CT interpreted by me (1pt min.). @ -[None done] U/S interpreted by me (1pt. min.). @ -[None done] What testing was considered but not performed or refused? (CT, X-rays, U/S, labs)? Why? @ -[None] What meds were considered but not given or refused? Why? @ -[None] Did you discuss the management of the patient with other professionals ( professionals i.e. , PA, PHYSIOLOGY TEACHER, lab, RT, psych nurse, social psychologist, bean dumper, teacher, production officer, case aide)? Give summary @ -[No] Was smoking cessation discussed for >3mins.? @ -[No] Was critical care preformed (if so, how long)? @ -[No] Were there social determinants of health that impacted care today? How? (Homelessness, low income, unemployed, alcoholism, drug addiction, t ransportation, low edu. Level, literacy, decrease access to med. care, residential, rehab)? @ -[No] Was there de-escalation of care discussed even if they declined (Discuss DNR or withdrawal of care, Hospice)? DNR status @ -[No] What co-morbidities impacted this encounter? (DM, HTN, Smoking, COPD, CAD, Cancer, CVA, ARF, Chemo, Hep., AIDS, mental health diagnosis, sleep apnea, morbid obesity)? @ -[None] Was patient admitted / discharged? Hospital course, mention meds given and route, prescriptions, significant lab abnormalities, going to OR and other pertinent info. @ -Discharged. This is a pleasant 69-year-old male presents to the emergency department with back pain. Patient had a thorough history and physical exam performed while in the ED. Physical exam essentially unremarkable. Heart rate regular rate and rhythm, lungs are to auscultation bilaterally abdomen soft and nontender. Patient had laboratory studies and imaging studies which are negative. He was provided a liter of IV fluid symptomatic improvement in the ED. Return precautions were discussed at length. Recommend close follow-up with PCP in 1-2 days. Return precautions were d iscussed. Case discussed with GANESH Ng who agrees with plan of care Undiagnosed new problem with uncertain prognosis? @ -[No] Drug Therapy requiring intensive monitoring for toxicity (Heparin, Nitro, Insulin, Cardizem)? @ -[No] Were any procedures done? @ -[No] Diagnosis/symptom? @ -Flank Pain Acute, or Chronic, or Acute on Chronic? @ -Acute Uncomplicated (without systemic symptoms) or Complicated (systemic symptoms)? @ -Uncomplicated Side effects of treatment? @ -[No] Exacerbation, Progression, or Severe Exacerbation? @ -[No] Poses a threat to life or bodily function? How? (Chest pain, [place], [place], pneumonia, PE, COPD, DKA, ARF, appy, cholecystitis, CVA, Diverticulitis, Homicidal, Suicidal, threat to staff... and all critical care pts) @ -Low likelihood (Cinthya Vaca) - Lab Data Lab Results 05/17/23 05/17/23 05/17/23 Range/Units 12:24 12:24 12:24 WBC 7.0 (3.8-10.6) k/uL RBC 5.15 (4.30-5.90) m/uL Hgb 15.7 (13.0-17.5) gm/dL Hct 46.3 (39.0-53.0) % MCV 90.0 (80.0-100.0) fL MCH 30.5 (25.0-35.0) pg MCHC 33.9 (31.0-37.0) g/dL RDW 14.8 (11.5-15.5) % Plt Count 136 L (150-450) k/uL MPV 8.6 Neutrophils % 89 % Lymphocytes % 5 % Monocytes % 3 % Eosinophils % 1 % Basophils % 0 % Neutrophils # 6.3 (1.3-7.7) k/uL Lymphocytes # 0.3 L (1.0-4.8) k/uL Monocytes # 0.2 (0-1.0) k/uL Eosinophils # 0.1 (0-0.7) k/uL Basophils # 0.0 (0-0.2) k/uL Sodium 133 L (137-145) mmol/L Potassium 4.0 (3.5-5.1) mmol/L Chloride 100 (98-107) mmol/L Carbon Dioxide 26 (22-30) mmol/L Anion Gap 7 mmol/L BUN 22 H (9-20) mg/dL Creatinine 1.02 (0.66-1.25) mg/dL Est GFR (CKD-EPI)AfAm 88 (>60 ml/min/1.73 sqM) Est GFR (CKD-EPI)NonAf 77 (>60 ml/min/1.73 sqM) Glucose 102 H (74-99) mg/dL Plasma Lactic Acid Braden (0.7-2.0) mmol/L Calcium 8.7 (8.4-10.2) mg/dL Total Bilirubin 0.8 (0.2-1.3) mg/dL AST 45 (17-59) U/L ALT 34 (4-49) U/L Alkaline Phosphatase 55 (38-126) U/L Troponin I (0.000-0.034) ng/mL Total Protein 6.3 (6.3-8.2) g/dL Albumin 3.5 (3.5-5.0) g/dL Amylase 40 (30-110) U/L Lipase 19 L (23-300) U/L Urine Color Yellow Urine Appearance Clear (Clear) Urine pH 6.0 (5.0-8.0) Ur Specific Terrell 1.050 H (1.001-1.035) Urine Protein 3+ H (Negative) Urine Glucose (UA) Negative (Negative) Urine Ketones 3+ H (Negative) Urine Blood Trace H (Negative) Urine Nitrite Negative (Negative) Urine Bilirubin 1+ H (Negative) Urine Urobilinogen 3.0 (<2.0) mg/dL Ur Leukocyte Esterase Negative (Negative) Urine RBC 2 (0-5) /hpf Urine WBC 1 (0-5) /hpf Urine Mucus Few H (None) /hpf 05/17/23 05/17/23 Range/Units 12:24 12:24 WBC (3.8-10.6) k/uL RBC (4.30-5.90) m/uL Hgb (13.0-17.5) gm/dL Hct (39.0-53.0) % MCV (80.0-100.0) fL MCH (25.0-35.0) pg MCHC (31.0-37.0) g/dL RDW (11.5-15.5) % Plt Count (150-450) k/uL MPV Neutrophils % % Lymphocytes % % Monocytes % % Eosinophils % % Basophils % % Neutrophils # (1.3-7.7) k/uL Lymphocytes # (1.0-4.8) k/uL Monocytes # (0-1.0) k/uL Eosinophils # (0-0.7) k/uL Basophils # (0-0.2) k/uL Sodium (137-145) mmol/L Potassium (3.5-5.1) mmol/L Chloride (98-107) mmol/L Carbon Dioxide (22-30) mmol/L Anion Gap mmol/L BUN (9-20) mg/dL Creatinine (0.66-1.25) mg/dL Est GFR (CKD-EPI)AfAm (>60 ml/min/1.73 sqM) Est GFR (CKD-EPI)NonAf (>60 ml/min/1.73 sqM) Glucose (74-99) mg/dL Plasma Lactic Acid Braden 1.0 (0.7-2.0) mmol/L Calcium (8.4-10.2) mg/dL Total Bilirubin (0.2-1.3) mg/dL AST (17-59) U/L ALT (4-49) U/L Alkaline Phosphatase (38-126) U/L Troponin I <0.012 (0.000-0.034) ng/mL Total Protein (6.3-8.2) g/dL Albumin (3.5-5.0) g/dL Amylase (30-110) U/L Lipase (23-300) U/L Urine Color Urine Appearance (Clear) Urine pH (5.0-8.0) Ur Specific Terrell (1.001-1.035) Urine Protein (Negative) Urine Glucose (UA) (Negative) Urine Ketones (Negative) Urine Blood (Negative) Urine Nitrite (Negative) Urine Bilirubin (Negative) Urine Urobilinogen (<2.0) mg/dL Ur Leukocyte Esterase (Negative) Urine RBC (0-5) /hpf Urine WBC (0-5) /hpf Urine Mucus (None) /hpf Disposition <Raimundo Stuart - Last Filed: 05/17/23 12:07> Is patient prescribed a controlled substance at d/c from ED?: No Time of Disposition: 16:18 <Cinthya Vaca - Last Filed: 05/17/23 18:47> Clinical Impression: Back pain Disposition: HOME SELF-CARE Condition: Stable Instructions (If sedation given, give patient instructions): Acute Low Back Pain (ED) Additional Instructions: Please return to the nearest emergency department symptoms worsen or persist Referrals: Jose Olivares DO [Primary Care Provider] - 1-2 days
[2023-05-17 13:02] LABS: Basophils % (A) 0 %; Eosinophils # (A) 0.1 k/uL (0-0.7); Eosinophils % (A) 1 %; HCT 46.3 % (39.0-53.0); HGB 15.7 gm/dL (13.0-17.5); Lymphocytes # (A) 0.3 k/uL (1.0-4.8); Lymphocytes % (A) 5 %; MCH 30.5 pg (25.0-35.0); MCHC 33.9 g/dL (31.0-37.0); Mean Platelet Volume 8.6; Monocytes # (A) 0.2 k/uL (0-1.0); Monocytes % (A) 3 %; Neutrophils # (A) 6.3 k/uL (1.3-7.7); Neutrophils % (A) 89 %; Platelet Count 136 k/uL (150-450); RBC 5.15 m/uL (4.30-5.90); RDW 14.8 % (11.5-15.5)
[2023-05-17 13:05] LABS: Appearance,Urine Clear (Clear); Bilirubin,Urine 1+ (Negative); Blood,Urine Trace (Negative); Color,Urine Yellow; Glucose,Urine (UA) Negative (Negative); Ketones,Urine 3+ (Negative); Leukocyte Esterase,Urine Negative (Negative); Mucus,Urine Few /hpf; Nitrite,Urine Negative (Negative); Protein,Urine 3+ (Negative); RBC,Urine 2 /hpf (0-5); WBC,Urine 1 /hpf (0-5)
[2023-05-17 13:17] LABS: ALT 34 U/L (4-49); AST 45 U/L (17-59); African American GFR (CKD) 88 (>60 ml/min/1.73 sqM); Albumin 3.5 g/dL (3.5-5.0); Alkaline Phosphatase 55 U/L (38-126); Amylase 40 U/L (30-110); Anion Gap 7 mmol/L; Blood Urea Nitrogen 22 mg/dL (9-20); Calcium 8.7 mg/dL (8.4-10.2); Carbon Dioxide 26 mmol/L (22-30); Chloride 100 mmol/L (98-107); Glucose 102 mg/dL (74-99); Lipase 19 U/L (23-300); Non-African American GFR(CKD) 77 (>60 ml/min/1.73 sqM); Sodium 133 mmol/L (137-145); Total Bilirubin 0.8 mg/dL (0.2-1.3); Total Protein 6.3 g/dL (6.3-8.2)
--- NOTE | 2023-05-17 13:34 | XR ---
EXAMINATION TYPE: XR KUB DATE OF EXAM: 05/17/2023 COMPARISON: 06/10/2015 INDICATION: Abdomen pain low back pain TECHNIQUE: Single view abdomen upright view FINDINGS: There is a normal bowel gas pattern. No free air is under the diaphragm Psoas margins are normal. No organomegaly is present. Prior cholecystectomy is evident. Scoliosis within the lumbar spine. There is loss of joint space bilateral hips. IMPRESSION: 1. Unremarkable Abdomen. 2. Scoliosis within the lumbar spine
--- NOTE | 2023-05-17 13:35 | XR ---
EXAMINATION TYPE: XR chest 2V DATE OF EXAM: 05/17/2023 COMPARISON: 03/22/2023 INDICATION: Pain low back TECHNIQUE: Frontal and lateral views of the chest are obtained. FINDINGS: The heart size is normal. The pulmonary vasculature is normal. The lungs are clear. Sternotomy wires are in the midline. IMPRESSION: 1. No acute pulmonary process.
[2023-05-17] MEDS ORDERED: SODIUM CHLORIDE 0.9% 1,000 ML IV ONE (15:26)
[2023-05-17] MEDS ORDERED: ACETAMINOPHEN TAB 325 MG TAB PO STA (15:42)
[2023-05-18 15:45] VITALS: BP 112/74; PULSE 101; RESP 16; TEMP 98.5
== END 2023-05-17 16:56 | disposition home or self-care (01) ==
LOC: EC 11:40
DX: M54.6 Pain in thoracic spine (principal); I10 Essential (primary) hypertension; I48.91 Unspecified atrial fibrillation; F32.A Depression, unspecified; F41.9 Anxiety disorder, unspecified; Z79.01 Long term (current) use of anticoagulants; Z79.899 Other long term (current) drug therapy; Z87.891 Personal history of nicotine dependence; Z90.49 Acquired absence of other specified parts of digestive tract
CPT/HCPCS: 36415; 71046; 74018; 80053; 81001; 82150; 83605; 83690; 84484; 85025; 99284